=== PATIENT | female | born 1960 | race Hispanic/Latino ===

== ENCOUNTER 2017-03-12 10:04 | Day surgery (SDC) | payer MEDICARE, MEDICAID ==
[2016-03-15 19:54] VITALS: BMI 16.9
[2017-03-12 11:06] LABS: EOS % 0.2 % (1.5-5.0); GRAN # 4.16 (1.4-6.5); GRAN % 71.2 % (50.0-68.0); HEMATOCRIT 42.5 % (36.0-48.0); MEAN CORPUSCULAR HEMOGLOBIN 32.2 pg (25.0-35.0); MEAN CORPUSCULAR HGB CONC 34.6 g/dl (31.0-37.0); MONO # 0.7 (0.1-0.6); MONO % 11.6 % (1.0-6.0); RED CELL DISTRIBUTION WIDTH 13.8 % (11.5-14.5); WHITE BLOOD COUNT 5.8 10^3/ul (4.5-11.0)
[2017-03-12] MEDS ORDERED: Midazolam 2 MG/2 ML VIAL ONE (11:29)
[2017-03-12] MEDS ORDERED: Lidocaine 1% Inj (20ml) ONE (11:30)
[2017-03-12] MEDS ORDERED: Oxycodone/Acetaminophen 5/325 mg Tab PO PRN (13:36)
[2017-03-12] MEDS ORDERED: Sodium Chloride 0.45% 1,000 ML IV SCH (13:45)
[2017-03-12 14:34] VITALS: BP 133/88; PULSE 61; RESP 20; TEMP 98.1; O2SAT 97
--- NOTE | 2017-03-12 16:29 | RAD ---
HISTORY: lt lung bx COMPARISON: Portable chest 05/13/2015. FINDINGS: Right center venous chest port unchanged in position grossly. LUNGS: An interval left pulmonary nodule is appreciated at the inferior left lung zone with an additional smaller nodule identified more inferiorly approaching the left base laterally. The medial left apical mass is appreciated. No acute infiltrate bilaterally. PLEURA: No significant pleural effusion identified, no pneumothorax apparent. CARDIOVASCULAR: Normal. OSSEOUS STRUCTURES: No significant abnormalities. VISUALIZED UPPER ABDOMEN: Normal. OTHER FINDINGS: None. IMPRESSION: 1. No acute infiltrate pleural effusion or pneumothorax identified bilaterally. 2. 2 small nodules identified the inferior left lung zone in the interval as well as medial left apical mass.
--- NOTE | 2017-03-12 17:57 | CT ---
PROCEDURE: CT guided left upper lobe lung biopsy. HISTORY: Metastatic rectal carcinoma. Multiple pulmonary nodules. Evaluate for malignancy and MSI PHYSICIAN(S): Oscar Burk MD. TECHNIQUE: The relative risks and indications of the procedure were explained to the patient and consent obtained. The patient was placed supine on the CT scanner and preliminary images through the lung apices obtained. Conscious sedation and monitoring were provided throughout the procedure by a nurse. There is a dominant 4.5 cm mass at the left apex anteriorly.. A anterior approach was selected and the area prepped and draped in the usual sterile fashion. 1% Xylocaine was used to anesthetize the skin and soft tissues. A 19 gauge guiding needle was advanced into the 4.5 cm left apical mass. Its position was confirmed with CT. Using coaxial technique, multiple core biopsies were obtained. The postprocedure images show no evidence of large pneumothorax or significant hemorrhage.. IMPRESSION: 1. CT-guided left lung biopsy as described above.
== END 2017-03-12 14:25 | disposition home or self-care (01) ==
LOC: SDS 10:04
PROVIDERS: ATTEND Radiology Vascular & Interventional Radiology
DX: C78.02 Secondary malignant neoplasm of left lung (principal); C19 Malignant neoplasm of rectosigmoid junction; Z93.3 Colostomy status; Z98.42 Cataract extraction status, left eye; Z98.41 Cataract extraction status, right eye; F17.200 Nicotine dependence, unspecified, uncomplicated
CPT/HCPCS: 32405; 36415; 71010; 77012; 85025; 88305; 99152; J1642; J2250; J2405; J3010; J7030

== ENCOUNTER 2017-05-22 13:21 | Inpatient (IN) | payer MEDICARE, MEDICAID ==
[2017-05-22] MEDS ORDERED: Ipratropium 0.02% Inhal Soln (0.5 mg/2.5 ml) UD IH STA (13:42)
[2017-05-22] MEDS ORDERED: Sodium Chloride 0.9% 500 ML IV STA (13:44)
[2017-05-22] MEDS ORDERED: HYDROmorphone 1 mg/ml ISec IVP STA (14:15)
--- NOTE | 2017-05-22 14:32 | ED PDOC ---
Arrival/HPI - General Chief Complaint: Flu-like Symptoms Time Seen by Provider: 05/22/17 13:41 Historian: Patient - Critical Care Critical Care Minutes: 90 minutes - History of Present Illness Narrative History of Present Illness (Text): 05/22/17 14:25 A 57 year old female, whose past medical history includes metastatic colorectal caner since October 2014 on Folfiri-avastin chemotherapy regimen since 2016 every other 2 weeks, COPD, s/p colostomy placement on 05/12/15, and s/p chemotherapy port placement, presents to the emergency department complaining of hot and cold chills for the past several days. Patient notes increased diffuse bone pain and chronic productive cough with white mucous. Patient was sent into the emergency department by PMD for occult bacterium. Patient denies any fever, nausea, vomiting, abdominal pain, chest pain, shortnss of breath or any other affective foci. Time/Duration: Other (several days) Symptom Course: Unchanged Quality: Other Context: Home Past Medical History - Provider Review Nursing Documentation Reviewed: Yes - Infectious Disease Hx of Infectious Diseases: None - Tetanus Immunization Tetanus Immunization: Unknown - Cardiac Hx Cardiac Disorders: No Hx Pacemaker: No - Pulmonary Hx Respiratory Disorders: No Other/Comment: FORMER SMOKER - Neurological Hx Neurological Disorder: No Hx Paralysis: No - HEENT Hx HEENT Disorder: No - Renal Hx Renal Disorder: No - Endocrine/Metabolic Hx Endocrine Disorders: No - Hematological/Oncological Hx Blood Transfusions: Yes (2014) Hx Blood Transfusion Reaction: No - Integumentary Hx Dermatological Disorder: No Other/Comment: ON RADIATION TX WITH YANNICK RECTUM PERINEAL REDNESS & EDEMA, has healed, skin is now pink - Musculoskeletal/Rheumatological Hx Musculoskeletal Disorders: No - Gastrointestinal Hx Gastrointestinal Disorders: Yes (rectovaginal fistula) Hx Colostomy: Yes (LLQ) Other/Comment: 2cm x 1cm rectal mass noted, +cdif 02/2015 - Genitourinary/Gynecological Hx Genitourinary Disorders: No - Psychiatric Hx Emotional Abuse: No Hx Physical Abuse: No Hx Substance Use: No - Surgical History Other/Comment: LLQ colostomy. R chest port - Anesthesia Hx Anesthesia Reactions: No Hx Malignant Hyperthermia: No - Suicidal Assessment Feels Threatened In Home Enviroment: No Family/Social History - Physician Review Nursing Documentation Reviewed: Yes Family/Social History: No Known Family HX Smoking Status: Former Smoker Hx Alcohol Use: Yes (OCCASIONAL) Hx Substance Use: No Hx Substance Use Treatment: No Allergies/Home Meds Allergies/Adverse Reactions: Allergies piperacillin Allergy (Mild, Verified 05/22/17 19:37) ITCHING ITCHING AND REDNESS OF HANDS AND TINGLING IN LIPS tazobactam Allergy (Mild, Verified 05/22/17 19:37) ITCHING ITCHING AND REDNESS OF HANDS AND TINGLING IN LIPS Home Medications: Home Meds Medication Instructions Recorded Confirmed Ergocalciferol (Vitamin D2) 50,000 units PO FRI 03/04/16 05/22/17 [Vitamin D2] Ferrous Sulfate [Feosol] 325 mg PO DAILY 03/04/16 05/22/17 Pantoprazole Sodium [Protonix] 40 mg PO DAILY 06/10/16 05/22/17 Albuterol HFA [Ventolin HFA 90 2 puff IH Q6H PRN 03/11/17 05/22/17 mcg/actuation (8 g)] Doxycycline Monohydrate 100 mg PO BID 03/11/17 05/22/17 Magnesium Oxide [Magnesium] 400 mg PO TID 03/11/17 05/22/17 Pyridoxine [Vitamin B6] 100 mg PO DAILY 03/11/17 05/22/17 oxyCODONE [oxyCODONE Immediate 30 mg PO Q6H PRN 03/11/17 05/22/17 Release Tab] Review of Systems - Physician Review All systems were reviewed & negative as marked: Yes - Review of Systems Constitutional: Night Sweats. absent: Fevers Eyes: Normal ENT: Normal Respiratory: Cough, Sputum. absent: SOB Cardiovascular: absent: Chest Pain Gastrointestinal: absent: Abdominal Pain, Nausea, Vomiting Genitourinary Female: Normal Musculoskeletal: Other (bone pain) Skin: Normal Neurological: Normal Endocrine: Normal Hemo/Lymphatic: Normal Psychiatric: Normal Physical Exam Vital Signs Reviewed: Yes Vital Signs Temp Pulse Resp BP Pulse Ox 05/22/17 18:23 68 17 126/68 05/22/17 18:09 69 18 139/93 H 99 05/22/17 13:32 98.6 F 59 L 17 157/94 H 96 Temperature: Afebrile Blood Pressure: Hypertensive Pulse: Bradycardic Respiratory Rate: Normal Appearance: Positive for: Well-Appearing, Non-Toxic, Comfortable Pain Distress: None Mental Status: Positive for: Alert and Oriented X 3 - Systems Exam Head: Present: Atraumatic, Normocephalic Pupils: Present: PERRL Extroacular Muscles: Present: EOMI Conjunctiva: Present: Normal Mouth: Present: Moist Mucous Membranes Neck: Present: Normal Range of Motion Respiratory/Chest: Present: Clear to Auscultation, Good Air Exchange. No: Respiratory Distress, Accessory Muscle Use Cardiovascular: Present: Regular Rate and Rhythm, Normal S1, S2. No: Murmurs Abdomen: Present: Normal Bowel Sounds. No: Tenderness, Distention, Peritoneal Signs Back: Present: Normal Inspection Upper Extremity: Present: Normal Inspection. No: Cyanosis, Edema Lower Extremity: Present: Normal Inspection. No: Edema Neurological: Present: GCS=15, CN II-XII Intact, Speech Normal Skin: Present: Warm, Dry, Normal Color. No: Rashes Psychiatric: Present: Alert, Oriented x 3, Normal Insight, Normal Concentration Medical Decision Making ED Course and Treatment: 05/22/17 14:25 Impression: A 57 year old female with chills, increased bone pain and chronic productive cough. Sent by PMD for occult bacterium. Plan: -- Chest xray -- EKG -- Labs -- Blood and Urine culture -- Dilaudid, Atrovent and IV fluids -- Reassess and disposition Progress Notes: Report Date : 05/22/2017 14:45:09 Procedure: Chest xray Dictator : Melissa Rabago MD IMPRESSION: 1. Right MediPort terminates at the cavoatrial junction. 2. 2 metastatic nodules in the left lung and 1 in the right upper lobe. 3. No evidence of pneumonia. - Lab Interpretations Lab Results: 05/22/17 14:15 05/22/17 14:15 Lab Results 05/22/17 14:15: Sodium 142, Chloride 110 H, Potassium 3.7, Carbon Dioxide 21, Anion Gap 14, BUN 8, Creatinine 0.4 L, Est GFR ( Amer) > 60, Est GFR (Non -Af Amer) > 60, Random Glucose 107, Calcium 9.4, Total Bilirubin 0.7, AST 34, ALT 55, Alkaline Phosphatase 122, Lactate Dehydrogenase 395, Total Creatine Kinase < 20 L, Troponin I < 0.01, NT-Pro-B Natriuret Pep 304, Total Protein 6.9 , Albumin 4.0, Globulin 3.0, Albumin/Globulin Ratio 1.3 05/22/17 14:15: pO2 70 H, VBG pH 7.37, VBG pCO2 42.0, VBG HCO3 24.3, VBG Total CO2 25.6, VBG O2 Sat (Calc) 94.9 H, VBG Base Excess -1.1 L, VBG Potassium 3.8, Sodium 143.0, Chloride 108.0 H, Glucose 103, Lactate 2.0, FiO2 21.0, Venous Blood Potassium 3.8 05/22/17 14:15: PT 12.5, INR 1.14 H, APTT 29.5 05/22/17 14:15: WBC 4.3 L D, RBC 4.18, Hgb 13.4, Hct 40.7, MCV 97.4 D, MCH 32.1 , MCHC 32.9, RDW 15.8 H, Plt Count 169, MPV 9.8, Gran % 87.1 H, Lymph % (Auto) 10.6 L, [place] % (Auto) 2.3, Eos % (Auto) 0.0 L, Baso % (Auto) 0.0, Gran # 3.76, Lymph # 0.5 L, [place] # 0.1, Eos # 0.0, Baso # 0.00 I have reviewed the lab results: Yes - RAD Interpretation Radiology Orders: 05/22/17 13:42 CHEST TWO VIEWS (PA/LAT) [RAD] Stat - Medication Orders Current Medication Orders: Acetaminophen (Tylenol 325mg Tab) 650 mg PO Q6H PRN PRN Reason: Fever >100.4 F Albuterol/Ipratropium (Duoneb 3 Mg/0.5 Mg (3 Ml) Ud) 3 ml IH [id number] LACHO Last Admin: 05/22/17 19:37 Dose: 3 ml Albuterol/Ipratropium (Duoneb 3 Mg/0.5 Mg (3 Ml) Ud) 3 ml IH Q2H PRN PRN Reason: Shortness of Breath Enoxaparin Sodium (Lovenox) 30 mg SC DAILY LACHO PRN Reason: Protocol Ergocalciferol (Drisdol 50,000 Intl Units Cap) 1 cap PO FRI LACHO Ferrous Sulfate (Feosol) 324 mg PO DAILY LACHO Meropenem 1 gm/ Dextrose 100 mls @ 100 mls/hr IVPB Q8 LAHCO PRN Reason: Protocol Stop: 05/29/17 23:16 Vancomycin HCl (Vancomycin 1gm) 1 gm in 250 mls @ 167 mls/hr IVPB Q12H LACHO PRN Reason: Protocol Montelukast Sodium (Singulair) 10 mg PO HS LACHO Last Admin: 05/22/17 21:06 Dose: 10 mg Ondansetron HCl (Zofran Inj) 4 mg IVP Q4H PRN PRN Reason: Nausea/Vomiting Oxycodone HCl (Oxycodone Immediate Release Tab) 15 mg PO Q4 PRN PRN Reason: Pain, moderate (4-7) Oxycodone HCl (Oxycodone Immediate Release Tab) 30 mg PO Q6H PRN PRN Reason: Pain, severe (8-10) Last Admin: 05/22/17 20:26 Dose: 30 mg MAR Pain Assessment Document 05/22/17 20:26 MB (Rec: 05/22/17 20:26 [id number]) Pain Reassessment Is this a pain reassessment? No Sleep Is patient sleeping during reassessment? No Presence of Pain Presence of Pain Yes Location Left, Right or Bilateral Bilateral Upper or Lower Lower Pain Location Body Site Leg Description Description Constant Intensity of Pain at present 8 Pantoprazole Sodium (Protonix Ec Tab) 40 mg PO ACB LACHO Discontinued Medications Sodium Chloride (Sodium Chloride 0.9%) 500 mls @ 999 mls/hr IV .Q31M STA Stop: 05/22/17 14:14 Last Admin: 05/22/17 14:00 Dose: 999 mls/hr eMAR Start Stop Document 05/22/17 14:00 RG (Rec: 05/22/17 14:15 RG [id number]) Intravenous Solution Start Date 05/22/17 Start Time 14:15 End Date 05/22/17 Ipratropium [place] (Atrovent) 0.5 mg IH STAT STA Stop: 05/22/17 13:43 Last Admin: 05/22/17 13:59 Dose: 0.5 mg Oxycodone HCl (Oxycodone Immediate Release Tab) 15 mg PO STAT STA Stop: 05/22/17 14:59 Last Admin: 05/22/17 15:09 Dose: 15 mg - Scribe Statement The provider has reviewed the documentation as recorded by the Loraibe Clarissa Garcia Provider Scribe Attestation: All medical record entries made by the Scribe were at my direction and personally dictated by me. I have reviewed the chart and agree that the record accurately reflects my personal performance of the history, physical exam, medical decision making, and the department course for this patient. I have also personally directed, reviewed, and agree with the discharge instructions and disposition. Disposition/Present on Arrival - Present on Arrival Any Indicators Present on Arrival: No History of DVT/PE: No History of Uncontrolled Diabetes: No Urinary Catheter: No History of Decub. Ulcer: No History Surgical Site Infection Following: None - Disposition Have Diagnosis and Disposition been Completed?: Yes Diagnosis: Upper respiratory infection Disposition: HOSPITALIZED Disposition Time: 21:00 Patient Plan: Admission Condition: GUARDED
[2017-05-22 14:42] LABS: GRAN # 3.76 (1.4-6.5); GRAN % 87.1 % (50.0-68.0); HEMATOCRIT 40.7 % (36.0-48.0); LYMPH # 0.5 (1.2-3.4); LYMPH % 10.6 % (22.0-35.0); MEAN CELL VOLUME 97.4 fl (80.0-105.0); MEAN CORPUSCULAR HEMOGLOBIN 32.1 pg (25.0-35.0); MEAN CORPUSCULAR HGB CONC 32.9 g/dl (31.0-37.0); MEAN PLATELET VOLUME 9.8 fl (7.0-11.0); MONO # 0.1 (0.1-0.6); MONO % 2.3 % (1.0-6.0); RED CELL DISTRIBUTION WIDTH 15.8 % (11.5-14.5); WHITE BLOOD COUNT 4.3 10^3/ul (4.5-11.0)
--- NOTE | 2017-05-22 14:46 | RAD ---
HISTORY: COMPARISON: 03/12/2017 TECHNIQUE: Chest PA and lateral FINDINGS: LINES AND TUBES: The right MediPort terminates at the cavoatrial junction LUNG AND PLEURA: The lungs are well inflated. There is an apparent nodule in the right upper lobe. There is redemonstration of lobular mass in the left medial upper lobe and left lower lobe. HEART AND MEDIASTINUM: The heart is not enlarged. The hilar and mediastinal contours are within normal limits. SKELETAL STRUCTURES: The bony structures are within normal limits for the patient's age. VISUALIZED UPPER ABDOMEN: Normal. OTHER FINDINGS: None. IMPRESSION: 1. Right MediPort terminates at the cavoatrial junction. 2. 2 metastatic nodules in the left lung and 1 in the right upper lobe. 3. No evidence of pneumonia.
[2017-05-22 14:50] LABS: VENOUS BLOOD GAS BASE EXCESS -1.1 mmol/L (0.0-2.0); VENOUS BLOOD PH 7.37 (7.32-7.43)
[2017-05-22 14:53] LABS: INR 1.14 (0.93-1.08); PARTIAL THROMBOPLASTIN TIME 29.5 Seconds (25.1-36.5)
[2017-05-22 14:58] LABS: TROPONIN I < 0.01 ng/mL
[2017-05-22] MEDS ORDERED: oxyCODONE 15 mg Immediate Release Tab PO STA (14:58)
[2017-05-22 15:15] LABS: ALB/GLOB RATIO 1.3 (1.1-1.8); ALKALINE PHOSPHATASE 122 U/L (38-126); ALT/SGPT 55 U/L (7-56); AST/SGOT 34 U/L (14-36); BILIRUBIN,TOTAL 0.7 mg/dL (0.2-1.3); BLOOD UREA NITROGEN 8 mg/dL (7-21); CALCIUM 9.4 mg/dL (8.4-10.5); CARBON DIOXIDE 21 mmol/L (21-33); CHLORIDE 110 mmol/L (98-107); GFR AFRICAN-AMERICAN > 60; GLUCOSE,RANDOM 107 mg/dL (70-110); POTASSIUM 3.7 mmol/L (3.6-5.0); SODIUM 142 mmol/L (132-148); TOTAL PROTEIN 6.9 g/dL (5.8-8.3)
[2017-05-22] MEDS ORDERED: Piperacill/Tazo 4.5gm in NS 4.5 GM/100 ML BAG IVPB STA (16:43)
--- NOTE | 2017-05-22 17:35 | CP.PCM.HP ---
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 Patient states on top of the chills she has been experiencing cough productive with whitish sputum. Denies sick contact. Admits to runny nose, but contributed that to the chemo side effect. Patient was also on Dr Brooks's office on 05/21 complaining of the same symptoms and at the time had blood cultures drawn which are so far negative, procal was elevated at 0.93. ROS: Patient denies decreased appetite, sleeps ok. Denies night sweats, denies fever, admits to chills. Denies n/v/d, dysurea, abdominal pain or constipation. Denies headache, dizziness or blurred vision Denies chest pain, or shortness of breath. Admits to petechial rash PMH: stage 4 metastatic rectal carcinoma metastatic to the lungs, with kras wild type positive, chronic abdominal pain. PSH: abdominoperitoneal resection and colostomy FMH: non contributory Social: Patient states she quit smoking when she found out she had the cancer, however smokes occasionally when she stressed, last tobacco was 2 weeks ago. Denies alcohol or illicit drug use. Allergy: piperacillin and tazobactam. Home meds: Please see araceli for full list. Present on Admission - Present on Admission Any Indicators Present on Admission: No History of DVT/PE: No Urinary Catheter: No Decubitus Ulcer Present: No History Surgical Site Infection Following: None Review of Systems - Review of Systems Review of Systems: As per HPI. Past Patient History - Infectious Disease Hx of Infectious Diseases: None - Tetanus Immunizations Tetanus Immunization: Unknown - Past Medical History & Family History Past Medical History?: Yes - Past Social History Smoking Status: Current Some Days Smoker Alcohol: None Drugs: Denies Home Situation {Lives}: With Family - CARDIAC Hx Cardiac Disorders: No Hx Pacemaker: No - PULMONARY Hx Respiratory Disorders: No Other/Comment: FORMER SMOKER - NEUROLOGICAL Hx Neurological Disorder: No Hx Paralysis: No - HEENT Hx HEENT Problems: No - RENAL Hx Chronic Kidney Disease: No - ENDOCRINE/METABOLIC Hx Endocrine Disorders: No - HEMATOLOGICAL/ONCOLOGICAL Hx Blood Transfusions: Yes (2014) Hx Blood Transfusion Reaction: No - INTEGUMENTARY Hx Dermatological Problems: No Other/Comment: ON RADIATION TX WITH YANNICK RECTUM PERINEAL REDNESS & EDEMA, has healed, skin is now pink - MUSCULOSKELETAL/RHEUMATOLOGICAL Hx Musculoskeletal Disorders: No - GASTROINTESTINAL Hx Gastrointestinal Disorders: Yes (rectovaginal fistula) Hx Colostomy: Yes (LLQ) Other/Comment: 2cm x 1cm rectal mass noted, +cdif 02/2015 - GENITOURINARY/GYNECOLOGICAL Hx Genitourinary Disorders: No - PSYCHIATRIC Hx Emotional Abuse: No Hx Physical Abuse: No Hx Substance Use: No - SURGICAL HISTORY Other/Comment: LLQ colostomy. R chest port - ANESTHESIA Hx Anesthesia Reactions: No Hx Malignant Hyperthermia: No Meds Allergies/Adverse Reactions: Allergies Allergy/AdvReac Type Severity Reaction Status Date / Time piperacillin Allergy Mild ITCHING Verified 05/22/17 19:37 tazobactam Allergy Mild ITCHING Verified 05/22/17 19:37 Physical Exam - Constitutional Appears: No Acute Distress, Older Than Stated Age, Cachectic, Chronically Ill - Head Exam Head Exam: ATRAUMATIC, NORMAL INSPECTION, NORMOCEPHALIC - Eye Exam Eye Exam: EOMI, Normal appearance, PERRL. absent: Scleral icterus - ENT Exam ENT Exam: Mucous Membranes Moist Additional comments: Dry, crusted rash on the nose. - Neck Exam Neck exam: Positive for: Normal Inspection. Negative for: Lymphadenopathy, Meningismus, Tenderness, Thyromegaly Additional comments: + Right sided port cath. - Respiratory Exam Respiratory Exam: Clear to Auscultation Bilateral, NORMAL BREATHING PATTERN. absent: Prolonged Expiratory Phase, Rales, Rhonchi, Wheezes, Respiratory Distress, Stridor - Cardiovascular Exam Cardiovascular Exam: REGULAR RHYTHM, RRR, +S1, +S2. absent: Irregular Rhythm, Systolic Murmur - GI/Abdominal Exam GI & Abdominal Exam: Normal Bowel Sounds, Soft. absent: Distended, Firm, Tenderness Additional comments: + colostomy bag with pink bowel, and small stool in the bag. - Extremities Exam Extremities exam: Positive for: normal inspection. Negative for: pedal edema - Back Exam Back exam: NORMAL INSPECTION - Neurological Exam Neurological exam: Alert, Oriented x3 - Psychiatric Exam Psychiatric exam: Normal Affect, Normal Mood - Skin Skin Exam: Dry, Intact, Petechiae, Rash, Warm Results - Vital Signs Recent Vital Signs: Last Vital Signs Temp 98.6 F 05/22/17 13:32 Pulse 59 L 05/22/17 13:32 Resp 17 05/22/17 13:32 BP 157/94 H 05/22/17 13:32 Pulse Ox 96 05/22/17 13:32 - Labs Result Diagrams: 05/23/17 07:00 05/23/17 07:00 Labs: Laboratory Results - last 24 hr 05/22/17 05/22/17 05/22/17 14:15 14:15 14:15 WBC 4.3 L D RBC 4.18 Hgb 13.4 Hct 40.7 MCV 97.4 D MCH 32.1 MCHC 32.9 RDW 15.8 H Plt Count 169 MPV 9.8 Gran % 87.1 H Lymph % (Auto) 10.6 L [place] % (Auto) 2.3 Eos % (Auto) 0.0 L Baso % (Auto) 0.0 Gran # 3.76 Lymph # 0.5 L [place] # 0.1 Eos # 0.0 Baso # 0.00 PT 12.5 INR 1.14 H APTT 29.5 pO2 70 H VBG pH 7.37 VBG pCO2 42.0 VBG HCO3 24.3 VBG Total CO2 25.6 VBG O2 Sat (Calc) 94.9 H VBG Base Excess -1.1 L VBG Potassium 3.8 Sodium 143.0 Chloride 108.0 H Glucose 103 Lactate 2.0 FiO2 21.0 Potassium Carbon Dioxide Anion Gap BUN Creatinine Est GFR ( Amer) Est GFR (Non-Af Amer) Random Glucose Calcium Total Bilirubin AST ALT Alkaline Phosphatase Lactate Dehydrogenase Total Creatine Kinase Troponin I NT-Pro-B Natriuret Pep Total Protein Albumin Globulin Albumin/Globulin Ratio Venous Blood Potassium 3.8 05/22/17 14:15 WBC RBC Hgb Hct MCV MCH MCHC RDW Plt Count MPV Gran % Lymph % (Auto) [place] % (Auto) Eos % (Auto) Baso % (Auto) Gran # Lymph # [place] # Eos # Baso # PT INR APTT pO2 VBG pH VBG pCO2 VBG HCO3 VBG Total CO2 VBG O2 Sat (Calc) VBG Base Excess VBG Potassium Sodium 142 Chloride 110 H Glucose Lactate FiO2 Potassium 3.7 Carbon Dioxide 21 Anion Gap 14 BUN 8 Creatinine 0.4 L Est GFR ( Amer) > 60 Est GFR (Non-Af Amer) > 60 Random Glucose 107 Calcium 9.4 Total Bilirubin 0.7 AST 34 ALT 55 Alkaline Phosphatase 122 Lactate Dehydrogenase 395 Total Creatine Kinase < 20 L Troponin I < 0.01 NT-Pro-B Natriuret Pep 304 Total Protein 6.9 Albumin 4.0 Globulin 3.0 Albumin/Globulin Ratio 1.3 Venous Blood Potassium Assessment & Plan - Assessment and Plan (Free Text) Assessment: Mrs Negron is a 57 y/o Female with pmh of stage 4 metastatic rectal carcinoma metastatic to the lung s/p bowel resection and colosotmy, currently on systemic chemotherapy with camptosar and vectibix, s/p on chemo last week whom presented with chills for 3 days and cough productive with whitish sputum. Patient had blood work in the office and was found to have elevated procalcitonin, blood cultures so far negative. Plan: 1) Chills in the setting of productive cough- likely acute bronchitis - in the setting elevated procal, r/o pneumonia versus copd exacerbation versus tumor compressing the airway causing cough versus chemo side effects - Pro bnp 304, thus less likely chf exacerbation - Chest x-ray with metastatic disease, no pneumonia - afebrile, mild neutropenia. - Patient to be admitted for further work up - Repeat cultures sent - will obtain echo to r/o vegetation due to chemo port - ID consulted, patient was started on merrem, doxy and vanco - Pulm is also consulted - Will obtain influenza A and B - Duonebs q6 standing dose and q2 prn - Tessalon pearls for cough - Tylenol prn for fever. 2) Stage 4 metastatic rectal cancer met to lung s/p surgery and on chemo - patient to continue chemo upon discharge - Oxycodone and percocet prn for pain 3) H/o chronic abdominal pain with colostomy - Gi consulted - protonix for gi prophylaxis 4) Dvt prophylaxis- Lovenox sc. 5) Deconditioned state: PT/OT consulted. Patient seen, examined and case discussed with Dr Alvarez. - Date & Time Date: 05/22/17 Time: 18:15
[2017-05-22] MEDS ORDERED: Albuterol-Ipratrop 3 mg / 0.5 (3 ml) UD IH PRN (17:59)
[2017-05-22 18:15] LABS: VENOUS BLOOD GAS BASE EXCESS -0.8 mmol/L (0.0-2.0); VENOUS BLOOD PH 7.31 (7.32-7.43)
[2017-05-22] MEDS: Albuterol-Ipratrop 3 mg / 0.5 (3 ml) UD IH SCH (19:37)
[2017-05-22] MEDS: oxyCODONE 30 mg Immediate Release Tab PO PRN (20:26)
[2017-05-22 21:59] VITALS: BMI 19.3
[2017-05-22] MEDS ORDERED: Influenza Vaccine 60 mcg/0.5 mL SYR (4YR UP) IM ONE (21:59)
[2017-05-23] MEDS: Albuterol-Ipratrop 3 mg / 0.5 (3 ml) UD IH SCH ×4 (01:08→20:01)
[2017-05-23] MEDS: Meropenem 1 GM in Dextrose 5% In Water 100 ML IVPB SCH ×4 (04:38→21:38)
[2017-05-23] MEDS: Vancomycin 1gm in NS 250ml 1 GM/250 ML BAG IVPB SCH ×3 (04:39→22:27)
[2017-05-23] MEDS: oxyCODONE 15 mg Immediate Release Tab PO PRN ×3 (04:44→16:36)
--- NOTE | 2017-05-23 06:49 | CP.PCM.PN ---
Subjective - Date & Time of Evaluation Date of Evaluation: 05/23/17 Time of Evaluation: 06:45 - Subjective Subjective: Heme onc progress note for Dr Brooks service. Patient reports no acute events overnight. Reports she's feeling fatigued. States the chills has improved a little. Denies n/v/d. The cough is also improving with duonebs. Denies cp or sob. Objective - Vital Signs/Intake and Output Vital Signs (last 24 hours): Temp Pulse Resp BP Pulse Ox 97.9 F 68 17 126/68 99 05/22/17 21:27 05/22/17 21:27 05/22/17 21:27 05/22/17 21:27 05/22/17 18:09 Intake and Output: 05/22/17 05/23/17 18:59 06:59 Intake Total 960 Balance 960 - Medications Medications: Current Medications Acetaminophen (Tylenol 325mg Tab) 650 mg PO Q6H PRN PRN Reason: Fever >100.4 F Albuterol/Ipratropium (Duoneb 3 Mg/0.5 Mg (3 Ml) Ud) 3 ml IH [id number] [facility] Last Admin: 05/23/17 01:08 Dose: Not Given Albuterol/Ipratropium (Duoneb 3 Mg/0.5 Mg (3 Ml) Ud) 3 ml IH Q2H PRN PRN Reason: Shortness of Breath Enoxaparin Sodium (Lovenox) 30 mg SC DAILY [facility] PRN Reason: Protocol Ergocalciferol (Drisdol 50,000 Intl Units Cap) 1 cap PO FRI [facility] Ferrous Sulfate (Feosol) 324 mg PO DAILY [facility] Meropenem 1 gm/ Dextrose 100 mls @ 100 mls/hr IVPB Q8 [facility] PRN Reason: Protocol Stop: 05/29/17 23:16 Last Admin: 05/23/17 05:27 Dose: 100 mls/hr Vancomycin HCl (Vancomycin 1gm) 1 gm in 250 mls @ 167 mls/hr IVPB Q12H [facility] PRN Reason: Protocol Last Admin: 05/23/17 04:39 Dose: Not Given Montelukast Sodium (Singulair) 10 mg PO HS [facility] Last Admin: 05/22/17 21:06 Dose: 10 mg Ondansetron HCl (Zofran Inj) 4 mg IVP Q4H PRN PRN Reason: Nausea/Vomiting Oxycodone HCl (Oxycodone Immediate Release Tab) 15 mg PO Q4 PRN PRN Reason: Pain, moderate (4-7) Last Admin: 05/23/17 04:44 Dose: 15 mg Oxycodone HCl (Oxycodone Immediate Release Tab) 30 mg PO Q6H PRN PRN Reason: Pain, severe (8-10) Last Admin: 05/22/17 20:26 Dose: 30 mg Pantoprazole Sodium (Protonix Ec Tab) 40 mg PO ACB [facility] - Labs Labs: PT 12.5 SECONDS (9.4-12.5) 05/22/17 14:15 INR 1.14 (0.93-1.08) H 05/22/17 14:15 APTT 29.5 Seconds (25.1-36.5) 05/22/17 14:15 - Constitutional Appears: No Acute Distress, Cachectic, Chronically Ill - Head Exam Head Exam: ATRAUMATIC, NORMAL INSPECTION, NORMOCEPHALIC - Eye Exam Eye Exam: EOMI, Normal appearance, PERRL. absent: Scleral icterus - ENT Exam ENT Exam: Mucous Membranes Moist - Neck Exam Neck Exam: Normal Inspection - Respiratory Exam Respiratory Exam: Prolonged Expiratory Phase, Wheezes (mild at the right lower lobe. ). absent: Rales, Rhonchi, Respiratory Distress, Stridor, NORMAL BREATHING PATTERN - Cardiovascular Exam Cardiovascular Exam: REGULAR RHYTHM, +S1, +S2. absent: Murmur - GI/Abdominal Exam GI & Abdominal Exam: Soft, Normal Bowel Sounds. absent: Distended, Firm, Guarding, Rigid, Tenderness - Extremities Exam Extremities Exam: Normal Inspection. 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 Plan: 1) Shaking chills and productive cough: - Since patient is immunocompromised, with shaking chills, elevated procalcitonin, with productive cough in the setting of chemo port, its worrisome for HAP versus bacterial endocarditis especially with HACEK organism which are known to present in the setting of negative blood cultures. - repeat cultures pending, - ID following, on merrem, doxy, and vanco - Pulm is also following - Will continue with duonebs and tessalon perlse for cough. - Tylenol prn for fever - Cardiac echo is pending to evaluate for vegetation, if negative and symptoms persists, patient might need MARCIN. 2) Stage 4 metastatic rectal cancer met to lung s/p surgery and on chemo - Continue with oxycodone and percocet prn for pain 3) H/o chronic abdominal pain with colostomy - Gi consulted - protonix for gi prophylaxis 4) Dvt prophylaxis- Lovenox sc. 5) Deconditioned state: PT/OT consulted. Patient seen, examined and case discussed with Dr Brooks.
[2017-05-23 07:25] LABS: BASO # 0.01 K/mm3 (0.0-2.0); BASO % 0.3 % (0.0-3.0); EOS % 0.5 % (1.5-5.0); GRAN # 2.39 (1.4-6.5); GRAN % 59.7 % (50.0-68.0); HEMATOCRIT 36.2 % (36.0-48.0); LYMPH # 1.2 (1.2-3.4); MEAN CELL VOLUME 98.1 fl (80.0-105.0); MEAN CORPUSCULAR HEMOGLOBIN 32.8 pg (25.0-35.0); MEAN CORPUSCULAR HGB CONC 33.4 g/dl (31.0-37.0); MEAN PLATELET VOLUME 9.9 fl (7.0-11.0); MONO # 0.4 (0.1-0.6); MONO % 9.5 % (1.0-6.0); RED CELL DISTRIBUTION WIDTH 16.1 % (11.5-14.5)
[2017-05-23] MEDS: Pantoprazole 40 mg EC Tab PO SCH (08:07)
[2017-05-23 08:26] LABS: ALB/GLOB RATIO 1.3 (1.1-1.8); ALKALINE PHOSPHATASE 96 U/L (38-126); ALT/SGPT 48 U/L (7-56); AST/SGOT 27 U/L (14-36); BILIRUBIN,TOTAL 0.5 mg/dL (0.2-1.3); BLOOD UREA NITROGEN 10 mg/dL (7-21); CARBON DIOXIDE 26 mmol/L (21-33); CHLORIDE 110 mmol/L (98-107); GFR AFRICAN-AMERICAN > 60; GLUCOSE,RANDOM 83 mg/dL (70-110); POTASSIUM 3.8 mmol/L (3.6-5.0); SODIUM 141 mmol/L (132-148); TOTAL PROTEIN 5.8 g/dL (5.8-8.3)
[2017-05-23] MEDS ORDERED: Non Formulary Medication (Ferrous Sulfate [Feosol] 325 MG) PO SCH (10:00)
[2017-05-23] MEDS ORDERED: Pantoprazole 20 mg EC Tab PO SCH (10:00)
[2017-05-23] MEDS ORDERED: Ergocalciferol 50,000 Intl Units Cap PO SCH (10:00)
[2017-05-23] MEDS: Enoxaparin 30 mg Syringe SC SCH (10:20)
--- NOTE | 2017-05-23 11:25 | CP.PCM.CON ---
<Idania King - Last Filed: 05/23/17 11:21> History of Present Illness - History of Present Illness History of Present Illness: Seen and examined at bedside this a.m., chart reviewed. Request for GI consult for abdominal pain. HPI: This is an 57-year-old female with a past medical history of metastatic colorectal cancer with metastasis to the lungs diagnosed back in 2014 currently on chemotherapy, patient is on Campotosar and Vectibix. Last chemotherapy was 2 weeks ago, she reports that she has every 3 weeks. On Friday she started having chills, couging w/sputum but clear. Denies sick contact. She did experience 2 days ago mid abdominal pain near colostomy which was intermittent, currently she has no pain. The stool in the colostomy is formed soft brown stool , patient denies diarrhea or melena . Denies post prandial abdominal pain, has good appetite. Last colon was in 2014 done at [facility] , denies EGD, at times get acid reflux, on PPI. On admission had CXR that reports 2 metestatic nodules in the left lung and 1 in the upper right lobe, no pneumonia. Denies SOB or chest pain. Influenza is negative. PMH: Metestatic colorectal cancer w/ ramon to Lungs PSH: Abdominal peritoneal resection with colostomy ALllergies: pipercillin, tazobactam Family HX: noncontributory Social HX: former smoker, quit when found out have cancer, denies etoh/drugs MEDs: reviewed as per MAR ROS: systems reviewed with positive findings, see HPI Past Patient History - Infectious Disease Hx of Infectious Diseases: None - Tetanus Immunizations Tetanus Immunization: Unknown - Past Medical History & Family History Past Medical History?: Yes - Past Social History Smoking Status: Current Some Days Smoker Alcohol: None Drugs: Denies Home Situation {Lives}: With Family - CARDIAC Hx Cardiac Disorders: No Hx Pacemaker: No - PULMONARY Hx Respiratory Disorders: No Other/Comment: FORMER SMOKER - NEUROLOGICAL Hx Neurological Disorder: No Hx Paralysis: No - HEENT Hx HEENT Problems: No - RENAL Hx Chronic Kidney Disease: No - ENDOCRINE/METABOLIC Hx Endocrine Disorders: No - HEMATOLOGICAL/ONCOLOGICAL Hx Blood Transfusions: Yes (2014) Hx Blood Transfusion Reaction: No - INTEGUMENTARY Hx Dermatological Problems: No Other/Comment: ON RADIATION TX WITH YANNICK RECTUM PERINEAL REDNESS & EDEMA, has healed, skin is now pink - MUSCULOSKELETAL/RHEUMATOLOGICAL Hx Musculoskeletal Disorders: No - GASTROINTESTINAL Hx Gastrointestinal Disorders: Yes (rectovaginal fistula) Hx Colostomy: Yes (LLQ) Other/Comment: 2cm x 1cm rectal mass noted, +cdif 02/2015 - GENITOURINARY/GYNECOLOGICAL Hx Genitourinary Disorders: No - PSYCHIATRIC Hx Emotional Abuse: No Hx Physical Abuse: No Hx Substance Use: No - SURGICAL HISTORY Other/Comment: LLQ colostomy. R chest port - ANESTHESIA Hx Anesthesia Reactions: No Hx Malignant Hyperthermia: No Meds Allergies/Adverse Reactions: Allergies Allergy/AdvReac Type Severity Reaction Status Date / Time piperacillin Allergy Mild ITCHING Verified 05/22/17 19:37 tazobactam Allergy Mild ITCHING Verified 05/22/17 19:37 - Medications Medications: Current Medications Acetaminophen (Tylenol 325mg Tab) 650 mg PO Q6H PRN PRN Reason: Fever >100.4 F Albuterol/Ipratropium (Duoneb 3 Mg/0.5 Mg (3 Ml) Ud) 3 ml IH [id number] [facility] Last Admin: 05/23/17 07:29 Dose: 3 ml Albuterol/Ipratropium (Duoneb 3 Mg/0.5 Mg (3 Ml) Ud) 3 ml IH Q2H PRN PRN Reason: Shortness of Breath Benzonatate (Tessalon Perles) 100 mg PO TID [facility] Last Admin: 05/23/17 10:19 Dose: 100 mg Doxycycline Hyclate (Doryx) 100 mg PO Q12 [facility] PRN Reason: Protocol Last Admin: 05/23/17 10:19 Dose: 100 mg Enoxaparin Sodium (Lovenox) 30 mg SC DAILY [facility] PRN Reason: Protocol Last Admin: 05/23/17 10:20 Dose: 30 mg Ergocalciferol (Drisdol 50,000 Intl Units Cap) 1 cap PO FRI [facility] Last Admin: 05/23/17 10:19 Dose: 1 cap Ferrous Sulfate (Feosol) 324 mg PO DAILY [facility] Last Admin: 05/23/17 10:19 Dose: 324 mg Meropenem 1 gm/ Dextrose 100 mls @ 100 mls/hr IVPB Q8 [facility] PRN Reason: Protocol Stop: 05/29/17 23:16 Last Admin: 05/23/17 05:27 Dose: 100 mls/hr Vancomycin HCl (Vancomycin 1gm) 1 gm in 250 mls @ 167 mls/hr IVPB Q12H [facility] PRN Reason: Protocol Last Admin: 05/23/17 04:39 Dose: Not Given Montelukast Sodium (Singulair) 10 mg PO HS [facility] Last Admin: 05/22/17 21:06 Dose: 10 mg Ondansetron HCl (Zofran Inj) 4 mg IVP Q4H PRN PRN Reason: Nausea/Vomiting Oxycodone HCl (Oxycodone Immediate Release Tab) 15 mg PO Q4 PRN PRN Reason: Pain, moderate (4-7) Last Admin: 05/23/17 10:19 Dose: 15 mg Oxycodone HCl (Oxycodone Immediate Release Tab) 30 mg PO Q6H PRN PRN Reason: Pain, severe (8-10) Last Admin: 05/22/17 20:26 Dose: 30 mg Pantoprazole Sodium (Protonix Ec Tab) 40 mg PO ACB [facility] Last Admin: 05/23/17 08:07 Dose: 40 mg Physical Exam - Constitutional Appears: No Acute Distress - Head Exam Head Exam: NORMOCEPHALIC - Eye Exam Eye Exam: Normal appearance. absent: Scleral icterus - ENT Exam ENT Exam: Mucous Membranes Moist - Neck Exam Neck exam: Positive for: Normal Inspection - Respiratory Exam Respiratory Exam: Decreased Breath Sounds, NORMAL BREATHING PATTERN. absent: Respiratory Distress - Cardiovascular Exam Cardiovascular Exam: +S1, +S2 - GI/Abdominal Exam GI & Abdominal Exam: Normal Bowel Sounds, Soft. absent: Guarding, Rebound, Tenderness Additional comments: colosotomy present, with soft formed brown stool, stoma is pink, area is nontender. - Extremities Exam Extremities exam: Positive for: pedal pulses present. Negative for: calf tenderness, pedal edema - Neurological Exam Neurological exam: Alert, Oriented x3 - Skin Skin Exam: Dry, Warm Results - Vital Signs Recent Vital Signs: Last Vital Signs Temp 97.4 F L 05/23/17 08:08 Pulse 56 L 05/23/17 08:08 Resp 16 05/23/17 08:08 BP 132/85 05/23/17 08:08 Pulse Ox 97 05/23/17 08:08 - Labs Result Diagrams: 05/23/17 07:00 05/23/17 07:00 Labs: Laboratory Results - last 24 hr 05/22/17 05/23/17 05/23/17 18:12 06:11 07:00 WBC 4.0 L RBC 3.69 Hgb 12.1 Hct 36.2 MCV 98.1 MCH 32.8 MCHC 33.4 RDW 16.1 H Plt Count 131 MPV 9.9 Gran % 59.7 Lymph % (Auto) 30.0 [place] % (Auto) 9.5 H Eos % (Auto) 0.5 L Baso % (Auto) 0.3 Gran # 2.39 Lymph # 1.2 [place] # 0.4 Eos # 0.0 Baso # 0.01 pO2 42 VBG pH 7.31 L VBG pCO2 52.0 VBG HCO3 26.2 VBG Total CO2 27.8 VBG O2 Sat (Calc) 74.3 H VBG Base Excess -0.8 L VBG Potassium 3.7 Sodium 143.0 Chloride 110.0 H Glucose 165 H Lactate 2.0 FiO2 21.0 Potassium Carbon Dioxide Anion Gap BUN Creatinine Est GFR ( Amer) Est GFR (Non-Af Amer) Random Glucose Calcium Total Bilirubin AST ALT Alkaline Phosphatase Total Protein Albumin Globulin Albumin/Globulin Ratio Venous Blood Potassium 3.7 Influenza Typ A,B (EIA) Negative for flu a/b 05/23/17 07:00 WBC RBC Hgb Hct MCV MCH MCHC RDW Plt Count MPV Gran % Lymph % (Auto) [place] % (Auto) Eos % (Auto) Baso % (Auto) Gran # Lymph # [place] # Eos # Baso # pO2 VBG pH VBG pCO2 VBG HCO3 VBG Total CO2 VBG O2 Sat (Calc) VBG Base Excess VBG Potassium Sodium 141 Chloride 110 H Glucose Lactate FiO2 Potassium 3.8 Carbon Dioxide 26 Anion Gap 9 L BUN 10 Creatinine 0.5 L Est GFR ( Amer) > 60 Est GFR (Non-Af Amer) > 60 Random Glucose 83 Calcium 9.0 Total Bilirubin 0.5 AST 27 ALT 48 Alkaline Phosphatase 96 Total Protein 5.8 Albumin 3.3 Globulin 2.5 Albumin/Globulin Ratio 1.3 Venous Blood Potassium Influenza Typ A,B (EIA) Assessment & Plan - Assessment and Plan (Free Text) Assessment: ASSESSMENT: Metestatic colorectal cancer w/ metastasis to Lungs Abdominal Pain, currently denies pain, has colostomy Shaking/Chills/productive cough, r/o Sepsis, r/o endocarditis PLAN: on IV antibiotics pending echo on Lovenox continue PPI as per ID, oncology,pulmonology consider ct scan abdomen and pelvis with oral contrast further evaluation. Thank you for this consult and for allowing us to participate in your patient care, further evaluation based upon clinical course. Seen and discussed w/ Dr. Dvaid. <Alfredo David V - Last Filed: 05/24/17 00:59> Meds - Medications Medications: Current Medications Acetaminophen (Tylenol 325mg Tab) 650 mg PO Q6H PRN PRN Reason: Fever >100.4 F Albuterol/Ipratropium (Duoneb 3 Mg/0.5 Mg (3 Ml) Ud) 3 ml IH [id number] [facility] Last Admin: 05/23/17 20:01 Dose: 3 ml Albuterol/Ipratropium (Duoneb 3 Mg/0.5 Mg (3 Ml) Ud) 3 ml IH Q2H PRN PRN Reason: Shortness of Breath Benzonatate (Tessalon Perles) 100 mg PO TID [facility] Last Admin: 05/23/17 18:16 Dose: 100 mg Doxycycline Hyclate (Doryx) 100 mg PO Q12 [facility] PRN Reason: Protocol Last Admin: 05/23/17 21:37 Dose: 100 mg Enoxaparin Sodium (Lovenox) 30 mg SC DAILY [facility] PRN Reason: Protocol Last Admin: 05/23/17 10:20 Dose: 30 mg Ergocalciferol (Drisdol 50,000 Intl Units Cap) 1 cap PO FRI [facility] Last Admin: 05/23/17 10:19 Dose: 1 cap Ferrous Sulfate (Feosol) 324 mg PO DAILY [facility] Last Admin: 05/23/17 10:19 Dose: 324 mg Fluticasone Propionate (Flonase) 1 actuation NS BID [facility] Meropenem 1 gm/ Dextrose 100 mls @ 100 mls/hr IVPB Q8 [facility] PRN Reason: Protocol Stop: 05/29/17 23:16 Last Admin: 05/23/17 21:38 Dose: 100 mls/hr Vancomycin HCl (Vancomycin 1gm) 1 gm in 250 mls @ 167 mls/hr IVPB Q12H [facility] PRN Reason: Protocol Last Admin: 05/23/17 22:27 Dose: 167 mls/hr Methylprednisolone (Solu-Medrol) 20 mg IVP Q12 [facility] Montelukast Sodium (Singulair) 10 mg PO HS [facility] Last Admin: 05/23/17 21:37 Dose: 10 mg Ondansetron HCl (Zofran Inj) 4 mg IVP Q4H PRN PRN Reason: Nausea/Vomiting Oxycodone HCl (Oxycodone Immediate Release Tab) 15 mg PO Q4 PRN PRN Reason: Pain, moderate (4-7) Last Admin: 05/23/17 16:36 Dose: 15 mg Oxycodone HCl (Oxycodone Immediate Release Tab) 30 mg PO Q6H PRN PRN Reason: Pain, severe (8-10) Last Admin: 05/23/17 23:37 Dose: 30 mg Pantoprazole Sodium (Protonix Ec Tab) 40 mg PO ACB [facility] Last Admin: 05/23/17 08:07 Dose: 40 mg Results - Vital Signs Recent Vital Signs: Last Vital Signs Temp 98.4 F 05/23/17 16:00 Pulse 69 05/23/17 16:00 Resp 18 05/23/17 16:00 BP 113/72 05/23/17 16:00 Pulse Ox 100 05/23/17 16:00 - Labs Result Diagrams: 05/23/17 07:00 05/23/17 07:00 Labs: Laboratory Results - last 24 hr 05/23/17 05/23/17 05/23/17 06:11 07:00 07:00 WBC 4.0 L RBC 3.69 Hgb 12.1 Hct 36.2 MCV 98.1 MCH 32.8 MCHC 33.4 RDW 16.1 H Plt Count 131 MPV 9.9 Gran % 59.7 Lymph % (Auto) 30.0 [place] % (Auto) 9.5 H Eos % (Auto) 0.5 L Baso % (Auto) 0.3 Gran # 2.39 Lymph # 1.2 [place] # 0.4 Eos # 0.0 Baso # 0.01 Sodium 141 Potassium 3.8 Chloride 110 H Carbon Dioxide 26 Anion Gap 9 L BUN 10 Creatinine 0.5 L Est GFR ( Amer) > 60 Est GFR (Non-Af Amer) > 60 Random Glucose 83 Calcium 9.0 Magnesium Total Bilirubin 0.5 AST 27 ALT 48 Alkaline Phosphatase 96 Total Protein 5.8 Albumin 3.3 Globulin 2.5 Albumin/Globulin Ratio 1.3 Influenza Typ A,B (EIA) Negative for flu a/b 05/23/17 07:00 WBC RBC Hgb Hct MCV MCH MCHC RDW Plt Count MPV Gran % Lymph % (Auto) [place] % (Auto) Eos % (Auto) Baso % (Auto) Gran # Lymph # [place] # Eos # Baso # Sodium Potassium Chloride Carbon Dioxide Anion Gap BUN Creatinine Est GFR ( Amer) Est GFR (Non-Af Amer) Random Glucose Calcium Magnesium 1.4 L Total Bilirubin AST ALT Alkaline Phosphatase Total Protein Albumin Globulin Albumin/Globulin Ratio Influenza Typ A,B (EIA) Attending/Attestation - Attestation I have personally seen and examined this patient.: Yes I have fully participated in the care of the patient.: Yes I have reviewed all pertinent clinical information: Yes Notes (Text): p 05/24/17 00:42
--- NOTE | 2017-05-23 16:05 | CARD ---
APPROVED REPORT EXAM: Two-dimensional and M-mode echocardiogram with Doppler and color Doppler. INDICATION Dyspnea 2D DIMENSIONS Left Atrium (2D)3.6 (1.6-4.0cm)IVSd0.8 (0.7-1.1cm) LVDd4.5 (3.9-5.9cm)PWd1.1 (0.7-1.1cm) LVDs2.8 (2.5-4.0cm)FS (%) 36.8 % LVEF (%)66.9 (>50%) M-Mode DIMENSIONS Aortic Root3.00 (2.2-3.7cm)Aortic Cusp Exc.1.70 (1.5-2.0cm) Aortic Valve AoV Peak Shqogmcq012.0cm/Sandro Peak GR.7mmHg Mitral Valve MV E Kvqxhirr88.5cm/sMV A Qpbntsmz12.7cm/sE/A ratio1.2 TDI Lateral E' Peak V14.00cm/sMedial E' Peak V8.38cm/sE/Lateral E'5.3 E/Medial E'8.9 Pulmonary Valve PV Peak Csdnejsi90.0cm/sPV Peak Grad.2mmHg Tricuspid Valve TR Peak [id number]/sRAP [id number] Peak Gr.20mmHg [id number] LEFT VENTRICLE The left ventricle is normal size. There is normal left ventricular wall thickness. The left ventricular function is normal. The left ventricular ejection fraction is within the normal range. There is normal LV segmental wall motion. Transmitral Doppler flow pattern is Grade I-abnormal relaxation pattern. RIGHT VENTRICLE The right ventricle is normal size. There is normal right ventricular wall thickness. The right ventricular systolic function is normal. ATRIA The left atrium size is normal. The right atrium size is normal. AORTIC VALVE The aortic valve is not well visualized. No aortic regurgitation is present. There is no aortic valvular stenosis. MITRAL VALVE The mitral valve is normal in structure. There is no mitral valve regurgitation noted. TRICUSPID VALVE There is trace tricuspid regurgitation. PULMONIC VALVE There is trace pulmonic valvular regurgitation. GREAT VESSELS The aortic root is normal in size. The IVC is normal in size and collapses >50% with inspiration. PERICARDIAL EFFUSION There is a trace loculated anterior pericardial effusion. <Conclusion> The left ventricle is normal size. There is normal left ventricular wall thickness. The left ventricular function is normal. The left ventricular ejection fraction is within the normal range. There is normal LV segmental wall motion. Transmitral Doppler flow pattern is Grade I-abnormal relaxation pattern.
--- NOTE | 2017-05-23 17:40 | CARD ---
APPROVED REPORT EKG Measurement Heart [id number] <Conclusion> Sinus bradycardia Possible Left atrial enlargement T wave abnormality, consider anterior ischemia Abnormal ECG
--- NOTE | 2017-05-23 18:47 | CP.PCM.CON ---
History of Present Illness - History of Present Illness History of Present Illness: 57 year old female with PMH of metastatic rectal cancer (to the lungs) on chemotherapy with history of rectovaginal fistula S/P loop colostomy, history of treatment for Group C strep bacteremia,history of treatment for ESBL E. coli in the urine was brought in [place] [facility]'s office because the patient was complaining of chills for the past 3 days. She is complaining of dry cough but no shortness of breath, no rhinorrhea, some mylagias. She had not measured her temperatures at home. She denies headache or dizziness, no chest pain, no pain along the right chest wall port-a-cath, no nausea or vomiting, no abdominal pain, no diarrhea, no dysuria, no dysphagia, no sore throat. Infectious Diseases consult is requested to further evaluate and manage. Review of Systems - Review of Systems All systems: reviewed and no additional remarkable complaints except (as per HPI ) Past Patient History - Infectious Disease Hx of Infectious Diseases: None - Tetanus Immunizations Tetanus Immunization: Unknown - Past Medical History & Family History Past Medical History?: Yes - Past Social History Smoking Status: Current Some Days Smoker - CARDIAC Hx Cardiac Disorders: No Hx Pacemaker: No - PULMONARY Hx Respiratory Disorders: Yes (SMOKES OCCASIONALLY. LAST SMOKED MAR 2017 1 CIG.DEPENDING ON MOOD.) Hx Chronic Obstructive Pulmonary Disease (COPD): Yes Other/Comment: FORMER SMOKER - NEUROLOGICAL Hx Neurological Disorder: No - HEENT Hx HEENT Problems: No - RENAL Hx Chronic Kidney Disease: No - ENDOCRINE/METABOLIC Hx Endocrine Disorders: No - HEMATOLOGICAL/ONCOLOGICAL Hx Blood Disorders: Yes Hx Anemia: Yes (BT) Hx Cancer: Yes (RECTAL CA WITH LUNG METS COLON) Hx Chemotherapy: Yes Other/Comment: Colorectal CA - INTEGUMENTARY Hx Dermatological Problems: Yes Other/Comment: ON RADIATION TX WITH YANNICK RECTUM PERINEAL REDNESS & EDEMA, has healed, skin is now pink. LEFT COLOSTOMY. BILATERAL GROIN RASH - MUSCULOSKELETAL/RHEUMATOLOGICAL Hx Musculoskeletal Disorders: Yes Hx Back Pain: Yes Hx Falls: Yes - GASTROINTESTINAL Hx Gastrointestinal Disorders: Yes (rectovaginal fistula,HEMORRHOIDS) Hx Colostomy: Yes (LLQ) Other/Comment: 2cm x 1cm rectal mass noted, +cdif 02/2015 - GENITOURINARY/GYNECOLOGICAL Hx Genitourinary Disorders: No - PSYCHIATRIC Hx Emotional Abuse: No Hx Physical Abuse: No Hx Substance Use: No - SURGICAL HISTORY Hx Surgeries: Yes Other/Comment: LLQ colostomy. R chest port - ANESTHESIA Hx Anesthesia Reactions: No Hx Malignant Hyperthermia: No Meds Allergies/Adverse Reactions: Allergies Allergy/AdvReac Type Severity Reaction Status Date / Time piperacillin Allergy Mild ITCHING Verified 05/22/17 19:37 tazobactam Allergy Mild ITCHING Verified 05/22/17 19:37 - Medications Medications: Current Medications Acetaminophen (Tylenol 325mg Tab) 650 mg PO Q6H PRN PRN Reason: Fever >100.4 F Albuterol/Ipratropium (Duoneb 3 Mg/0.5 Mg (3 Ml) Ud) 3 ml IH [id number] [facility] Last Admin: 05/22/17 19:37 Dose: 3 ml Albuterol/Ipratropium (Duoneb 3 Mg/0.5 Mg (3 Ml) Ud) 3 ml IH Q2H PRN PRN Reason: Shortness of Breath Enoxaparin Sodium (Lovenox) 30 mg SC DAILY [facility] PRN Reason: Protocol Ergocalciferol (Drisdol 50,000 Intl Units Cap) 1 cap PO FRI [facility] Ferrous Sulfate (Feosol) 324 mg PO DAILY [facility] Montelukast Sodium (Singulair) 10 mg PO HS [facility] Last Admin: 05/22/17 21:06 Dose: 10 mg Ondansetron HCl (Zofran Inj) 4 mg IVP Q4H PRN PRN Reason: Nausea/Vomiting Oxycodone HCl (Oxycodone Immediate Release Tab) 15 mg PO Q4 PRN PRN Reason: Pain, moderate (4-7) Oxycodone HCl (Oxycodone Immediate Release Tab) 30 mg PO Q6H PRN PRN Reason: Pain, severe (8-10) Last Admin: 05/22/17 20:26 Dose: 30 mg Pantoprazole Sodium (Protonix Ec Tab) 40 mg PO ACB [facility] Physical Exam - Constitutional Appears: Non-toxic, No Acute Distress - Head Exam Head Exam: NORMAL INSPECTION - ENT Exam ENT Exam: Mucous Membranes Moist - Neck Exam Neck exam: Negative for: Lymphadenopathy, Meningismus - Respiratory Exam Respiratory Exam: Decreased Breath Sounds Additional comments: right anterior chest wall port site clean, intact, no tenderness, no erythema, no discharge - Cardiovascular Exam Cardiovascular Exam: +S1, +S2 - GI/Abdominal Exam GI & Abdominal Exam: Soft. absent: Tenderness Additional comments: left sided colostomy in place Results - Vital Signs Recent Vital Signs: Last Vital Signs Temp 97.9 F 05/22/17 21:27 Pulse 68 05/22/17 21:27 Resp 17 05/22/17 21:27 BP 126/68 05/22/17 21:27 Pulse Ox 99 05/22/17 18:09 - Labs Result Diagrams: 05/23/17 07:00 05/23/17 07:00 Labs: Laboratory Results - last 24 hr 05/22/17 18:12 pO2 42 VBG pH 7.31 L VBG pCO2 52.0 VBG HCO3 26.2 VBG Total CO2 27.8 VBG O2 Sat (Calc) 74.3 H VBG Base Excess -0.8 L VBG Potassium 3.7 Sodium 143.0 Chloride 110.0 H Glucose 165 H Lactate 2.0 FiO2 21.0 Venous Blood Potassium 3.7 Assessment & Plan - Assessment and Plan (Free Text) Plan: Assessment R/O port-related bacteremia in this patient experiencing chills R/O acute bronchitis 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 coli in the urine, probably a urinay tract infection / cystitis S/P Grp. C Strep bacteremia Plan started patient on Vancomycin, doxycycline and Merrem pending blood cx; CXR does not reveal infiltrates will monitor clinically
[2017-05-23] MEDS: oxyCODONE 30 mg Immediate Release Tab PO PRN (23:37)
[2017-05-24] MEDS: Albuterol-Ipratrop 3 mg / 0.5 (3 ml) UD IH SCH ×4 (01:43→20:50)
--- NOTE | 2017-05-24 02:43 | CON ---
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 She had been on chemotherapy as outpatient, seen at Dr. Brooks's office the day with the having chills from the last few days with dry cough. No sputum production. No hemoptysis or emesis. No hematuria. No diarrhea reported. Has a outpatient procalcitonin was drawn which is 0.93, seen by infectious disease was started on broad-spectrum antibiotics, covering healthcare-associated organism. She also have a right port catheters. PAST MEDICAL HISTORY: Metastatic rectal carcinoma involving the lungs and liver, chronic obstructive lung disease, history of rectovaginal fistula status post colostomy. SOCIAL HISTORY: He stopped smoking at the time of diagnosis of cancer. Denies any alcohol use. ALLERGIES: PIPERACILLIN AND TAZOBACTAM. FAMILY HISTORY: No significant cardiopulmonary disease reported. MEDICATIONS: She is on doxycycline 100 mg twice a day, vitamin D 50,000 units weekly, DuoNeb q. 2 hour p.r.n. and q. 6 hour around the clock, ferrous sulfate 324 mg daily, Lovenox 30 mg daily meropenem 1 g IV q. 8 hour, oxycodone immediate release 50 mg q. 4 hour p.r.n., oxycodone 30 mg for severe pain q. 6 hour, Protonix 40 mg ACB, Singulair 10 mg at bedtime, Tessalon Pearls 100 mg three times a day, Tylenol p.r.n. basis, vancomycin 1 g IV q. 12 hour, Zofran p.r.n. basis. REVIEW OF SYSTEM: No headache. Has some rhinitis, cough, no significant shortness of breath. No chest pain. No nausea, no vomiting, no abdominal pain, no leg pain or leg swelling. PHYSICAL EXAMINATION: GENERAL: Lying in the bed, no acute distress. VITAL SIGNS: Temperature is 98, heart rate 69, respiratory rate is 18, blood pressure 113/72, pulse ox 100% room air. HEENT: Moist mucous membrane. No ulcer or thrush. NECK: Supple. No JVD. LUNGS: Has few scattered rhonchi, overall fair airflow. HEART: S1 and S2. ABDOMEN: Soft, nontender, no organomegaly. EXTREMITIES: No edema. NEUROLOGIC: Awake, awake and follows simple commands. LABORATORY DATA: Shows hemoglobin 12.1, hematocrit 36.2, WBC 4.0, platelet is 131. INR 1.14. PTT is 30. ABG showed pH 7.31, pCO2 is 52, O2 is 42. Sodium 141, potassium 3.8, chloride 110, bicarbonate 26, BUN 10, creatinine 0.5, glucose 83, calcium is 9.0, magnesium is 1.4, AST 27, ALT 48, alk phos is 96. Albumin is 3.3. Influenza A and B negative. Microbiology, blood cultures, two sets, so far there is no growth. Had echocardiogram done today which shows a right ventricle systolic pressure is 30. Left ventricle is normal size as surgical while thickened the left ventricular function is normal. Has some greater abnormal relaxation pattern. IMPRESSION AND PLAN: Chronic obstructive lung disease, rectal carcinoma with metastatic disease to liver, especially lung with bilateral lymphadenopathy and mediastinal adenopathy component of chronic obstructive lung disease, mild cardiac diastolic dysfunction, history of high procalcitonin, already started on broad-spectrum antibiotics. We will add Flonase once for each nostril twice a day, Singulair 10 mg at bedtime, may give Solu-Medrol 20 mg twice a day for 48 hour, gastric prophylaxis, DVT prophylaxis. Thank you and we will follow with you. Baldemar Mcmahon MD
[2017-05-24] MEDS: MethylPREDNISolone 40 mg Vial IVP SCH ×3 (02:51→21:27)
[2017-05-24] MEDS: Meropenem 1 GM in Dextrose 5% In Water 100 ML IVPB SCH ×3 (05:40→21:27)
[2017-05-24] MEDS: oxyCODONE 15 mg Immediate Release Tab PO PRN ×3 (07:02→23:31)
[2017-05-24 07:45] LABS: BASO # 0.01 K/mm3 (0.0-2.0); BASO % 0.3 % (0.0-3.0); EOS % 1.2 % (1.5-5.0); GRAN # 1.96 (1.4-6.5); GRAN % 58.9 % (50.0-68.0); HEMATOCRIT 37.5 % (36.0-48.0); LYMPH % 31.2 % (22.0-35.0); MEAN CELL VOLUME 98.4 fl (80.0-105.0); MEAN CORPUSCULAR HEMOGLOBIN 31.5 pg (25.0-35.0); MEAN PLATELET VOLUME 10.5 fl (7.0-11.0); MONO # 0.3 (0.1-0.6); MONO % 8.4 % (1.0-6.0); RED CELL DISTRIBUTION WIDTH 16.3 % (11.5-14.5); WHITE BLOOD COUNT 3.3 10^3/ul (4.5-11.0)
[2017-05-24 08:02] LABS: ALB/GLOB RATIO 1.3 (1.1-1.8); ALKALINE PHOSPHATASE 88 U/L (38-126); ALT/SGPT 64 U/L (7-56); AST/SGOT 55 U/L (14-36); BILIRUBIN,TOTAL 0.5 mg/dL (0.2-1.3); BLOOD UREA NITROGEN 10 mg/dL (7-21); CALCIUM 8.8 mg/dL (8.4-10.5); CARBON DIOXIDE 29 mmol/L (21-33); CHLORIDE 106 mmol/L (98-107); GFR AFRICAN-AMERICAN > 60; GLUCOSE,RANDOM 82 mg/dL (70-110); POTASSIUM 3.3 mmol/L (3.6-5.0); SODIUM 140 mmol/L (132-148); TOTAL PROTEIN 5.8 g/dL (5.8-8.3)
[2017-05-24] MEDS: Fluticasone Nasal 50 mcg/Spray NS SCH ×2 (09:00→18:12)
[2017-05-24] MEDS: Enoxaparin 30 mg Syringe SC SCH (09:51)
[2017-05-24] MEDS: Pantoprazole 40 mg EC Tab PO SCH (09:51)
[2017-05-24] MEDS: Vancomycin 1gm in NS 250ml 1 GM/250 ML BAG IVPB SCH ×2 (10:54→21:35)
[2017-05-24] MEDS: Magnesium Oxide 400 mg Tab UD PO SCH (18:11)
[2017-05-24] MEDS: oxyCODONE 30 mg Immediate Release Tab PO PRN (18:15)
--- NOTE | 2017-05-24 18:47 | PN ---
DATE: 05/24/2017 SUBJECTIVE: The patient is seen earlier this morning in room 574, bed 1. She was awake and alert. No fever. No chills. PHYSICAL EXAMINATION: VITAL SIGNS: Temperature of 98.7, respiratory rate of 20, heart rate of 77, blood pressure is 100/62. HEENT: Unremarkable. NECK: Supple. LUNGS: Decreased breath sounds. HEART: Normal S1 and S2. ABDOMEN: Soft and nontender. LABORATORY DATA: Examination reveals a white count of 3.3, hemoglobin of 12, platelets of 134. Coagulation is noted. Chemistries reveals a BUN of 10 and creatinine of 0.6. Serology for influenza is negative. The patient had an HIV test in 11/2015, which was negative. MEDICATIONS: Review of our current orders reveals the patient to be on meropenem and vancomycin. ASSESSMENT AND PLAN: This is a 57-year-old female, seen early this morning in room 574, bed 1, rule out port-related bacteremia in a patient having chills versus bronchitis in the patient with metastatic rectal cancer, rectal vaginal fistula, status post loop colostomy and chemotherapy, history of Group C streptococcal bacteremia, currently on vancomycin and meropenem, and thus far the blood cultures have been negative at 48 hours. We will check on the final culture results. The patient is also on doxycycline in addition to vancomycin and meropenem. Parth Diamond MD
--- NOTE | 2017-05-24 23:45 | PN ---
PULMONARY PROGRESS NOTE DATE: 05/24/2017 REFERRING PHYSICIAN: Dr. Brooks. SUBJECTIVE: She is lying in the bed, feels much better compared to yesterday. Decreased shortness of breath. No chest pain. No nausea. No vomiting, diarrhea, leg pain or leg swelling. OBJECTIVE: GENERAL: In no acute distress. VITAL SIGNS: Temperature is 98, heart rate is 77, respiratory rate is 18, blood pressure is 100/62, and pulse ox is 98% on room air. HEENT: Moist mucous membranes. No ulcer or thrush. NECK: Supple. No JVD. LUNGS: Has a few scattered rhonchi. HEART: S1 and S2. ABDOMEN: Soft and nontender. No organomegaly. EXTREMITIES: No edema. NEUROLOGIC: Awake, alert, and follow simple commands. MEDICATIONS: She is on doxycycline 100 mg twice a day, vitamin D 50,000 units weekly, DuoNeb q.12 hours p.r.n., DuoNeb 6 hours [id number], ferrous sulfate 325 mg daily, Flonase 1 spray each nostril twice a day, Lovenox 30 mg subcutaneously daily, magnesium oxide 400 mg twice a day, meropenem 1 g IV q.8 hours, oxycodone immediate release 50 mg q.4 hours p.r.n. and oxycodone immediate release 30 mg q.6 hours p.r.n. for severe pain, potassium supplement, Protonix 40 mg daily, Singulair 10 mg daily, Solu-Medrol 20 mg twice a day, Tessalon Perles 100 mg 3 times a day, Tylenol p.r.n., vancomycin 1 g IV q.12 hours, and Zofran p.r.n. basis. LABORATORY DATA: Shows hemoglobin 12.0, hematocrit 37.5, WBC 3.3, and platelet count is 134. Sodium 140, potassium 3.3, chloride 106, bicarbonate 29, BUN is 10, creatinine is 0.6, glucose 82, and calcium is 8.8. AST 55, ALT 64, alkaline phosphatase is 88, and albumin is 3.3. Microbiology; blood culture and urine culture so far there is no growth. Had echocardiogram done yesterday, which shows right ventricular systolic pressure is 30, left ventricle is normal in size, and left ventricular wall thickening is normal with some mild diastolic dysfunction. IMPRESSION AND PLAN: Chronic obstructive lung disease, rectal carcinoma with the metastatic disease to the liver especially lung with bilateral nodules, mediastinal adenopathy, cardiac diastolic dysfunction, has high procalcitonin, being treated as a pneumonia and chronic obstructive pulmonary disease exacerbation. Case discussed with Dr. Brooks in detail. Continue antibiotics, covering healthcare-associated organism. Continue steroids, inhaled bronchodilator, gastric prophylaxis, deep venous thrombosis prophylaxis, out of bed to chair, and continue therapy. Thank you and we will follow with you. Baldemar Mcmahon MD
--- NOTE | 2017-05-25 00:13 | CP.PCM.PN ---
Subjective - Date & Time of Evaluation Date of Evaluation: 05/24/17 Time of Evaluation: 18:15 - Subjective Subjective: Feeling better abdominal discomfort is less tolerating the diet Objective - Vital Signs/Intake and Output Vital Signs (last 24 hours): Temp Pulse Resp BP Pulse Ox 98.7 F 77 20 100/62 98 05/24/17 16:25 05/24/17 16:25 05/24/17 16:25 05/24/17 16:25 05/24/17 16:25 Intake and Output: 05/24/17 05/25/17 18:59 06:59 Intake Total 1020 Balance 1020 - Medications Medications: Current Medications Acetaminophen (Tylenol 325mg Tab) 650 mg PO Q6H PRN PRN Reason: Fever >100.4 F Albuterol/Ipratropium (Duoneb 3 Mg/0.5 Mg (3 Ml) Ud) 3 ml IH [id number] [facility] Last Admin: 05/24/17 20:50 Dose: 3 ml Albuterol/Ipratropium (Duoneb 3 Mg/0.5 Mg (3 Ml) Ud) 3 ml IH Q2H PRN PRN Reason: Shortness of Breath Benzonatate (Tessalon Perles) 100 mg PO TID [facility] Last Admin: 05/24/17 18:11 Dose: 100 mg Doxycycline Hyclate (Doryx) 100 mg PO Q12 [facility] PRN Reason: Protocol Last Admin: 05/24/17 21:27 Dose: 100 mg Enoxaparin Sodium (Lovenox) 30 mg SC DAILY [facility] PRN Reason: Protocol Last Admin: 05/24/17 09:51 Dose: 30 mg Ergocalciferol (Drisdol 50,000 Intl Units Cap) 1 cap PO FRI [facility] Last Admin: 05/23/17 10:19 Dose: 1 cap Ferrous Sulfate (Feosol) 324 mg PO DAILY [facility] Last Admin: 05/24/17 09:51 Dose: 324 mg Fluticasone Propionate (Flonase) 1 actuation NS BID [facility] Last Admin: 05/24/17 18:12 Dose: Not Given Meropenem 1 gm/ Dextrose 100 mls @ 100 mls/hr IVPB Q8 [facility] PRN Reason: Protocol Stop: 05/29/17 23:16 Last Admin: 05/24/17 21:27 Dose: 100 mls/hr Vancomycin HCl (Vancomycin 1gm) 1 gm in 250 mls @ 167 mls/hr IVPB Q12H [facility] PRN Reason: Protocol Last Admin: 05/24/17 21:35 Dose: 167 mls/hr Potassium Chloride 20 meq/ (Sodium Chloride) 1,010 mls @ 60 mls/hr IV .[id number] [facility] Last Admin: 05/24/17 18:11 Dose: 60 mls/hr Magnesium Oxide (Mag-Ox) 400 mg PO BID [facility] Last Admin: 05/24/17 18:11 Dose: 400 mg Methylprednisolone (Solu-Medrol) 20 mg IVP Q12 [facility] Last Admin: 05/24/17 21:27 Dose: 20 mg Montelukast Sodium (Singulair) 10 mg PO HS [facility] Last Admin: 05/24/17 21:27 Dose: 10 mg Ondansetron HCl (Zofran Inj) 4 mg IVP Q4H PRN PRN Reason: Nausea/Vomiting Oxycodone HCl (Oxycodone Immediate Release Tab) 15 mg PO Q4 PRN PRN Reason: Pain, moderate (4-7) Last Admin: 05/24/17 23:31 Dose: 15 mg Oxycodone HCl (Oxycodone Immediate Release Tab) 30 mg PO Q6H PRN PRN Reason: Pain, severe (8-10) Last Admin: 05/24/17 18:15 Dose: 30 mg Pantoprazole Sodium (Protonix Ec Tab) 40 mg PO ACB [facility] Last Admin: 05/24/17 09:51 Dose: 40 mg - Labs Labs: 05/24/17 07:00 05/24/17 07:00 PT 12.5 SECONDS (9.4-12.5) 05/22/17 14:15 INR 1.14 (0.93-1.08) H 05/22/17 14:15 APTT 29.5 Seconds (25.1-36.5) 05/22/17 14:15 - Head Exam Head Exam: ATRAUMATIC, NORMOCEPHALIC - Eye Exam Eye Exam: EOMI, PERRL - ENT Exam ENT Exam: Mucous Membranes Moist - Neck Exam Neck Exam: Full ROM, Normal Inspection - Respiratory Exam Respiratory Exam: Rhonchi. absent: Respiratory Distress Additional comments: Bilateral air entry present few scattered rhonchi present - GI/Abdominal Exam GI & Abdominal Exam: Soft. absent: Tenderness Additional comments: Colostomy present. air and in stool in colostomy bag - Neurological Exam Neurological Exam: Alert, Awake, Oriented x3 Assessment and Plan - Assessment and Plan (Free Text) Assessment: This 57-year-old patient was admitted with the chills some shortness of breath. Patient has metastatic to lung cancer stage IV PA[employer] LINING metastatic to the lung. Patient did have some abdominal discomfort which improved. C air in the colostomy bag noticed with the stool functioning better. We'll be due for ordering a CAT scan at the present time will closely monitor the patient. Patient has a poor dentition patient is advised to chew the food well and eat Thank you very much for allowing us to precipitate the care of the patient
[2017-05-25] MEDS: Albuterol-Ipratrop 3 mg / 0.5 (3 ml) UD IH SCH ×4 (01:15→19:40)
[2017-05-25] MEDS: Meropenem 1 GM in Dextrose 5% In Water 100 ML IVPB SCH ×3 (06:15→21:47)
[2017-05-25] MEDS: oxyCODONE 15 mg Immediate Release Tab PO PRN ×3 (08:42→19:39)
[2017-05-25] MEDS: Pantoprazole 40 mg EC Tab PO SCH (08:42)
[2017-05-25] MEDS: Magnesium Oxide 400 mg Tab UD PO SCH ×2 (09:26→17:09)
[2017-05-25 09:27] LABS: GRAN % 73.9 % (50.0-68.0); LYMPH # 0.6 (1.2-3.4); MEAN CELL VOLUME 97.6 fl (80.0-105.0); MEAN CORPUSCULAR HEMOGLOBIN 32.2 pg (25.0-35.0); MEAN CORPUSCULAR HGB CONC 33.1 g/dl (31.0-37.0); MEAN PLATELET VOLUME 9.8 fl (7.0-11.0); MONO # 0.5 (0.1-0.6); MONO % 11.1 % (1.0-6.0); RED CELL DISTRIBUTION WIDTH 15.6 % (11.5-14.5); WHITE BLOOD COUNT 4.1 10^3/ul (4.5-11.0)
[2017-05-25] MEDS: Enoxaparin 30 mg Syringe SC SCH (09:27)
[2017-05-25] MEDS: Fluticasone Nasal 50 mcg/Spray NS SCH ×2 (09:27→17:09)
[2017-05-25] MEDS: MethylPREDNISolone 40 mg Vial IVP SCH ×2 (09:30→21:46)
[2017-05-25] MEDS: Vancomycin 1gm in NS 250ml 1 GM/250 ML BAG IVPB SCH ×2 (09:36→21:47)
[2017-05-25 09:41] LABS: ALB/GLOB RATIO 1.3 (1.1-1.8); ALKALINE PHOSPHATASE 87 U/L (38-126); ALT/SGPT 42 U/L (7-56); AST/SGOT 25 U/L (14-36); BILIRUBIN,TOTAL 0.4 mg/dL (0.2-1.3); BLOOD UREA NITROGEN 12 mg/dL (7-21); CALCIUM 9.2 mg/dL (8.4-10.5); CARBON DIOXIDE 25 mmol/L (21-33); CHLORIDE 109 mmol/L (98-107); GFR AFRICAN-AMERICAN > 60; GLUCOSE,RANDOM 117 mg/dL (70-110); POTASSIUM 3.8 mmol/L (3.6-5.0); SODIUM 139 mmol/L (132-148); TOTAL PROTEIN 5.7 g/dL (5.8-8.3)
--- NOTE | 2017-05-25 14:20 | PN ---
DATE: 05/25/2017 SUBJECTIVE: The patient is in bed, in no acute distress, nontoxic on exam. PHYSICAL EXAMINATION: VITAL SIGNS: Temperature is 98, blood pressure is 106/60, respiratory rate of 18. HEENT: Examination of HEENT is unremarkable. NECK: Supple. LUNGS: Have decreased breath sounds. HEART: Normal S1, S2. ABDOMEN: Soft and nontender. LABORATORY DATA: Reveals the blood cultures no growth, urine cultures no growth and white count is 4.1, hemoglobin of 11, platelets of 114. BUN of 12, creatinine of 0.5. Influenza is negative. ASSESSMENT AND PLAN: Is a 57-year-old female seen earlier this morning having chills in home with patient with metastatic rectal cancer, rectovaginal fistula, status post loop colostomy and chemotherapy, history of group C strep bacteremia. Thus far, the blood cultures have been negative. The patient does have bronchitis, currently on meropenem and vancomycin. We will follow closely with you. Parth Diamond MD
[2017-05-25 17:17] VITALS: TEMP 97.8; O2SAT 100
--- NOTE | 2017-05-25 21:29 | PN ---
DATE: 05/23/2017 LOCATION: The patient is in room 574. bed 1. SUBJECTIVE: This is a 57-year-old female with metastatic carcinoma of the rectum to the lung and to the liver. Recently had lung biopsy, had recent PET-CT scan one month ago, which suggested progressive disease involving the liver, mediastinal area, bilateral lung nodules. She has been started on chemotherapy for the progressive disease along with . The patient has been on drug called Camptosar. While she was in the office prior to this admission, a day before this admission, the patient was noted to be having chills for the last few days along with dry cough. No sputum production. No hemoptysis or hematemesis. No hematuria. No diarrhea in view of that. The patient had blood cultures drawn and procalcitonin drawn, which was 0.93, the next day. The patient was advised admission as her chills continued, even though white count was normal. Since the procalcitonin was elevated, our concern was she could have culture-negative endocarditis or something else improving in the lungs that was manifesting in this form. In view of the fact that the patient has long-term Port-A-Cath, [id number]-related infections also entertained at this time. PAST MEDICAL HISTORY: Significant for carcinoma of the rectum, metastatic disease to the lung and the liver, chronic obstructive pulmonary disease, history of smoking, history of rectovaginal fistula status post colostomy and has improved tremendously. ALLERGIES: THE PATIENT IS ALLERGIC TO PIPERACILLIN AND TAZOBACTAM. FAMILY HISTORY: Significant for cardiopulmonary disease. MEDICATIONS: The patient's medications are noted. She is on doxycycline 100 b.i.d., vitamin D 50,000 units weekly, DuoNeb q. 2 hours p.r.n. q. 6 hours, ferrous sulfate 324 mg daily, Lovenox 30 mg subcutaneous daily, meropenem 1 g IV q. 8 hours, oxycodone 50 mg q. 4 hours p.r.n., oxycodone 30 mg p.o. for severe pain, Protonix 40 mg IV daily, Singulair 10 mg at bedtime, Tessalon Perles 100 mg 3 times a day, Tylenol p.r.n., vancomycin 1 g IV q. 12 hours along with Zofran p.r.n. REVIEW OF SYSTEMS: The patient denies any headache, rhinitis. The patient still bringing productive phlegm and the phlegm is green in color. Denies any shortness of breath and overall feels better. Since coming to the hospital, getting IV antibiotics. PHYSICAL EXAMINATION: GENERAL: The patient was examined, sitting out of bed in the chair. VITAL SIGNS: Stable. T-max is 98.4, heart rate is 69, respirations 18, blood pressure is 113/72, pulse ox is 100% on room air. HEENT: Head in normocephalic, atraumatic. Conjunctivae pale. Sclerae are anicteric. Pupils are equally reactive to light and accommodation. Examination of the oropharynx reveals no oropharyngeal lesions. Tongue is moist. No ulcerations are noted. NECK: Supple. There is no adenopathy. LUNGS: Reveal scattered wheezes with overall fair overflow. HEART: Reveals PMI with fifth intercostal space inside the midclavicular line. S1 and S2 are normal. No gallop or murmur is heard. ABDOMEN: Soft, nontender. Bowel sounds are present. Liver and spleen are not palpable. No evidence of rebound, rigidity or guarding. EXTREMITIES: Reveal no cyanosis, clubbing or edema. NEUROLOGIC: Higher functions are normal. No focal deficits are noted. LABORATORY DATA: Reveals a hemoglobin of 12, hematocrit 36, white count of 4, platelet count 131,000. Normal PT/INR. ABG showed a pH of 7.31, pCO2 of 52, O2 of 42. Sodium is 141, potassium is 3.8, chloride 110, bicarbonate 28, BUN of 10, creatinine 0.5, glucose 81, calcium 9, magnesium is 1.4. Blood cultures so far have not shown any growth. Had an echocardiogram done, which does not show any increase in right systolic ventricular pressure, valves appear to show no evidence of vegetations. Left ventricular function is normal. ASSESSMENT NOTES AND PLAN: The patient is stage IV metastatic colorectal carcinoma, admitted for fevers and chills with probably underlying infection. Metastatic cancer cannot be ruled out as a cause, especially with lung metastasis and bilateral lymphadenopathy. We will continue the current medications for now. Flonase has been added along with Singulair and Solu-Medrol twice a day. Gastric prophylaxis is also be noted. We will follow the patient, make appropriate recommendations and treatment plans. We will check with ID as well as far as the duration of antibiotic therapy is concerned. Esperanza Brooks MD
--- NOTE | 2017-05-25 21:55 | PN ---
DATE: 05/24/2017 LOCATION: The patient is currently in room 574, bed 1. SUBJECTIVE: The patient is lying in bed. Feels much better compared to yesterday. Decreased shortness of breath. No chest pain. No nausea or vomiting. Still bringing up yellowish phlegm on coughing. No nausea or vomiting. No leg pain. No leg swelling. Appetite is good. PHYSICAL EXAMINATION: GENERAL: The patient is in no acute distress. VITAL SIGNS: Stable. T-Max is 98.4, heart rate is 77, respirations 18, blood pressure is 100/62, pulse oximetry is 98% on room air. HEENT: Head is normocephalic and atraumatic. Conjunctivae are pale. Sclerae are anicteric. Pupils are equally reactive to light and accommodation. Examination of the oropharynx reveals no oropharyngeal lesions. NECK: Supple. There is no adenopathy. LUNGS: Reveals scattered rhonchi bilaterally, right side posteriorly greater than the left. HEART: Reveals PMI in the fifth intercostal space inside the midclavicular line. S1 and S2 are normal. No gallop or murmur is heard. ABDOMEN: Soft, nontender. The patient has a colostomy in left lower quadrant, functioning. No rebound, rigidity or guarding is noted. Liver and spleen not palpable. EXTREMITIES: Reveal no cyanosis, clubbing or edema. NEUROLOGIC: Higher functions are normal. No focal deficits are noted. MEDICATIONS: The patient's medications were reviewed. She is on doxycycline 100 twice a day, vitamin D 50,000 units once daily, DuoNeb q. 12 hours p.r.n., DuoNeb q. 6 hours around the clock, ferrous sulfate 325 mg daily, Flonase 1 spray each nostril twice a day, Lovenox 30 mg subcutaneous daily, magnesium oxide 400 mg twice a day, meropenem 1 g IV q. 8 hours, oxycodone immediate release 30 mg p.o. q. 4 hours p.r.n., oxycodone 30 mg q. 6 hours for severe pain, potassium supplements. Protonix 40 mg daily, Singulair 10 mg daily, Solu-Medrol 20 mg twice a day, Tessalon Perles, Tylenol p.r.n., vancomycin 1 g IV q. 12 hours, and Zofran p.r.n. LABORATORY DATA: Reveals hemoglobin of 12, hematocrit of 37.5, white count of 3.3, platelet count of 134, 000. Electrolytes are unremarkable. BUN is 10. Creatinine is 0.6. Calcium is 8.8. AST and ALT are grossly unremarkable. Slight elevation of ALT. Albumin is 3.3. Blood cultures are negative so far. Potassium is slightly borderline at 3.3. Echocardiogram done yesterday showed right ventricular systolic pressure of 30. Left ventricular is normal in size. Left ventricular wall is thickened with some diastolic dysfunction. ASSESSMENT, NOTES AND PLAN: The patient has chronic obstructive pulmonary disease with stage IV rectal carcinoma with documented lung metastasis and liver metastasis, admitted with severe chills. Cultures today are negative. The patient is on broad-spectrum antibiotics. We will cover for gram-negative endocarditis. Clinically at least treat her for 5 days, if the cultures remain persistently negative. Spoke to ID who concurred with our treatment plan at this point in time for covering the patient with healthcare-associated organisms. It is possible the patient could have had a significant upper respiratory tract infection with a history of prior smoking. Continue thrombosis prophylaxis for now and continue the current antibiotics for a total of 5 to 7 days. Routine post-exam instructions have been given to the patient. Esperanza Brooks MD
[2017-05-25] MEDS: oxyCODONE 30 mg Immediate Release Tab PO PRN (23:50)
[2017-05-26] MEDS: Albuterol-Ipratrop 3 mg / 0.5 (3 ml) UD IH SCH ×3 (01:34→13:26)
--- NOTE | 2017-05-26 02:22 | PN ---
PULMONARY PROGRESS NOTE DATE: 05/25/2017 REFERRING PHYSICIAN: Carter Alvarez MD SUBJECTIVE: The patient is lying in the bed, head at 45 degrees. She feels better. Has some cough and shortness of breath. No nausea. No vomiting. No diarrhea. No leg pain or leg swelling. OBJECTIVE: GENERAL: In no acute distress. VITAL SIGNS: Temperature is 98, heart rate is 77, respiratory rate is 20, blood pressure is 121/88, and pulse ox is 100% on room air. HEENT: Moist mucous membrane. Crowded airway. NECK: Supple. No JVD. LUNGS: Has a few scattered rhonchi on the right lung. HEART: S1 and S2. ABDOMEN: Soft and nontender. No organomegaly. EXTREMITIES: No edema. NEUROLOGICAL: Awake and alert. Follows simple commands. MEDICATIONS: She is on doxycycline 100 mg twice a day, vitamin D 50,000 units weekly, DuoNeb q.2 hours p.r.n. and q.6 hours [id number], ferrous sulfate 325 mg daily, Flonase 1 spray each nostril twice a day, Lovenox 30 mg daily, magnesium oxide 400 mg twice a day, meropenem 1 g q.8 hours, oxycodone immediate release 50 mg q.4 hours p.r.n. and oxycodone immediate release 30 mg q.6 hours for severe pain, potassium 60 mL/hour, Protonix 40 mg daily, Singulair 10 mg daily, Solu-Medrol 20 mg q.12 hours, Tessalon Perles 100 mg 3 times a day, Tylenol p.r.n. basis, vancomycin 1 g daily, and Zofran p.r.n. basis. LABORATORY DATA: Shows hemoglobin 11.9, hematocrit 36.0, WBC 4.1, and platelet count is 114. Sodium 139, potassium 3.8, chloride 109, bicarbonate 25, BUN is 12, creatinine is 0.5, glucose 117, and calcium is 9.2. AST 25, ALT 42, alkaline phosphatase is 87, and albumin is 3.2. IMPRESSION AND PLAN: Chronic obstructive lung disease, rectal carcinoma with metastatic disease to the liver and extensive metastasis to the lungs, also mediastinal adenopathy, cardiac diastolic dysfunction, has a high procalcitonin probably pneumonia. Continue antibiotics. Keep head at 45 degrees. IV and inhaled bronchodilators. Gastric prophylaxis, deep venous thrombosis prophylaxis, and out of bed to chair. Thank you and we will follow with you. Baldemar Mcmahon MD
--- NOTE | 2017-05-26 05:32 | PN ---
DATE: 05/25/2017 SUBJECTIVE: This patient was seen and evaluated today. The patient is feeling better and able to tolerate the diet, colostomy is working, and abdominal discomfort is significantly less. PHYSICAL EXAMINATION: VITAL SIGNS: Temperature is 97.8, blood pressure 121/88, pulse 77, respirations 18, O2 saturations 100% HEENT: Atraumatic. Anicteric. NECK: Supple. HEART: S1 and S2 heard. LUNGS: Bilateral air entry present. There are few scattered rhonchi present. ABDOMEN: Soft, there is no mass palpable. There was colostomy bag present. There was air in the colostomy bag. EXTREMITIES: No cyanosis. No clubbing. LABORATORY DATA: Hemoglobin 11.9, hematocrit 36, WBC 4.1, platelets 114. Chemistry is essentially unremarkable. IMPRESSION: This is a 57-year-old patient with metastatic rectal carcinoma, lung metastases. Admitted with chills, being treated with intravenous antibiotics for possible pneumonia. The patient had some abdominal discomfort which clinically improved. Continue the antibiotics as per Infectious Diseases. If the patient has any further episodes of abdominal discomfort, we will consider CT of the abdomen. At the present time, we will clinically follow the patient. Alfredo David MD
[2017-05-26] MEDS: Meropenem 1 GM in Dextrose 5% In Water 100 ML IVPB SCH (06:23)
[2017-05-26] MEDS: oxyCODONE 15 mg Immediate Release Tab PO PRN ×2 (06:49→12:32)
[2017-05-26] MEDS: Enoxaparin 30 mg Syringe SC SCH (09:14)
[2017-05-26] MEDS: MethylPREDNISolone 40 mg Vial IVP SCH (09:15)
[2017-05-26] MEDS: Magnesium Oxide 400 mg Tab UD PO SCH (09:15)
[2017-05-26] MEDS: Pantoprazole 40 mg EC Tab PO SCH (09:15)
[2017-05-26] MEDS: Fluticasone Nasal 50 mcg/Spray NS SCH (09:16)
[2017-05-26 10:29] VITALS: BP 98/66; PULSE 70; RESP 16
--- NOTE | 2017-05-26 18:23 | CP.PCM.PN ---
Subjective - Date & Time of Evaluation Date of Evaluation: 05/26/17 Time of Evaluation: 12:25 - Subjective Subjective: Patient is comfortable, no fevers, not in distress, no chills, no abdominal pain , no nausea, no diarrhea, cough is improved. Objective - Vital Signs/Intake and Output Vital Signs (last 24 hours): Temp Pulse Resp BP Pulse Ox 97.8 F 70 16 98/66 L 100 05/26/17 06:00 05/26/17 06:00 05/26/17 06:00 05/26/17 06:00 05/25/17 16:00 Intake and Output: 05/26/17 05/26/17 06:59 18:59 Intake Total 180 480 Balance 180 480 - Medications Medications: Current Medications Acetaminophen (Tylenol 325mg Tab) 650 mg PO Q6H PRN PRN Reason: Fever >100.4 F Albuterol/Ipratropium (Duoneb 3 Mg/0.5 Mg (3 Ml) Ud) 3 ml IH [id number] [facility] Last Admin: 05/26/17 07:17 Dose: 3 ml Albuterol/Ipratropium (Duoneb 3 Mg/0.5 Mg (3 Ml) Ud) 3 ml IH Q2H PRN PRN Reason: Shortness of Breath Benzonatate (Tessalon Perles) 100 mg PO TID [facility] Last Admin: 05/26/17 09:15 Dose: 100 mg Doxycycline Hyclate (Doryx) 100 mg PO Q12 [facility] PRN Reason: Protocol Last Admin: 05/26/17 09:15 Dose: 100 mg Enoxaparin Sodium (Lovenox) 30 mg SC DAILY [facility] PRN Reason: Protocol Last Admin: 05/26/17 09:14 Dose: 30 mg Ergocalciferol (Drisdol 50,000 Intl Units Cap) 1 cap PO FRI [facility] Last Admin: 05/23/17 10:19 Dose: 1 cap Ferrous Sulfate (Feosol) 324 mg PO DAILY [facility] Last Admin: 05/26/17 09:16 Dose: Not Given Fluticasone Propionate (Flonase) 1 actuation NS BID [facility] Last Admin: 05/26/17 09:16 Dose: Not Given Meropenem 1 gm/ Dextrose 100 mls @ 100 mls/hr IVPB Q8 [facility] PRN Reason: Protocol Stop: 05/29/17 23:16 Last Admin: 05/26/17 06:23 Dose: 100 mls/hr Vancomycin HCl (Vancomycin 1gm) 1 gm in 250 mls @ 167 mls/hr IVPB Q12H [facility] PRN Reason: Protocol Last Admin: 05/25/17 21:47 Dose: 167 mls/hr Potassium Chloride 20 meq/ (Sodium Chloride) 1,010 mls @ 60 mls/hr IV .[id number] [facility] Last Admin: 05/26/17 06:23 Dose: 60 mls/hr Magnesium Oxide (Mag-Ox) 400 mg PO BID [facility] Last Admin: 05/26/17 09:15 Dose: 400 mg Methylprednisolone (Solu-Medrol) 20 mg IVP Q12 [facility] Last Admin: 05/26/17 09:15 Dose: 20 mg Montelukast Sodium (Singulair) 10 mg PO HS [facility] Last Admin: 05/25/17 21:46 Dose: 10 mg Ondansetron HCl (Zofran Inj) 4 mg IVP Q4H PRN PRN Reason: Nausea/Vomiting Oxycodone HCl (Oxycodone Immediate Release Tab) 15 mg PO Q4 PRN PRN Reason: Pain, moderate (4-7) Last Admin: 05/26/17 06:49 Dose: 15 mg Oxycodone HCl (Oxycodone Immediate Release Tab) 30 mg PO Q6H PRN PRN Reason: Pain, severe (8-10) Last Admin: 05/25/17 23:50 Dose: 30 mg Pantoprazole Sodium (Protonix Ec Tab) 40 mg PO ACB [facility] Last Admin: 05/26/17 09:15 Dose: 40 mg - Labs Labs: 05/25/17 09:20 05/25/17 09:20 PT 12.5 SECONDS (9.4-12.5) 05/22/17 14:15 INR 1.14 (0.93-1.08) H 05/22/17 14:15 APTT 29.5 Seconds (25.1-36.5) 05/22/17 14:15 - Constitutional Appears: Non-toxic - Head Exam Head Exam: NORMAL INSPECTION - ENT Exam ENT Exam: Mucous Membranes Moist - Neck Exam Neck Exam: absent: Meningismus - Respiratory Exam Respiratory Exam: Decreased Breath Sounds Additional comments: right anterior chest wall port-a-cath in place - Cardiovascular Exam Cardiovascular Exam: +S1, +S2 - GI/Abdominal Exam GI & Abdominal Exam: Soft. absent: Tenderness Assessment and Plan - Assessment and Plan (Free Text) Plan: Assessment probable acute bronchitis 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 coli in the urine, probably a urinay tract infection / cystitis S/P Grp. C Strep bacteremia Plan cultures have been negative - patient can be switched to PO levaquin to complete 3-5 days
--- NOTE | 2017-05-27 08:55 | DS ---
LOCATION: Patient is currently in room 574, bed 1. HOSPITAL COURSE: Patient is being transferred from the acute side to transitional care so she can complete her IV steroids while she is being switched over to oral antibiotics. Patient needs to be watched for another 2 days as far as the respiratory status is concerned before the patient is able to be functioning on her own in a home situation. Subjectively, patient is examined, sitting in bed. She is feeling much better compared to her admission. Decreased shortness of breath. No chest pain, no nausea, no vomiting. Still bringing up yellowish to greenish phlegm on coughing. Denies any history of nausea or vomiting. No leg pain. No leg swelling. No more chills. Appetite is good. PHYSICAL EXAMINATION: GENERAL: Patient is in no acute distress. VITAL SIGNS: Stable. T-max is 98.4, heart rate is 77, respirations 18, blood pressure is 100/62, pulse oximetry reveals pulse ox of 98% on room air. HEENT: Head is normocephalic and atraumatic. Conjunctivae pale. Sclerae are anicteric. Pupils are equally reactive to light and accommodation. Evaluation of the oropharynx reveals no oropharyngeal lesions. Tongue is moist. No ulcerations are noted. Patient has very bad dentition. NECK: Supple. There is no adenopathy. No jugular venous distention noted. LUNGS: Reveal bilateral rhonchi, right greater than the left, though much improved compared to the day of her admission. HEART: Reveals PMI to be in the fifth intercostal space inside the midclavicular line. S1 and S2 are normal. No gallop or murmur is heard. ABDOMEN: Soft and nontender. Patient has a colostomy in the left lower quadrant, which is functioning. There is no rebound, rigidity or guarding noted. Liver and spleen are not palpable. No other masses are felt. EXTREMITIES: Revealed no cyanosis, clubbing, or edema. NEUROLOGIC: Reveals her higher functions to be normal. No focal deficits are noted. GENITOURINARY/RECTAL: Deferred. Patient is status post AP resection. LYMPHATICS: There is no evidence of adenopathy in the neck, axilla, or groin. MEDICATIONS: Patient's medications were reviewed. She is on doxycycline 100 twice a day, vitamin D 50,000 once a day, DuoNeb q.12 hours, DuoNeb q.6 hours round the clock, ferrous sulfate 325 mg daily, Flonase 1 spray to each nostril twice a day, Lovenox 30 mg subcu daily, magnesium oxide 400 mg twice a day, meropenem 1 g IV q.8 hours, immediate oxycodone release 30 mg q.4h p.r.n, oxycodone 30 mg q.6 hours p.r.n., potassium supplements, Protonix 40 mg p.o. daily, Singulair 10 mg daily, Solu-Medrol 20 mg IV daily, Tessalon Perles, Tylenol p.r.n., vancomycin 1 g IV q.12 hours, and Zofran p.r.n. DISCHARGE PLAN: Patient is going to be transferred over to TCU for deconditioning. Continue her IV steroid. DISCHARGE DIAGNOSES: Acute tracheobronchitis with a touch of evidence of air-space infection in the lungs and a background history of having chronic obstructive pulmonary disease secondary to smoking. Patient has metastatic stage IV colorectal carcinoma with documented metastasis in the lung and documented metastasis in the liver, best seen in the PET-CT scan. Currently, on chemotherapy with Vectibix and Camptosar, in the hospital though for the chills and what appears to be now source of infection being in the lungs than anywhere else. Patient is going to be transferred to the transitional care unit for further management, specifically deconditioning. We are going to keep her on p.o. antibiotics while keeping her in the transitional care unit, giving her IV steroids, which will be tapered over the next 2 days. Time spent with the patient greater than 45 minutes. Esperanza Brooks MD
[2017-05-27] MEDS ORDERED: levoFLOXacin 750 MG TAB PO SCH (10:00)
== END 2017-05-26 15:28 | DRG 190 ==
LOC: ED 13:21 → ERH 17:02 → 5RSO 18:40
PROVIDERS: ADMIT Family Medicine; ATTEND Family Medicine
DX: J44.0 Chronic obstructive pulmonary disease with (acute) lower respiratory infection (principal); J18.9 Pneumonia, unspecified organism; C78.00 Secondary malignant neoplasm of unspecified lung; C78.7 Secondary malignant neoplasm of liver and intrahepatic bile duct; R78.81 Bacteremia; C19 Malignant neoplasm of rectosigmoid junction; N82.3 Fistula of vagina to large intestine; B95.5 Unspecified streptococcus as the cause of diseases classified elsewhere; J20.9 Acute bronchitis, unspecified; J44.1 Chronic obstructive pulmonary disease with (acute) exacerbation; J06.9 Acute upper respiratory infection, unspecified; F17.200 Nicotine dependence, unspecified, uncomplicated; Z85.048 Personal history of other malignant neoplasm of rectum, rectosigmoid junction, and anus; Z90.49 Acquired absence of other specified parts of digestive tract; Z92.21 Personal history of antineoplastic chemotherapy; Z93.3 Colostomy status; Z88.1 Allergy status to other antibiotic agents; R40.2412 Glasgow coma scale score 13-15, at arrival to emergency department

== ENCOUNTER 2017-05-26 15:28 | Inpatient (IN) | payer OTHER, MEDICAID ==
[2017-05-26 16:20] VITALS: BMI 19.9
[2017-05-26] MEDS ORDERED: Albuterol-Ipratrop 3 mg / 0.5 (3 ml) UD IH PRN (16:21)
[2017-05-26] MEDS: oxyCODONE 15 mg Immediate Release Tab PO PRN (18:08)
[2017-05-26] MEDS: Magnesium Oxide 400 mg Tab UD PO SCH (18:19)
[2017-05-26] MEDS: Fluticasone Nasal 50 mcg/Spray NS SCH (18:20)
[2017-05-26] MEDS ORDERED: Influenza Vaccine 60 mcg/0.5 mL SYR (4YR UP) IM ONE (19:06)
[2017-05-26] MEDS: Albuterol-Ipratrop 3 mg / 0.5 (3 ml) UD IH SCH (20:07)
[2017-05-26] MEDS: MethylPREDNISolone 40 mg Vial IVP SCH (21:10)
[2017-05-26] MEDS: oxyCODONE 30 mg Immediate Release Tab PO PRN (21:23)
[2017-05-26] MEDS ORDERED: Pneumococcal 23-Valent Vaccine IM ONE (22:06)
[2017-05-27] MEDS: Albuterol-Ipratrop 3 mg / 0.5 (3 ml) UD IH SCH ×4 (01:16→20:47)
[2017-05-27] MEDS: oxyCODONE 15 mg Immediate Release Tab PO PRN ×4 (03:45→19:47)
[2017-05-27] MEDS: Pantoprazole 40 mg EC Tab PO SCH (05:28)
--- NOTE | 2017-05-27 06:16 | CON ---
DATE: 05/26/2017 REFERRING PHYSICIAN: Carter Alvarez MD REASON FOR CONSULTATION: Chronic obstructive lung disease, pneumonia. HISTORY OF PRESENT ILLNESS: This is a 57-year-old female well known to me from acute site of the hospital where she got admitted with shortness of breath, cough, not feeling well, found to have procalcitonin positive. HISTORY OF PRESENT ILLNESS: This is a 57-year-old female with a history of rectal carcinoma, metastatic disease to lungs, mediastinal involvement, also PET scan suggestive of liver lesion, been on chemotherapy, was not feeling well, had chills, shortness of breath. Admitted to the hospital, started on broad-spectrum antibiotics, also started on IV steroids. She felt much better. Presently admitted to the TICU for continued care. Still has some cough and sputum production. No nausea, vomiting, diarrhea, leg pain, or leg swelling. PAST MEDICAL HISTORY: Metastatic rectal carcinoma involving the lungs and liver, chronic obstructive lung disease, history of rectovaginal fistula, status post colostomy. SOCIAL HISTORY: Stopped smoking a few years ago. Denies any alcohol use. ALLERGIES: TO PENICILLIN AND TAZOBACTAM. FAMILY HISTORY: No significant cardiopulmonary disease reported. MEDICATIONS: She is on doxycycline 100 mg twice a day, vitamin D 50,000 units weekly, DuoNeb q. 12 hours p.r.n. and q. 6 hours on the clock, ferrous sulfate 324 mg daily, Flonase 1 spray each nostril twice a day, Levaquin 750 mg daily, Lovenox 30 mg subcu daily, magnesium oxide 400 mg twice a day, oxycodone immediate release 15 mg q.4 hours p.r.n., oxycodone immediate release 30 mg for severe pain, Protonix 40 mg daily, Singulair 10 mg daily, Solu-Medrol 20 mg q. 12 hours, Tessalon Perles q. 8 hours, Tylenol p.r.n., Zofran p.r.n. basis. REVIEW OF SYSTEMS: No headache, no rhinitis. Has some cough, shortness of breath. No chest pain. No nausea, no vomiting, diarrhea, leg pain, leg swelling. PHYSICAL EXAMINATION: GENERAL: Lying in the bed, no acute distress. VITAL SIGNS: Temperature is 98, heart rate 75, respiratory rate is 18, blood pressure 134/53, pulse is 97% on room air. HEENT: Moist mucous membranes. Crowded airway. NECK: Supple. No JVD. LUNGS: Have a few scattered rhonchi. HEART: S1 and S2. ABDOMEN: Soft, nontender. No abnormalities. EXTREMITIES: No pedal edema. NEUROLOGIC: Awake and follows simple commands. LABORATORY DATA: Shows hemoglobin 11.9, hematocrit 36.0, WBC 4.1, platelet is 114. Sodium 139, potassium 3.8, chloride 109, bicarbonate 25, BUN 12, creatinine 0.5. Influenza A and B have been negative. Microbiology: Blood culture and urine culture, there is no growth. IMPRESSION AND PLAN: Chronic obstructive lung disease, rectal carcinoma, metastatic disease to the liver, extensive metastasis to the lungs with mediastinal adenopathy, has a procalcitonin positive, may have pneumonia, cardiac diastolic dysfunction. Pulmonary point of view, doing okay. Continue IV and inhaled bronchodilators. Antibiotics as per Infectious Diseases. Gastric prophylaxis, DVT prophylaxis. Thank you and we will follow with you. Baldemar Mcmahon MD
[2017-05-27 07:13] LABS: HEMATOCRIT 39.9 % (36.0-48.0); MEAN CORPUSCULAR HEMOGLOBIN 32.3 pg (25.0-35.0); MEAN CORPUSCULAR HGB CONC 32.3 g/dl (31.0-37.0); RED CELL DISTRIBUTION WIDTH 16.1 % (11.5-14.5); WHITE BLOOD COUNT 4.4 10^3/ul (4.5-11.0)
[2017-05-27 07:46] LABS: ALB/GLOB RATIO 1.3 (1.1-1.8); ALKALINE PHOSPHATASE 85 U/L (38-126); ALT/SGPT 46 U/L (7-56); AST/SGOT 32 U/L (14-36); BILIRUBIN,TOTAL 0.4 mg/dL (0.2-1.3); BLOOD UREA NITROGEN 15 mg/dL (7-21); CALCIUM 9.7 mg/dL (8.4-10.5); CARBON DIOXIDE 28 mmol/L (21-33); CHLORIDE 107 mmol/L (98-107); GFR AFRICAN-AMERICAN > 60; GLUCOSE,RANDOM 115 mg/dL (70-110); MAGNESIUM 1.4 mg/dL (1.7-2.2); PHOSPHOROUS 3.8 mg/dL (2.5-4.5); POTASSIUM 4.9 mmol/L (3.6-5.0); SODIUM 142 mmol/L (132-148); TOTAL PROTEIN 6.5 g/dL (5.8-8.3)
[2017-05-27] MEDS ORDERED: Magnesium Sulfate 2 GM in Sodium Chloride 0.9% 100 ML IV ONE (08:38)
--- NOTE | 2017-05-27 08:48 | CP.PCM.DIS ---
Provider - Provider Date of Admission: 05/26/17 15:28 Attending physician: Carter Alvarez MD Primary care physician: Rocío Sánchez DO Consults: Pulm: Dr Mcmahon ID: Dr Pardo GI: Dr David Time Spent in preparation of Discharge (in minutes): 45 Diagnosis - Discharge Diagnosis (1) COPD exacerbation Status: Acute (2) Acute bronchitis Status: Acute (3) Abdominal pain Status: Chronic (4) Rectal cancer Status: Chronic (5) Upper respiratory infection Status: Acute (6) Neutropenia Status: Chronic Hospital Course - Lab Results Lab Results: Most Recent Lab Values WBC 4.4 10^3/ul (4.5-11.0) L 05/27/17 06:30 RBC 3.99 10^6/uL (3.5-6.1) 05/27/17 06:30 Hgb 12.9 g/dL (12.0-16.0) 05/27/17 06:30 Hct 39.9 % (36.0-48.0) 05/27/17 06:30 MCV 100.0 fl (80.0-105.0) 05/27/17 06:30 MCH 32.3 pg (25.0-35.0) 05/27/17 06:30 MCHC 32.3 g/dl (31.0-37.0) 05/27/17 06:30 RDW 16.1 % (11.5-14.5) H 05/27/17 06:30 Plt Count 155 10^3/uL (120.0-450.0) 05/27/17 06:30 MPV 11.0 fl (7.0-11.0) 05/27/17 06:30 Sodium 142 mmol/L (132-148) 05/27/17 06:30 Potassium 4.9 mmol/L (3.6-5.0) 05/27/17 06:30 Chloride 107 mmol/L (98-107) 05/27/17 06:30 Carbon Dioxide 28 mmol/L (21-33) 05/27/17 06:30 Anion Gap 12 (10-20) 05/27/17 06:30 BUN 15 mg/dL (7-21) 05/27/17 06:30 Creatinine 0.5 mg/dl (0.7-1.2) L 05/27/17 06:30 Est GFR ( Amer) > 60 05/27/17 06:30 Est GFR (Non-Af Amer) > 60 05/27/17 06:30 Random Glucose 115 mg/dL (70-110) H 05/27/17 06:30 Calcium 9.7 mg/dL (8.4-10.5) 05/27/17 06:30 Phosphorus 3.8 mg/dL (2.5-4.5) 05/27/17 06:30 Magnesium 1.4 mg/dL (1.7-2.2) L 05/27/17 06:30 Total Bilirubin 0.4 mg/dL (0.2-1.3) 05/27/17 06:30 AST 32 U/L (14-36) 05/27/17 06:30 ALT 46 U/L (7-56) 05/27/17 06:30 Alkaline Phosphatase 85 U/L (38-126) 05/27/17 06:30 Total Protein 6.5 g/dL (5.8-8.3) 05/27/17 06:30 Albumin 3.7 g/dL (3.0-4.8) 05/27/17 06:30 Globulin 2.8 gm/dL 05/27/17 06:30 Albumin/Globulin Ratio 1.3 (1.1-1.8) 05/27/17 06:30 - Hospital Course Hospital Course: Mrs Negron is a 57 y/o Female with pmh of stage 4 metastatic rectal carcinoma metastatic to the lung s/p bowel resection and colosotmy, neutropenia, currently on systemic chemotherapy with camptosar and vectibix, s/p on chemo last week whom presented with chills for 3 days and cough productive with whitish sputum. Patient had blood work in the office and was found to have elevated procalcitonin, blood cultures so far negative. Patient's chills was persistent, thus patient was sent from Dr Brooks's office. Patient was admitted for possible bronchitis. Patient was work up for HAP versus endocarditis due to septic embolization from the chemo port with concern for HAcek. So far blood cultures with no growth, and patient remains afebrile. TTE with normal EF with grade 1 relaxation pattern. Patient was seen by multiple services including ID, was started on IV antibiotics which were deescalated to po antibiotics. Patient was also seen by pulm, was started on duonebs and solumedrol for possible copd exacerbation. Patient feels much better and was transferred to TCU to continue rehab. Diet: regular diet as tolerated Activity: resume normal activity as tolerated. - Date & Time of H&P Date of H&P: 05/22/17 Time of H&P: 17:35 Discharge Exam - Head Exam Head Exam: ATRAUMATIC, NORMAL INSPECTION, NORMOCEPHALIC - Eye Exam Eye Exam: EOMI, Normal appearance, PERRL. absent: Scleral icterus Pupil Exam: NORMAL ACCOMODATION - ENT Exam ENT Exam: Mucous Membranes Moist - Neck Exam Neck exam: Normal Inspection - Respiratory Exam Respiratory Exam: Wheezes, NORMAL BREATHING PATTERN, UNREMARKABLE. absent: Rales, Rhonchi, Respiratory Distress, Stridor - Cardiovascular Exam Cardiovascular Exam: REGULAR RHYTHM, RRR, +S1, +S2. absent: Gallop, JVD, Rubs, Systolic Murmur - GI/Abdominal Exam GI & Abdominal Exam: Normal Bowel Sounds, Unremarkable. absent: Distended, Firm , Guarding, Organomegaly, Rigid, Soft, Tenderness Additional comments: Ostomy in place, producing fecal matter. - Extremities Exam Extremities exam: normal inspection - Back Exam Back exam: NORMAL INSPECTION - Neurological Exam Neurological exam: Alert, Oriented x3, Reflexes Normal - Psychiatric Exam Psychiatric exam: Normal Affect, Normal Mood - Skin Skin Exam: Dry, Normal Color, Warm Discharge Plan - Follow Up Plan Condition: GOOD Disposition: REHAB FACILITY/REHAB UNIT Patient education suggested?: Yes Referrals: Rocío Sánchez DO [Primary Care Provider] -
--- NOTE | 2017-05-27 09:00 | CP.PCM.HP ---
History of Present Illness - History of Present Illness History of Present Illness: Mrs Negron is a 57 y/o Female with pmh of stage 4 metastatic rectal carcinoma metastatic to the lung s/p bowel resection and colosotmy, neutropenia, currently on systemic chemotherapy with camptosar and vectibix, s/p on chemo last week whom presented with chills for 3 days and cough productive with whitish sputum. Patient had blood work in the office and was found to have elevated procalcitonin, blood cultures so far negative. Patient's chills was persistent, thus patient was sent from Dr Brooks's office. Patient was admitted for possible bronchitis. Patient was work up for HAP versus endocarditis due to septic embolization from the chemo port with concern for HAcek. So far blood cultures with no growth, and patient remains afebrile. TTE with normal EF with grade 1 relaxation pattern. Patient was seen by multiple services including ID, was started on IV antibiotics which were deescalated to po antibiotics. Patient was also seen by pulm, was started on duonebs and solumedrol for possible copd exacerbation. Patient feels much better, in TCU to continue rehab. ROS: Admits to cough, wheezing, and sob. Denies cp, palpitations. Denies fevers , States the chills has resolved. Denies abdominal pain, n/v/d, denies lack of appetite. Denies fatigue or weakness. PMH: stage 4 metastatic rectal carcinoma metastatic to the lungs, with kras wild type positive, chronic abdominal pain. PSH: abdominoperitoneal resection and colostomy FMH: non contributory Social: Patient states she quit smoking when she found out she had the cancer, however smokes occasionally when she stressed, last tobacco was 2 weeks ago. Denies alcohol or illicit drug use. Allergy: piperacillin and tazobactam. Home meds: Please see araceli for full list. Present on Admission - Present on Admission Any Indicators Present on Admission: No History of DVT/PE: No History of Uncontrolled Diabetes: No Urinary Catheter: No Decubitus Ulcer Present: No History Surgical Site Infection Following: None Review of Systems - Review of Systems All systems: reviewed and no additional remarkable complaints except Review of Systems: As per HPI. Past Patient History - Infectious Disease Hx of Infectious Diseases: None - Tetanus Immunizations Tetanus Immunization: Unknown - Past Medical History & Family History Past Medical History?: Yes - Past Social History Smoking Status: Current Some Days Smoker Alcohol: None Drugs: Denies Home Situation {Lives}: With Family - CARDIAC Hx Cardiac Disorders: No Hx Pacemaker: No - PULMONARY Hx Respiratory Disorders: Yes (SMOKES OCCASIONALLY. LAST SMOKED MAR 2017 1 CIG.DEPENDING ON MOOD.) Hx Chronic Obstructive Pulmonary Disease (COPD): Yes Other/Comment: FORMER SMOKER - NEUROLOGICAL Hx Neurological Disorder: No - HEENT Hx HEENT Problems: No - RENAL Hx Chronic Kidney Disease: No - ENDOCRINE/METABOLIC Hx Endocrine Disorders: No - HEMATOLOGICAL/ONCOLOGICAL Hx Blood Disorders: Yes Hx Anemia: Yes (BT) Hx Cancer: Yes (RECTAL CA WITH LUNG METS COLON) Hx Chemotherapy: Yes Other/Comment: Colorectal CA - INTEGUMENTARY Hx Dermatological Problems: Yes Other/Comment: ON RADIATION TX WITH YANNICK RECTUM PERINEAL REDNESS & EDEMA, has healed, skin is now pink. LEFT COLOSTOMY. BILATERAL GROIN RASH - MUSCULOSKELETAL/RHEUMATOLOGICAL Hx Falls: No - GASTROINTESTINAL Hx Gastrointestinal Disorders: Yes (has colostomy/metastatic colorectal ca) - GENITOURINARY/GYNECOLOGICAL Hx Reproductive Disorders: No - PSYCHIATRIC Hx Emotional Abuse: No Hx Physical Abuse: No - SURGICAL HISTORY Hx Surgeries: Yes Other/Comment: LLQ colostomy. R chest port - ANESTHESIA Hx Anesthesia Reactions: No Hx Malignant Hyperthermia: No Meds Allergies/Adverse Reactions: Allergies Allergy/AdvReac Type Severity Reaction Status Date / Time piperacillin Allergy Mild ITCHING Verified 05/22/17 19:37 tazobactam Allergy Mild ITCHING Verified 05/22/17 19:37 Physical Exam - Constitutional Appears: No Acute Distress, Older Than Stated Age, Cachectic, Chronically Ill - Head Exam Head Exam: ATRAUMATIC, NORMAL INSPECTION, NORMOCEPHALIC - Eye Exam Eye Exam: EOMI, Normal appearance, PERRL. absent: Scleral icterus - ENT Exam ENT Exam: Mucous Membranes Dry - Neck Exam Neck exam: Positive for: Normal Inspection - Respiratory Exam Respiratory Exam: Wheezes, NORMAL BREATHING PATTERN. absent: Rales, Rhonchi, Respiratory Distress, Stridor - Cardiovascular Exam Cardiovascular Exam: REGULAR RHYTHM, +S1, +S2 - GI/Abdominal Exam GI & Abdominal Exam: Normal Bowel Sounds, Soft. absent: Distended, Firm, Guarding, Rebound, Rigid, Tenderness - Extremities Exam Extremities exam: Positive for: normal inspection - Back Exam Back exam: NORMAL INSPECTION - Neurological Exam Neurological exam: Alert, Oriented x3 - Psychiatric Exam Psychiatric exam: Normal Affect, Normal Mood - Skin Skin Exam: Dry, Intact Results - Vital Signs Recent Vital Signs: Last Vital Signs Temp 98.5 F 05/26/17 21:55 Pulse 75 05/26/17 21:55 Resp 18 05/26/17 21:55 BP 134/53 L 05/26/17 21:55 Pulse Ox 97 05/26/17 16:48 - Labs Result Diagrams: 05/27/17 06:30 05/27/17 06:30 Labs: Laboratory Results - last 24 hr 05/27/17 05/27/17 06:30 06:30 WBC 4.4 L RBC 3.99 Hgb 12.9 Hct 39.9 MCV 100.0 MCH 32.3 MCHC 32.3 RDW 16.1 H Plt Count 155 MPV 11.0 Sodium 142 Potassium 4.9 Chloride 107 Carbon Dioxide 28 Anion Gap 12 BUN 15 Creatinine 0.5 L Est GFR ( Amer) > 60 Est GFR (Non-Af Amer) > 60 Random Glucose 115 H Calcium 9.7 Phosphorus 3.8 Magnesium 1.4 L Total Bilirubin 0.4 AST 32 ALT 46 Alkaline Phosphatase 85 Total Protein 6.5 Albumin 3.7 Globulin 2.8 Albumin/Globulin Ratio 1.3 Assessment & Plan (1) COPD exacerbation Assessment and Plan: - Will continue with duonebs - Patient is on solumedrol, as per Pulm - Patient is also on po Levaquin as per ID - Cultures so far with no growth. - Patient to continue with PT. Status: Acute (2) Acute bronchitis Status: Acute (3) Abdominal pain Assessment and Plan: Resolved. Gi following. Status: Chronic (4) Rectal cancer Assessment and Plan: - Will continue oxycodone and percocet prn for pain. Status: Chronic (5) Upper respiratory infection Status: Acute (6) Neutropenia Assessment and Plan: - ANC of 3.00 - Will continue to monitor. Status: Chronic (7) Hypomagnesemia Assessment and Plan: Will replete. Status: Acute Comment: Patient seen, examined and case disucssed with Dr Brooks.
[2017-05-27] MEDS: levoFLOXacin 750 MG TAB PO SCH (11:00)
[2017-05-27] MEDS: Magnesium Oxide 400 mg Tab UD PO SCH ×2 (11:00→18:05)
[2017-05-27] MEDS: MethylPREDNISolone 40 mg Vial IVP SCH ×2 (11:09→22:05)
[2017-05-27] MEDS: Enoxaparin 30 mg Syringe SC SCH (11:10)
[2017-05-27] MEDS: Fluticasone Nasal 50 mcg/Spray NS SCH ×2 (12:11→17:32)
--- NOTE | 2017-05-27 14:13 | CP.PCM.PN ---
Subjective - Date & Time of Evaluation Date of Evaluation: 05/27/17 Time of Evaluation: 10:45 - Subjective Subjective: S&E at bedside, chart reviewed, no acute overnight events. No N/V or abdominal pain, last abdominal pain was on Friday. Colostomy has soft dark stool, on iron pills per patient. H/H is stable. Objective - Vital Signs/Intake and Output Vital Signs (last 24 hours): Temp Pulse Resp BP Pulse Ox 98.5 F 75 18 134/53 L 97 05/26/17 21:55 05/26/17 21:55 05/26/17 21:55 05/26/17 21:55 05/26/17 16:48 - Medications Medications: Current Medications Acetaminophen (Tylenol 325mg Tab) 650 mg PO Q6H PRN; Protocol PRN Reason: Fever >100.4 F Albuterol/Ipratropium (Duoneb 3 Mg/0.5 Mg (3 Ml) Ud) 3 ml IH Q2H PRN; Protocol PRN Reason: Shortness of Breath Albuterol/Ipratropium (Duoneb 3 Mg/0.5 Mg (3 Ml) Ud) 3 ml IH [id number] LACHO PRN Reason: Protocol Last Admin: 05/27/17 13:08 Dose: 3 ml Benzonatate (Tessalon Perles) 100 mg PO TID LACHO PRN Reason: Protocol Last Admin: 05/27/17 11:00 Dose: 100 mg Enoxaparin Sodium (Lovenox) 30 mg SC DAILY LACHO PRN Reason: Protocol Last Admin: 05/27/17 11:10 Dose: 30 mg Ergocalciferol (Drisdol 50,000 Intl Units Cap) 1 cap PO FRI LACHO PRN Reason: Protocol Ferrous Sulfate (Feosol) 324 mg PO DAILY LACHO PRN Reason: Protocol Last Admin: 05/27/17 11:00 Dose: 324 mg Fluticasone Propionate (Flonase) 1 actuation NS BID LACHO PRN Reason: Protocol Last Admin: 05/27/17 12:11 Dose: Not Given Levofloxacin (Levaquin) 750 mg PO DAILY LACHO PRN Reason: Protocol Last Admin: 05/27/17 11:00 Dose: 750 mg Magnesium Oxide (Mag-Ox) 400 mg PO BID LACHO PRN Reason: Protocol Last Admin: 05/27/17 11:00 Dose: 400 mg Methylprednisolone (Solu-Medrol) 20 mg IVP Q12 LACHO PRN Reason: Protocol Last Admin: 05/27/17 11:09 Dose: 20 mg Montelukast Sodium (Singulair) 10 mg PO HS LACHO PRN Reason: Protocol Last Admin: 05/26/17 21:10 Dose: 10 mg Ondansetron HCl (Zofran Inj) 4 mg IVP Q4H PRN; Protocol PRN Reason: Nausea/Vomiting Oxycodone HCl (Oxycodone Immediate Release Tab) 15 mg PO Q4H PRN; Protocol PRN Reason: Pain, moderate (4-7) Last Admin: 05/27/17 11:08 Dose: 15 mg Oxycodone HCl (Oxycodone Immediate Release Tab) 30 mg PO Q6H PRN; Protocol PRN Reason: Pain, severe (8-10) Last Admin: 05/26/17 21:23 Dose: 30 mg Pantoprazole Sodium (Protonix Ec Tab) 40 mg PO 0600 LACHO PRN Reason: Protocol Last Admin: 05/27/17 05:28 Dose: 40 mg - Labs Labs: 05/27/17 06:30 05/27/17 06:30 - Constitutional Appears: No Acute Distress - Head Exam Head Exam: NORMOCEPHALIC - Eye Exam Eye Exam: Normal appearance. absent: Scleral icterus - ENT Exam ENT Exam: Mucous Membranes Moist - Neck Exam Neck Exam: Normal Inspection - Respiratory Exam Respiratory Exam: NORMAL BREATHING PATTERN. absent: Respiratory Distress - Cardiovascular Exam Cardiovascular Exam: +S1, +S2 - GI/Abdominal Exam GI & Abdominal Exam: Soft, Normal Bowel Sounds. absent: Guarding, Tenderness, Rebound Additional comments: (+) colostomy, non tender (+) dark soft stool, no BRB. - Extremities Exam Extremities Exam: absent: Calf Tenderness - Neurological Exam Neurological Exam: Alert, Awake, Oriented x3 - Skin Skin Exam: Dry, Warm Assessment and Plan - Assessment and Plan (Free Text) Assessment: ASSESSMENT: Metestatic colorectal cancer w/ metastasis to Lungs Abdominal Pain, currently denies pain, has colostomy Exacerbation COPD Bronchitis PLAN: on antibiotics on steroids on Lovenox continue PPI diet as tolerated on Iron supplement monitor H/H consider ct scan abdomen and pelvis with oral contrast further evaluation. as per ID/medcine/pulmonology Seen and discussed w/ Dr. David.
--- NOTE | 2017-05-27 22:00 | CON ---
DATE: The patient is seen in room 313. CHIEF COMPLAINT: Weakness. 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 coli urinary tract infection, who is admitted to the acute care for upper respiratory infection and was treated, found to have negative blood cultures. The patient had been complaining of chills. All cultures have been negative. She was diagnosed with bronchitis, was given antibiotics, now transferred to transitional care. This morning, the patient has no fevers and chills. No abdominal pain, diarrhea, or constipation. No bright red blood per rectum. PAST MEDICAL HISTORY: Significant for rectal cancer with lung metastases, had chemotherapy, rectovaginal fistula, group C strep bacteremia, ESBL E. coli urinary tract infection. PAST SURGICAL HISTORY: Significant for loop colostomy. ALLERGIES: THE PATIENT IS ALLERGIC TO TAZOBACTAM, PIPERACILLIN. MEDICATIONS: Reviewed. PHYSICAL EXAMINATION: GENERAL: The patient is in bed in no acute distress, nontoxic. VITAL SIGNS: With a temperature of 98, blood pressure is 130/50, respiratory rate of 18. HEENT: Examination of HEENT is unremarkable. NECK: Supple. LUNGS: Have decreased breath sounds. HEART: Normal S1, S2. ABDOMEN: Soft, nontender. No rebound or guarding. No masses. LABORATORY EXAMINATION: Revealed the patient to have white count of 4.4, hemoglobin of 12, and platelets of 155. Chemistries are noted. Serology is noted. Influenza is negative. Microbiology reveals the blood cultures are negative. Urine cultures are negative. ASSESSMENT AND PLAN: A 57-year-old female with probable acute bronchitis in a patient with metastatic rectal cancer, rectovaginal fistula, history of loop colostomy, and chemotherapy, history of extended-spectrum beta-lactamases Escherichia coli in the urine, now on p.o. Levaquin, may complete 3-5 days of p.o. Levaquin. We will follow with you. Parth Diamond MD
[2017-05-27] MEDS: oxyCODONE 30 mg Immediate Release Tab PO PRN (23:45)
[2017-05-28] MEDS: Albuterol-Ipratrop 3 mg / 0.5 (3 ml) UD IH SCH ×4 (02:00→20:48)
--- NOTE | 2017-05-28 04:09 | PN ---
PULMONARY PROGRESS NOTE DATE: 05/27/2017 REFERRING PHYSICIAN: Joe Abarca MD SUBJECTIVE: She is lying in the bed, head at 45 degrees. Day was unremarkable. Did well in therapy. Breathing is better. Decreased cough. No nausea. No vomiting. No diarrhea. No leg pain or leg swelling. PHYSICAL EXAMINATION GENERAL: In no acute distress. VITAL SIGNS: Temperature is 98, heart rate is 81, respiratory rate is 18, blood pressure is 113/77 and pulse oximetry is 97% on room air. HEENT: Moist mucous membranes. No ulcer or thrush noted. NECK: Supple. No JVD. LUNGS: Has fair air flow with few rhonchi. HEART: S1 and S2. ABDOMEN: Soft and nontender. No organomegaly. EXTREMITIES: There is no edema. NEUROLOGIC: Awake and alert. Follows simple commands. MEDICATIONS: She is on vitamin D 50,000 units weekly, DuoNeb q. 12 hours p.r.n. and q. 6 hours around the clock, ferrous sulfate 324 mg daily, Flonase 1 spray each nostril twice a day, Levaquin 750 mg daily, Lovenox 30 mg subcutaneous daily, magnesium oxide 400 mg daily, oxycodone with immediate release 15 mg q. 4 hours. p.r.n., oxycodone 30 mg q. 6 hours. p.r.n., Protonix 40 mg daily, Singulair 10 mg daily, Solu-Medrol 20 mg q. 12 hours., Tessalon Perles 100 mg three times a day, Tylenol p.r.n. and Zofran p.r.n. basis. LABORATORY DATA: Shows hemoglobin of 12.9, hematocrit of 39.9, WBC of 4.4 and platelets of 155. Sodium of 142, potassium of 4.9, chloride of 107, bicarbonate of 28, BUN of 15, and creatinine of 0.5. Glucose of 115, calcium of 9.7, phosphorus of 3.8, and magnesium of 1.4. AST of 32, ALT of 46, alkaline phosphatase is 85 and albumin is 3.7. IMPRESSION AND PLAN: Chronic obstructive lung disease, pneumonia, rectal carcinoma with metastatic disease to the liver and extensive metastasis to the lungs, and mediastinal adenopathy. From Pulmonary point of view doing okay. Continue antibiotics, bronchodilators, gastric prophylaxis, and deep venous thrombosis prophylaxis. Also has some cardiac diastolic dysfunction. Thank you and we will follow with you. Baldemar Mcmahon MD
[2017-05-28] MEDS: Pantoprazole 40 mg EC Tab PO SCH (05:43)
[2017-05-28] MEDS: oxyCODONE 15 mg Immediate Release Tab PO PRN ×3 (05:46→17:59)
[2017-05-28] MEDS: Enoxaparin 30 mg Syringe SC SCH (09:34)
[2017-05-28] MEDS: MethylPREDNISolone 40 mg Vial IVP SCH ×2 (09:34→21:29)
[2017-05-28] MEDS: Magnesium Oxide 400 mg Tab UD PO SCH ×2 (09:34→17:59)
[2017-05-28] MEDS: levoFLOXacin 750 MG TAB PO SCH (09:34)
[2017-05-28] MEDS: Fluticasone Nasal 50 mcg/Spray NS SCH ×2 (09:46→17:59)
--- NOTE | 2017-05-28 14:24 | CP.PCM.PN ---
Subjective - Date & Time of Evaluation Date of Evaluation: 05/28/17 Time of Evaluation: 07:55 - Subjective Subjective: Heme/Onc progress note for Dr Brooks's service Patient with no acute events overnight. The cough and shortness of breath has improved. Denies cp, nausea, vomiting or diarrhea. Patient is tolerating diet. Objective - Vital Signs/Intake and Output Vital Signs (last 24 hours): Temp Pulse Resp BP Pulse Ox 98 F 81 16 113/77 97 05/27/17 17:36 05/27/17 17:36 05/27/17 17:36 05/27/17 17:36 05/27/17 17:36 Intake and Output: 05/28/17 05/28/17 06:59 18:59 Intake Total 540 Balance 540 - Medications Medications: Current Medications Acetaminophen (Tylenol 325mg Tab) 650 mg PO Q6H PRN; Protocol PRN Reason: Fever >100.4 F Albuterol/Ipratropium (Duoneb 3 Mg/0.5 Mg (3 Ml) Ud) 3 ml IH Q2H PRN; Protocol PRN Reason: Shortness of Breath Albuterol/Ipratropium (Duoneb 3 Mg/0.5 Mg (3 Ml) Ud) 3 ml IH [id number] LACHO PRN Reason: Protocol Last Admin: 05/28/17 13:12 Dose: 3 ml Benzonatate (Tessalon Perles) 100 mg PO TID LACHO PRN Reason: Protocol Last Admin: 05/28/17 09:35 Dose: 100 mg Enoxaparin Sodium (Lovenox) 30 mg SC DAILY LACHO PRN Reason: Protocol Last Admin: 05/28/17 09:34 Dose: 30 mg Ergocalciferol (Drisdol 50,000 Intl Units Cap) 1 cap PO FRI LACHO PRN Reason: Protocol Ferrous Sulfate (Feosol) 324 mg PO DAILY LACHO PRN Reason: Protocol Last Admin: 05/28/17 09:46 Dose: Not Given Fluticasone Propionate (Flonase) 1 actuation NS BID LACHO PRN Reason: Protocol Last Admin: 05/28/17 09:46 Dose: Not Given Levofloxacin (Levaquin) 750 mg PO DAILY LACHO PRN Reason: Protocol Last Admin: 05/28/17 09:34 Dose: 750 mg Magnesium Oxide (Mag-Ox) 400 mg PO BID LACHO PRN Reason: Protocol Last Admin: 05/28/17 09:34 Dose: 400 mg Methylprednisolone (Solu-Medrol) 20 mg IVP Q12 LACHO PRN Reason: Protocol Last Admin: 05/28/17 09:34 Dose: 20 mg Montelukast Sodium (Singulair) 10 mg PO HS LACHO PRN Reason: Protocol Last Admin: 05/27/17 22:05 Dose: 10 mg Ondansetron HCl (Zofran Inj) 4 mg IVP Q4H PRN; Protocol PRN Reason: Nausea/Vomiting Oxycodone HCl (Oxycodone Immediate Release Tab) 15 mg PO Q4H PRN; Protocol PRN Reason: Pain, moderate (4-7) Last Admin: 05/28/17 12:56 Dose: 15 mg Oxycodone HCl (Oxycodone Immediate Release Tab) 30 mg PO Q6H PRN; Protocol PRN Reason: Pain, severe (8-10) Last Admin: 05/27/17 23:45 Dose: 30 mg Pantoprazole Sodium (Protonix Ec Tab) 40 mg PO 0600 [facility] PRN Reason: Protocol Last Admin: 05/28/17 05:43 Dose: 40 mg - Labs Labs: 05/27/17 06:30 05/27/17 06:30 - Constitutional Appears: No Acute Distress, Older Than Stated Age, Cachectic, Chronically Ill - Head Exam Head Exam: ATRAUMATIC, NORMAL INSPECTION, NORMOCEPHALIC - Eye Exam Eye Exam: Normal appearance Pupil Exam: NORMAL ACCOMODATION - ENT Exam ENT Exam: Mucous Membranes Moist - Neck Exam Neck Exam: Lymphadenopathy - Respiratory Exam Respiratory Exam: Clear to Ausculation Bilateral, NORMAL BREATHING PATTERN. absent: Rales, Rhonchi, Wheezes, Respiratory Distress, Stridor - Cardiovascular Exam Cardiovascular Exam: REGULAR RHYTHM, +S1, +S2 - GI/Abdominal Exam GI & Abdominal Exam: Soft, Normal Bowel Sounds. absent: Distended, Firm, Guarding, Rigid, Tenderness - Extremities Exam Extremities Exam: Normal Inspection. absent: Pedal Edema - Back Exam Back Exam: NORMAL INSPECTION - Neurological Exam Neurological Exam: Alert, Awake, Oriented x3 - Psychiatric Exam Psychiatric exam: Normal Affect, Normal Mood - Skin Skin Exam: Dry, Intact, Warm Assessment and Plan (1) COPD exacerbation Assessment & Plan: - Will d/c Levaquin and continue with doxy for 3-5 days. - duoneb prn - On solumedrol tapering dose, to be switched to po upon discharge - Patient to get influenza vaccine upon discharge and get pneumovax as outpatient. Status: Acute (2) Acute bronchitis Status: Acute (3) Abdominal pain Assessment & Plan: Resolved, patient is tolerating po and ostomy is function. Status: Chronic (4) Rectal cancer Assessment & Plan: morphine and percocet prn for pain Patient to follow up with Dr Brooks on Friday. Status: Chronic (5) Upper respiratory infection Status: Acute (6) Neutropenia Status: Chronic (7) Hypomagnesemia Assessment & Plan: Continue with po magnesium. Status: Chronic
[2017-05-28] MEDS ORDERED: Influenza Vaccine 60 mcg/0.5 mL SYR (4YR UP) IM ONE (14:38)
[2017-05-28 17:41] VITALS: BP 118/72; PULSE 80; RESP 20; TEMP 98.7; O2SAT 98
--- NOTE | 2017-05-28 18:14 | PN ---
DATE: 05/28/2017 SUBJECTIVE: The patient is seen in bed, in no acute distress, and nontoxic. No fever. PHYSICAL EXAMINATION: VITAL SIGNS: Temperature is 98, blood pressure is 113/70, and respiratory rate is 18. HEENT: Unremarkable. NECK: Supple. LUNGS: Decreased breath sounds. HEART: Normal S1 and S2. ABDOMEN: Soft and nontender. LABORATORY DATA: Reveals a white count of 4.4 and hemoglobin of 12. Chemistries are noted. The BUN of 15 and creatinine of 0.5. Urinalysis is noted. ASSESSMENT AND PLAN: A 57-year-old female, seen earlier this morning with rectal cancer metastasis to the lung, on chemotherapy; rectovaginal fistula, and loop colostomy with extended-spectrum beta-lactamases urine by history. Currently on p.o. Levaquin and may continue as such short course of therapy. Parth Diamond MD
[2017-05-28] MEDS: oxyCODONE 30 mg Immediate Release Tab PO PRN (23:03)
[2017-05-29] MEDS: Albuterol-Ipratrop 3 mg / 0.5 (3 ml) UD IH SCH ×3 (03:27→13:21)
[2017-05-29] MEDS: oxyCODONE 15 mg Immediate Release Tab PO PRN ×3 (05:19→14:25)
[2017-05-29] MEDS: Pantoprazole 40 mg EC Tab PO SCH (05:19)
--- NOTE | 2017-05-29 05:37 | PN ---
PULMONARY PROGRESS NOTE DATE: 05/28/2017 SUBJECTIVE: She is sitting at the side of the bed. Night was unremarkable. Had a flu shot today. Breathing is better. No nausea. No vomiting. No diarrhea. No leg pain or leg swelling. OBJECTIVE: GENERAL: In no acute distress. VITAL SIGNS: Temperature is 98, heart rate is 82, respiratory rate is 18, blood pressure is 118/72, pulse oximetry 98% on room air. HEENT: Moist mucous membrane. No ulcer or thrush noted. NECK: Supple. No JVD. LUNGS: Fair airflow with a few rhonchi. HEART: S1 and S2. ABDOMEN: Soft and nontender. No organomegaly. EXTREMITIES: No edema. NEUROLOGIC: Awake and alert. Follows simple commands. MEDICATIONS: She is on vitamin D one capsule weekly; DuoNeb q. 12 hours p.r.n. and q. 6 hours around the clock; ferrous sulfate 324 mg daily; Flonase 1 spray twice a day; Levaquin 750 mg daily; Lovenox 30 mg subcutaneous daily; magnesium oxide 400 mg twice a day; oxycodone immediate release 15 mg q. 4 hours. p.r.n. and 30 mg for severe pain; Protonix 40 mg daily; Singulair 10 mg daily; Solu-Medrol 20 mg twice a day; Tessalon Perles 100 mg three times a day; Tylenol p.r.n.; Zofran p.r.n. basis. LABORATORY DATA: Reviewed. No new lab is available since yesterday. IMPRESSION AND PLAN: Chronic obstructive lung disease, pneumonia, rectal carcinoma with metastatic disease to liver and extensive disease to the lungs, mediastinal adenopathy. Pulmonary point of view, doing okay. We will decrease Solu-Medrol to 20 mg daily. Gastric prophylaxis, DVT prophylaxis. Thank you and we will follow with you. Baldemar Mcmahon MD
--- NOTE | 2017-05-29 07:54 | CP.PCM.DIS ---
Provider - Provider Date of Admission: 05/26/17 15:28 Attending physician: Carter Alvarez MD Primary care physician: Rocío Sánchez DO Consults: ID: Dr Dara Bricem: Dr Mcmahon Gi: Dr David Time Spent in preparation of Discharge (in minutes): 45 Diagnosis - Discharge Diagnosis (1) COPD exacerbation Status: Resolved (2) Acute bronchitis Status: Resolved (3) Abdominal pain Status: Chronic (4) Rectal cancer Status: Chronic (5) Upper respiratory infection Status: Resolved (6) Neutropenia Status: Chronic (7) Hypomagnesemia Status: Chronic Hospital Course - Lab Results Lab Results: Most Recent Lab Values WBC 4.4 10^3/ul (4.5-11.0) L 05/27/17 06:30 RBC 3.99 10^6/uL (3.5-6.1) 05/27/17 06:30 Hgb 12.9 g/dL (12.0-16.0) 05/27/17 06:30 Hct 39.9 % (36.0-48.0) 05/27/17 06:30 MCV 100.0 fl (80.0-105.0) 05/27/17 06:30 MCH 32.3 pg (25.0-35.0) 05/27/17 06:30 MCHC 32.3 g/dl (31.0-37.0) 05/27/17 06:30 RDW 16.1 % (11.5-14.5) H 05/27/17 06:30 Plt Count 155 10^3/uL (120.0-450.0) 05/27/17 06:30 MPV 11.0 fl (7.0-11.0) 05/27/17 06:30 Sodium 142 mmol/L (132-148) 05/27/17 06:30 Potassium 4.9 mmol/L (3.6-5.0) 05/27/17 06:30 Chloride 107 mmol/L (98-107) 05/27/17 06:30 Carbon Dioxide 28 mmol/L (21-33) 05/27/17 06:30 Anion Gap 12 (10-20) 05/27/17 06:30 BUN 15 mg/dL (7-21) 05/27/17 06:30 Creatinine 0.5 mg/dl (0.7-1.2) L 05/27/17 06:30 Est GFR ( Amer) > 60 05/27/17 06:30 Est GFR (Non-Af Amer) > 60 05/27/17 06:30 Random Glucose 115 mg/dL (70-110) H 05/27/17 06:30 Calcium 9.7 mg/dL (8.4-10.5) 05/27/17 06:30 Phosphorus 3.8 mg/dL (2.5-4.5) 05/27/17 06:30 Magnesium 1.4 mg/dL (1.7-2.2) L 05/27/17 06:30 Total Bilirubin 0.4 mg/dL (0.2-1.3) 05/27/17 06:30 AST 32 U/L (14-36) 05/27/17 06:30 ALT 46 U/L (7-56) 05/27/17 06:30 Alkaline Phosphatase 85 U/L (38-126) 05/27/17 06:30 Total Protein 6.5 g/dL (5.8-8.3) 05/27/17 06:30 Albumin 3.7 g/dL (3.0-4.8) 05/27/17 06:30 Globulin 2.8 gm/dL 05/27/17 06:30 Albumin/Globulin Ratio 1.3 (1.1-1.8) 05/27/17 06:30 - Hospital Course Hospital Course: Mrs Negron is a 57 y/o Female with pmh of stage 4 metastatic rectal carcinoma metastatic to the lung s/p bowel resection and colosotmy, neutropenia, currently on systemic chemotherapy with camptosar and vectibix, s/p on chemo last week whom presented with chills for 3 days and cough productive with whitish sputum. Patient had blood work in the office and was found to have elevated procalcitonin, blood cultures so far negative. Patient's chills was persistent, thus patient was sent from Dr Brooks's office. Patient was admitted for possible bronchitis. Patient was work up for HAP versus endocarditis due to septic embolization from the chemo port with concern for HAcek. So far blood cultures with no growth, and patient remains afebrile. TTE with normal EF with grade 1 relaxation pattern. Patient was seen by multiple services including ID, was started on IV antibiotics which were deescalated to po antibiotics. Patient was also seen by pulm, was started on duonebs and solumedrol for possible copd exacerbation. Patient's symptoms improved. Patient was transfered to TCU for 3 days. Patient to be discharge and to follow up with Dr Brooks as outpatient. Patient was giving flu shot prior to discharge and will follow up with her PMD for pneumovax. Tapering dose prednisone, tessalon perles, singulair and 3 days worth of doxy sent to [facility] pharmacy. Diet: regular diet as tolerated Activity: resume normal activity as tolerated. - Date & Time of H&P Date of H&P: 05/27/17 Time of H&P: 08:59 Discharge Exam - Head Exam Head Exam: ATRAUMATIC, NORMAL INSPECTION, NORMOCEPHALIC - Eye Exam Eye Exam: EOMI, Normal appearance, PERRL. absent: Scleral icterus - ENT Exam ENT Exam: Mucous Membranes Moist - Neck Exam Neck exam: Normal Inspection - Respiratory Exam Respiratory Exam: Clear to PA & Lateral, NORMAL BREATHING PATTERN, UNREMARKABLE. absent: Rales, Rhonchi, Wheezes, Respiratory Distress, Stridor - Cardiovascular Exam Cardiovascular Exam: REGULAR RHYTHM, +S1, +S2 - GI/Abdominal Exam GI & Abdominal Exam: Normal Bowel Sounds, Unremarkable. absent: Distended, Firm , Guarding, Rigid, Soft, Tenderness Additional comments: Ostomy in place, producing normal caliber stool. - Extremities Exam Extremities exam: normal inspection - Back Exam Back exam: NORMAL INSPECTION - Neurological Exam Neurological exam: Alert, Oriented x3, Reflexes Normal - Psychiatric Exam Psychiatric exam: Normal Affect, Normal Mood - Skin Skin Exam: Dry, Normal Color, Warm Discharge Plan - Discharge Medications Prescriptions: Benzonatate [Tessalon Perles] 100 mg PO TID #30 sgl Doxycycline Monohydrate 100 mg PO BID #6 capsule Montelukast [Singulair] 10 mg PO HS #30 tab Prednisone [Cecilia] 5 mg PO DAILY #3 tablet.dr - Follow Up Plan Condition: GOOD Disposition: HOME/ ROUTINE Instructions: Asthma (DC), Upper Respiratory Infection (DC), Acute Bronchitis ( GEN), COPD (Chronic Obstructive Pulmonary Disease) (DC), Neutropenia (DC) Additional Instructions: Please follow up in Dr Brooks's office on Friday. Take the antibiotic- doxycycline for 3 more days Take take prednisone as directed. Continue with ventolin prn for sob/wheezing Use the tessalon perlse for cough as needed. Referrals: Esperanza Boroks MD [Staff Provider] - Rocío Sánchez DO [Primary Care Provider] -
[2017-05-29] MEDS: Enoxaparin 30 mg Syringe SC SCH (09:50)
[2017-05-29] MEDS: Magnesium Oxide 400 mg Tab UD PO SCH (09:51)
[2017-05-29] MEDS: levoFLOXacin 750 MG TAB PO SCH (09:53)
[2017-05-29] MEDS: Fluticasone Nasal 50 mcg/Spray NS SCH (09:53)
[2017-05-29] MEDS ORDERED: MethylPREDNISolone 40 mg Vial IVP SCH (10:00)
--- NOTE | 2017-05-29 13:25 | CP.PCM.PN ---
Subjective - Date & Time of Evaluation Date of Evaluation: 05/29/17 Time of Evaluation: 10:30 - Subjective Subjective: S&E at bedside, chart reviewed, no c/o N/V or abdominal pain. Colostomy with BM , no bleeding. No new compliants. Objective - Vital Signs/Intake and Output Vital Signs (last 24 hours): Temp Pulse Resp BP Pulse Ox 98.7 F 80 20 118/72 98 05/28/17 17:40 05/28/17 17:40 05/28/17 17:40 05/28/17 17:40 05/28/17 17:40 Intake and Output: 05/29/17 05/29/17 06:59 18:59 Intake Total 540 Balance 540 - Medications Medications: Current Medications Acetaminophen (Tylenol 325mg Tab) 650 mg PO Q6H PRN; Protocol PRN Reason: Fever >100.4 F Albuterol/Ipratropium (Duoneb 3 Mg/0.5 Mg (3 Ml) Ud) 3 ml IH Q2H PRN; Protocol PRN Reason: Shortness of Breath Albuterol/Ipratropium (Duoneb 3 Mg/0.5 Mg (3 Ml) Ud) 3 ml IH [id number] LACHO PRN Reason: Protocol Last Admin: 05/29/17 07:17 Dose: 3 ml Benzonatate (Tessalon Perles) 100 mg PO TID LACHO PRN Reason: Protocol Last Admin: 05/29/17 13:08 Dose: 100 mg Enoxaparin Sodium (Lovenox) 30 mg SC DAILY LACHO PRN Reason: Protocol Last Admin: 05/29/17 09:50 Dose: 30 mg Ergocalciferol (Drisdol 50,000 Intl Units Cap) 1 cap PO FRI LACHO PRN Reason: Protocol Ferrous Sulfate (Feosol) 324 mg PO DAILY LACHO PRN Reason: Protocol Last Admin: 05/29/17 09:53 Dose: 324 mg Fluticasone Propionate (Flonase) 1 actuation NS BID LACHO PRN Reason: Protocol Last Admin: 05/29/17 09:53 Dose: Not Given Levofloxacin (Levaquin) 750 mg PO DAILY LACHO PRN Reason: Protocol Last Admin: 05/29/17 09:53 Dose: 750 mg Magnesium Oxide (Mag-Ox) 400 mg PO BID LACHO PRN Reason: Protocol Last Admin: 05/29/17 09:51 Dose: 400 mg Methylprednisolone (Solu-Medrol) 20 mg IVP DAILY LACHO PRN Reason: Protocol Last Admin: 05/29/17 09:51 Dose: 20 mg Montelukast Sodium (Singulair) 10 mg PO HS LACHO PRN Reason: Protocol Last Admin: 05/28/17 21:30 Dose: 10 mg Ondansetron HCl (Zofran Inj) 4 mg IVP Q4H PRN; Protocol PRN Reason: Nausea/Vomiting Oxycodone HCl (Oxycodone Immediate Release Tab) 15 mg PO Q4H PRN; Protocol PRN Reason: Pain, moderate (4-7) Last Admin: 05/29/17 09:50 Dose: 15 mg Oxycodone HCl (Oxycodone Immediate Release Tab) 30 mg PO Q6H PRN; Protocol PRN Reason: Pain, severe (8-10) Last Admin: 05/28/17 23:03 Dose: 30 mg Pantoprazole Sodium (Protonix Ec Tab) 40 mg PO 0600 [facility] PRN Reason: Protocol Last Admin: 05/29/17 05:19 Dose: 40 mg - Labs Labs: 05/27/17 06:30 05/27/17 06:30 - Constitutional Appears: No Acute Distress - Head Exam Head Exam: NORMOCEPHALIC - Eye Exam Eye Exam: Normal appearance. absent: Scleral icterus - ENT Exam ENT Exam: Mucous Membranes Moist - Neck Exam Neck Exam: Normal Inspection - Respiratory Exam Respiratory Exam: NORMAL BREATHING PATTERN. absent: Respiratory Distress - Cardiovascular Exam Cardiovascular Exam: +S1, +S2 - GI/Abdominal Exam GI & Abdominal Exam: Soft, Normal Bowel Sounds. absent: Guarding, Tenderness, Rebound Additional comments: (+) colostomy w/ stool on bleeding - Extremities Exam Extremities Exam: absent: Calf Tenderness, Pedal Edema - Neurological Exam Neurological Exam: Alert, Awake, Oriented x3 Assessment and Plan - Assessment and Plan (Free Text) Assessment: ASSESSMENT: Metestatic colorectal cancer w/ metastasis to Lungs Resolved Abdominal Pain, has colostomy S/p Exacerbation COPD Bronchitis PLAN: off antibiotics on steroids continue PPI diet as tolerated on Iron supplement monitor H/H for d/c home today, Patient FU w/ oncologist outpatient, can consider ct scan abdomen and pelvis if abdominal pain returns, discuss w/ patient. Seen and discussed w/ Dr. David.
--- NOTE | 2017-05-29 19:06 | PN ---
DATE: 05/29/2017 SUBJECTIVE: The patient is seen in bed, in no acute distress, and nontoxic. No fever or chills. PHYSICAL EXAMINATION: VITAL SIGNS: Temperature is 98, blood pressure is 118/70, and respiratory rate is 20. HEENT: Unremarkable. NECK: Supple. LUNGS: Decreased breath sounds. HEART: Normal S1 and S2. ABDOMEN: Soft and nontender. LABORATORY DATA: Reveals a white count of 4.4 and hemoglobin of 12. BUN of 15 and creatinine of 0.5. Microbiology is noted. 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 Parth Diamond MD
[2017-05-30] MEDS ORDERED: Ergocalciferol 50,000 Intl Units Cap PO SCH (10:00)
== END 2017-05-29 16:01 | disposition home or self-care (01) | DRG 190 ==
LOC: TRCU 15:28
PROVIDERS: ADMIT Family Medicine; ATTEND Family Medicine
PROC: 3E0234Z Introduction of Serum, Toxoid and Vaccine into Muscle, Percutaneous Approach (ICD-10-PCS; principal; 2017-05-29)
DX: J44.1 Chronic obstructive pulmonary disease with (acute) exacerbation (principal); J18.9 Pneumonia, unspecified organism; C78.00 Secondary malignant neoplasm of unspecified lung; D70.9 Neutropenia, unspecified; C78.7 Secondary malignant neoplasm of liver and intrahepatic bile duct; E83.42 Hypomagnesemia; J06.9 Acute upper respiratory infection, unspecified; J20.9 Acute bronchitis, unspecified; J44.0 Chronic obstructive pulmonary disease with (acute) lower respiratory infection; Z85.048 Personal history of other malignant neoplasm of rectum, rectosigmoid junction, and anus; F17.200 Nicotine dependence, unspecified, uncomplicated; Z90.49 Acquired absence of other specified parts of digestive tract; Z93.3 Colostomy status; Z23 Encounter for immunization; D64.9 Anemia, unspecified; Z88.1 Allergy status to other antibiotic agents; R10.9 Unspecified abdominal pain; R59.0 Localized enlarged lymph nodes

== ENCOUNTER 2017-11-15 17:14 | Inpatient (IN) | payer MEDICARE, MEDICAID ==
[2017-11-15 17:25] VITALS: BMI 19.3
[2017-11-15] MEDS ORDERED: Sodium Chloride 0.9% 1,000 ML IV STA (18:03)
[2017-11-15] MEDS ORDERED: Morphine 4 mg/ml ISec IVP STA ×2 (18:17→20:32)
[2017-11-15] MEDS ORDERED: Iohexol 240 (50 ml) ONE (18:26)
[2017-11-15 18:50] LABS: URINE APPEARANCE CLEAR (CLEAR); URINE BILIRUBIN NEGATIVE (NEGATIVE); URINE BLOOD NEGATIVE (NEGATIVE); URINE COLOR YELLOW (YELLOW); URINE GLUCOSE (UA) NEGATIVE (NEGATIVE); URINE LEUKOCYTE ESTERASE SMALL Leu/uL (NEGATIVE); URINE PROTEIN NEGATIVE mg/dL (<30 mg/dL); URINE UROBILINOGEN 0.2 E.U./dL (<1 E.U./dL)
[2017-11-15 18:52] LABS: BASO # 0.04 K/mm3 (0.0-2.0); BASO % 0.7 % (0.0-3.0); EOS # 0.1 (0.0-0.7); EOS % 1.9 % (1.5-5.0); GRAN # 4.31 (1.4-6.5); GRAN % 74.8 % (50.0-68.0); HEMOGLOBIN 13.6 g/dL (12.0-16.0); LYMPH # 0.8 (1.2-3.4); LYMPH % 14.4 % (22.0-35.0); MEAN CELL VOLUME 95.7 fl (80.0-105.0); MEAN CORPUSCULAR HEMOGLOBIN 32.3 pg (25.0-35.0); MEAN CORPUSCULAR HGB CONC 33.7 g/dl (31.0-37.0); MEAN PLATELET VOLUME 9.6 fl (7.0-11.0); MONO # 0.5 (0.1-0.6); MONO % 8.2 % (1.0-6.0); RBC 4.21 10^6/uL (3.5-6.1); RED CELL DISTRIBUTION WIDTH 15.1 % (11.5-14.5); WHITE BLOOD COUNT 5.8 10^3/ul (4.5-11.0)
--- NOTE | 2017-11-15 18:55 | ED PDOC ---
Arrival/HPI - General Chief Complaint: Abdominal Pain Time Seen by Provider: 11/15/17 17:25 Historian: Patient - History of Present Illness Narrative History of Present Illness (Text): 11/15/17 18:51 57-year-old female with metastatic cancer presents today with lower abdominal pain and diarrhea. She denies fevers but states she has some chills. Patient states she has a chronic cough. Denies dizziness or weakness. Patient states she has a headache. Patient states she started a new medication prescribed by her oncologist. Patient states these are the exact symptoms she had when she took the medication in previously. Patient states to the symptoms she stopped the medication and 4 days ago and restarted the medications and the symptoms returned. Patient denies back pain. States she's been checking her blood pressure at home and is been normal. Patient states she is taking pain medications without improvement in her abdominal pain. Patient states abdominal pain is sharp stabbing and intermittent. Patient states she's noticed a moderate amount of diarrhea from the colostomy. Past Medical History - Provider Review Nursing Documentation Reviewed: Yes - Travel History Have you recently traveled outside [place] w/in the past 3 mons?: No - Infectious Disease Hx of Infectious Diseases: None - Tetanus Immunization Tetanus Immunization: Unknown - Reproductive Menopause: Yes - Cardiac Hx Cardiac Disorders: No - Pulmonary Hx Chronic Obstructive Pulmonary Disease (COPD): Yes - Neurological Hx Neurological Disorder: No - HEENT Hx HEENT Disorder: No - Renal Hx Renal Disorder: No - Endocrine/Metabolic Hx Endocrine Disorders: No - Hematological/Oncological Hx Blood Disorders: Yes Hx Anemia: Yes (BT) Hx Cancer: Yes (RECTAL CA WITH LUNG METS COLON) Hx Chemotherapy: Yes Other/Comment: Colorectal CA - Integumentary Hx Dermatological Disorder: Yes Other/Comment: ON RADIATION TX WITH YANNICK RECTUM PERINEAL REDNESS & EDEMA, has healed, skin is now pink. LEFT COLOSTOMY. BILATERAL GROIN RASH - Musculoskeletal/Rheumatological Hx Falls: No - Gastrointestinal Hx Gastrointestinal Disorders: Yes (has colostomy/metastatic colorectal ca) - Genitourinary/Gynecological Hx Reproductive Disorders: No - Psychiatric Hx Emotional Abuse: No Hx Physical Abuse: No Hx Substance Use: No - Surgical History Other/Comment: LLQ colostomy. R chest port - Anesthesia Hx Anesthesia Reactions: No Hx Malignant Hyperthermia: No - Suicidal Assessment Feels Threatened In Home Enviroment: No Family/Social History - Physician Review Nursing Documentation Reviewed: Yes Family/Social History: Unknown Family HX Smoking Status: Current Some Days Smoker Hx Alcohol Use: Yes (OCCASIONAL) Frequency of alcohol use: Socially Hx Substance Use: No Hx Substance Use Treatment: No Allergies/Home Meds Allergies/Adverse Reactions: Allergies piperacillin Allergy (Mild, Verified 11/15/17 21:01) ITCHING ITCHING AND REDNESS OF HANDS AND TINGLING IN LIPS tazobactam Allergy (Mild, Verified 11/15/17 21:01) ITCHING ITCHING AND REDNESS OF HANDS AND TINGLING IN LIPS Home Medications: Home Meds Medication Instructions Recorded Confirmed Ergocalciferol (Vitamin D2) 50,000 units PO FRI 03/04/16 05/26/17 [Vitamin D2] Ferrous Sulfate [Feosol] 325 mg PO DAILY 03/04/16 05/26/17 Pantoprazole Sodium [Protonix] 40 mg PO DAILY 06/10/16 05/26/17 Pyridoxine [Vitamin B6] 100 mg PO DAILY 03/11/17 05/26/17 oxyCODONE [oxyCODONE Immediate 30 mg PO Q6H PRN 03/11/17 05/26/17 Release Tab] Review of Systems - Review of Systems Constitutional: Fatigue. absent: Fevers Respiratory: Cough. absent: SOB Cardiovascular: absent: Chest Pain, Palpitations Gastrointestinal: Abdominal Pain, Diarrhea, Nausea. absent: Vomiting Genitourinary Female: absent: Dysuria, Frequency Musculoskeletal: absent: Arthralgias, Back Pain, Neck Pain Skin: absent: Rash, Pruritis Neurological: Headache. absent: Dizziness Psychiatric: absent: Anxiety, Depression, Suicidal Ideation Physical Exam Vital Signs Reviewed: Yes Vital Signs Temp Pulse Resp BP Pulse Ox 11/15/17 21:53 72 18 169/99 H 98 11/15/17 20:55 72 18 145/89 97 11/15/17 18:07 76 18 133/85 95 11/15/17 17:14 98.7 F 103 H 18 138/89 73 L Temperature: Afebrile Blood Pressure: Normal Pulse: Tachycardic Respiratory Rate: Normal Appearance: Positive for: Well-Appearing, Non-Toxic, Comfortable Pain Distress: None Mental Status: Positive for: Alert and Oriented X 3 - Systems Exam Head: Present: Atraumatic Extroacular Muscles: Present: EOMI Mouth: Present: Moist Mucous Membranes Neck: Present: Normal Range of Motion Respiratory/Chest: Present: Clear to Auscultation, Good Air Exchange. No: Respiratory Distress, Accessory Muscle Use Cardiovascular: Present: Regular Rate and Rhythm, Normal S1, S2. No: Murmurs Abdomen: Present: Tenderness (minimal lower abdominal tenderness), Ostomy Tubes. No: Distention, Peritoneal Signs, Rebound, Guarding Back: Present: Normal Inspection Upper Extremity: Present: Normal ROM Lower Extremity: Present: Normal ROM Neurological: Present: GCS=15, Speech Normal Skin: Present: Warm, Dry, Normal Color. No: Rashes Psychiatric: Present: Alert, Oriented x 3 Medical Decision Making ED Course and Treatment: 11/15/17 19:06 Patient is nontoxic well appearing with stable vital signs presenting with lower abdominal pain CBC: wnl CMP: alk phos elevated Lipase: wnl Urinalysis: pt is requesting low doses of morphine; states she doesn't want to feel "loopy" CAT scan abd/pelvisFINDINGS: LUNG BASES: Interval development of bilateral pulmonary masses. 3 are seen in the visualized lung bases, the largest, in the right lung base, measuring 4.5 x 3.5 cm. These are highly suspicious for malignancy, most likely pulmonary metastases. This is a known finding, described on the prior PET/CT report. ABDOMEN: LIVER: Fatty infiltration of the liver. No evidence of diffuse liver lesions. GALLBLADDER AND BILE DUCTS: Biliary ductal dilatation, with the common bile duct measuring up to 9 mm in diameter. No cause for this finding is seen by CT. Mildly contracted gallbladder. No CT evidence of acute cholecystitis. PANCREAS: No CT evidence of acute pancreatitis. SPLEEN: No acute abnormality of the spleen identified. ADRENALS: No acute abnormality of the adrenal glands identified. KIDNEYS AND URETERS: Bilateral tiny, nonobstructing renal stones. Incidental fluid density probable cystic right renal lesion, measuring less than 10 mm. Consistent with the [employer]'s Incidental Findings Committee Report, unless the patient's specific circumstances suggest otherwise, any cystic kidney lesion less than 1.0 cm not otherwise characterized in this report as possessing suspicious or indeterminate imaging features is/are highly likely to be benign and do not require follow-up imaging or biopsy. No acute abnormality of the kidneys identified. STOMACH AND BOWEL: Mild wall thickening of the cecum and ascending colon. This could represent pseudo-wall thickening due to underdistention/incomplete distension versus mild colitis Evidence of previous rectal resection. Sigmoid colostomy in the left anterior pelvis Surgical suture line/surgical anatomosis is noted in the transverse colon. Otherwise, no significant abnormality of the bowel is identified. No evidence of bowel obstruction. Otherwise, no significant abnormality of the bowel is identified. PELVIS: APPENDIX: Appendix is seen, and is within normal limits in appearance. BLADDER: No acute abnormality of the bladder identified. REPRODUCTIVE:No acute abnormality of the reproductive organs is seen. No acute abnormality of the uterus identified. No evidence of large adnexal masses. SUBPERITONEAL SPACE: Low density soft tissue in the posterior pelvis, in the presacral region, with a crescent shaped appearance, and ill-defined margins. This measures 6 x 2 cm maximally. It is mildly decreased in size compared to the prior CT. This most likely represents chronic post radiation/post operative changes changes, given its appearance and location. ABDOMEN and PELVIS: INTRAPERITONEAL SPACE: No evidence of free intraperitoneal air or fluid. BONES/JOINTS: Bony structures appear demineralized. SOFT TISSUES: No acute abnormality of the visualized soft tissues is seen. VASCULATURE: No evidence of abdominal aortic aneurysm. No evidence of periaortic hemorrhage. LYMPH NODES: No evidence of diffuse lymphadenopathy. IMPRESSION: - Underdistention versus wall thickening/mild segmental colitis involving the ascending colon. Recommend clinical correlation. - Mild dilatation of the common bile duct, cause not identified. Recommend correlation with LFTs for laboratory evidence of biliary obstruction. - Otherwise, no evidence of significant acute process. - Bilateral lung masses, compatible with the known pulmonary metastatic lesions. - Presacral soft tissue, most likely representing chronic post radiation/post operative changes. - Post operative changes involving the colon. - See above for remaining findings head ct: FINDINGS: LIMITATIONS: Mild streak/motion artifact. BRAIN: No significant acute abnormality identified. No acute hemorrhage seen within the brain. No acute extra-axial fluid collections visualized. No evidence of significant mass effect within the brain. VENTRICLES: No evidence of significant hydrocephalus. BONES/JOINTS: No acute fractures or other acute bony abnormality noted. SOFT TISSUES: No acute abnormality of the visualized soft tissues is seen. SINUSES: Visualized paranasal sinuses appear clear. MASTOID AIR CELLS: Mastoid air cells appear clear. IMPRESSION: - No acute findings seen within the brain. - See above for remaining findings. Patient reassessment: pt requiring continued pain medications. pt c/o continued pain; cipro and flagyl given IV for colitis. case discussed with dr. hollis; will admit to med/surg will consult GI as patient with dilatation of common bile duct 9mm, intractable abdominal pain. stool cultures ordered Discussed all results with patient in depth all aspects of this case were discussed the attending of record. Impression: Abdominal pain, diarrhea, dilatation of common bile duct admit med/surg Reassessment Condition: Re-examined, Improving,but remains with symptoms - Lab Interpretations Lab Results: 11/15/17 18:30 11/15/17 18:30 Lab Results 11/15/17 18:30: WBC 5.8, RBC 4.21, Hgb 13.6, Hct 40.3, MCV 95.7, MCH 32.3, MCHC 33.7, RDW 15.1 H, Plt Count 282, MPV 9.6, Gran % 74.8 H, Lymph % (Auto) 14.4 L, [place] % (Auto) 8.2 H, Eos % (Auto) 1.9, Baso % (Auto) 0.7, Gran # 4.31, Lymph # ( Auto) 0.8 L, [place] # (Auto) 0.5, Eos # (Auto) 0.1, Baso # (Auto) 0.04 11/15/17 18:30: Sodium 147, Potassium 3.8, Chloride 107, Carbon Dioxide 27, Anion Gap 17, BUN 4 L, Creatinine 0.4 L, Est GFR ( Amer) > 60, Est GFR ( Non-Af Amer) > 60, Random Glucose 92, Calcium 9.1, Total Bilirubin 0.5, AST 50 H , ALT 39, Alkaline Phosphatase 146 H, Total Protein 6.5, Albumin 3.6, Globulin 2.9, Albumin/Globulin Ratio 1.3, Lipase 33 11/15/17 18:30: Urine Color Yellow, Urine Appearance Clear, Urine pH 6.0, Ur Specific [place] 1.010, Urine Protein Negative, Urine Glucose (UA) Negative, Urine Ketones Negative, Urine Blood Negative, Urine Nitrate Negative, Urine Bilirubin Negative, Urine Urobilinogen 0.2, Ur Leukocyte Esterase Small H, Urine RBC Negative, Urine WBC 0 - 2, Ur Epithelial Cells 1 - 3 - RAD Interpretation Radiology Orders: 11/15/17 18:06 ABD PELVIS PO & IV CONTRAST [CT] Stat 11/15/17 18:54 HEAD W/O CONTRAST [CT] Stat - Medication Orders Current Medication Orders: Acetaminophen (Tylenol 325mg Tab) 650 mg PO Q4H PRN PRN Reason: Pain, Mild (1-3) Ciprofloxacin (Cipro 400mg/200ml Dsw) 400 mg in 200 mls @ 133.3 mls/hr IVPB STAT STA PRN Reason: Protocol Stop: 11/16/17 00:36 Last Admin: 11/16/17 00:01 Dose: 133.3 mls/hr eMAR Start Stop Document 11/16/17 00:01 IT (Rec: 11/16/17 00:01 IT [id number]) Intravenous Solution Start Date 11/16/17 Start Time 00:01 Potassium Chloride 20 meq/ (Dextrose/Sodium Chloride) 1,010 mls @ 70 mls/hr IV .[id number] LACHO Morphine Sulfate (Morphine) 2 mg IVP Q2H PRN PRN Reason: Pain, severe (8-10) Last Admin: 11/16/17 00:28 Dose: 2 mg IVP Administration Document 11/16/17 00:28 IT (Rec: 11/16/17 00:28 IT [id number]) Charges for Administration # of IVP Administrations 1 Oxycodone HCl (Oxycodone Immediate Release Tab) 5 mg PO Q4H PRN PRN Reason: Pain, moderate (4-7) Discontinued Medications Sodium Chloride (Sodium Chloride 0.9%) 1,000 mls @ 999 mls/hr IV .Q1H1M STA Stop: 11/15/17 19:03 Last Admin: 11/15/17 18:55 Dose: 999 mls/hr eMAR Start Stop Document 11/15/17 18:55 OCS (Rec: 11/15/17 18:55 OCS [id number]) Intravenous Solution Start Date 11/15/17 Start Time 18:55 End Date 11/15/17 End time 19:56 Total Infusion Time 61 Metronidazole (Flagyl) 500 mg in 100 mls @ 100 mls/hr IVPB STAT STA PRN Reason: Protocol Stop: 11/16/17 00:05 Morphine Sulfate (Morphine) 2 mg IVP STAT STA Stop: 11/15/17 19:10 Last Admin: 11/15/17 19:25 Dose: 2 mg IVP Administration Document 11/15/17 19:25 OCS (Rec: 11/15/17 19:25 OCS [id number]) Charges for Administration # of IVP Administrations 1 Morphine Sulfate (Morphine) 2 mg IVP STAT STA Stop: 11/15/17 20:33 Last Admin: 11/15/17 20:44 Dose: 2 mg MAR Pain Assessment Document 11/15/17 20:44 OCS (Rec: 11/15/17 20:45 OCS [id number]) Pain Reassessment Is this a pain reassessment? Yes Sleep Is patient sleeping during reassessment? No Presence of Pain Presence of Pain Yes Location Pain Location Body Site Abdomen Description Description Constant Aggravating Factors ADL's IVP Administration Document 11/15/17 20:44 OCS (Rec: 11/15/17 20:45 OCS [id number]) Charges for Administration # of IVP Administrations 1 Morphine Sulfate (Morphine) 2 mg IVP STAT STA Stop: 11/15/17 21:49 Last Admin: 11/15/17 22:18 Dose: 2 mg IVP Administration Document 11/15/17 22:18 IT (Rec: 11/15/17 22:18 IT [id number]) Charges for Administration # of IVP Administrations 1 Disposition/Present on Arrival - Present on Arrival Any Indicators Present on Arrival: No History of DVT/PE: No History of Uncontrolled Diabetes: No Urinary Catheter: No History of Decub. Ulcer: No History Surgical Site Infection Following: None - Disposition Have Diagnosis and Disposition been Completed?: Yes Diagnosis: Abdominal pain, Common bile duct dilatation, Colitis Disposition: HOSPITALIZED Disposition Time: 21:30 Patient Plan: Admission Patient Problems: Current Active Problems Problem Status Onset Colitis Acute Common bile duct dilatation Acute Abdominal pain Chronic Condition: FAIR
[2017-11-15 18:57] LABS: URINE RBC NEGATIVE /hpf (0-2); URINE WBC 0 - 2 /hpf (0-6)
[2017-11-15] MEDS ORDERED: Morphine 2 mg/2 mL syringe IVP STA ×2 (19:09→21:48)
[2017-11-15 19:16] LABS: ALB/GLOB RATIO 1.3 (1.1-1.8); ALBUMIN 3.6 g/dL (3.0-4.8); ALT/SGPT 39 U/L (7-56); AST/SGOT 50 U/L (14-36); BLOOD UREA NITROGEN 4 mg/dL (7-21); CALCIUM 9.1 mg/dL (8.4-10.5); GFR AFRICAN-AMERICAN > 60; GFR NON-AFRICAN AMERICAN > 60; LIPASE 33 U/L (23-300)
[2017-11-15] MEDS ORDERED: Iohexol 350 MG/100 ML VIAL ONE (21:05)
--- NOTE | 2017-11-15 22:25 | CT ---
EXAM: CT Head Without Intravenous Contrast EXAM DATE/TIME: 11/15/2017 6:54 PM CLINICAL HISTORY: 57 years old, female; Pain; Headache TECHNIQUE: Axial computed tomography images of the head/brain without intravenous contrast. All CT scans at this facility use one or more dose reduction techniques, viz.: automated exposure control; ma/kV adjustment per patient size (including targeted exams where dose is matched to indication; i.e. head); or iterative reconstruction technique. Coronal and sagittal reformatted images were created and reviewed. COMPARISON: Prior MRI of the brain of 2016-01-06 FINDINGS: LIMITATIONS: Mild streak/motion artifact. BRAIN: No significant acute abnormality identified. No acute hemorrhage seen within the brain. No acute extra-axial fluid collections visualized. No evidence of significant mass effect within the brain. VENTRICLES: No evidence of significant hydrocephalus. BONES/JOINTS: No acute fractures or other acute bony abnormality noted. SOFT TISSUES: No acute abnormality of the visualized soft tissues is seen. SINUSES: Visualized paranasal sinuses appear clear. MASTOID AIR CELLS: Mastoid air cells appear clear. IMPRESSION: - No acute findings seen within the brain. - See above for remaining findings.
--- NOTE | 2017-11-15 22:49 | CT ---
EXAM: CT Abdomen and Pelvis With Intravenous Contrast EXAM DATE/TIME: 11/15/2017 6:06 PM CLINICAL HISTORY: 57 years old, female; Pain; Abdominal pain; Prior surgery; Surgery type: Llq colostomy; Additional info: Abdominal pain/diarrhea, rectal cancer TECHNIQUE: Axial computed tomography images of the abdomen and pelvis with intravenous contrast. All CT scans at this facility use one or more dose reduction techniques, viz.: automated exposure control; ma/kV adjustment per patient size (including targeted exams where dose is matched to indication; i.e. head); or iterative reconstruction technique. Coronal and sagittal reformatted images were created and reviewed. CONTRAST: 95 mL of OMNI 350 administered intravenously. COMPARISON: Prior CT abdomen and pelvis of 2016-03-19.Report from a prior PET/CT of 08/29/2017. The prior study itself is currently unavailable. FINDINGS: LUNG BASES: Interval development of bilateral pulmonary masses. 3 are seen in the visualized lung bases, the largest, in the right lung base, measuring 4.5 x 3.5 cm. These are highly suspicious for malignancy, most likely pulmonary metastases. This is a known finding, described on the prior PET/CT report. ABDOMEN: LIVER: Fatty infiltration of the liver. No evidence of diffuse liver lesions. GALLBLADDER AND BILE DUCTS: Biliary ductal dilatation, with the common bile duct measuring up to 9 mm in diameter. No cause for this finding is seen by CT. Mildly contracted gallbladder. No CT evidence of acute cholecystitis. PANCREAS: No CT evidence of acute pancreatitis. SPLEEN: No acute abnormality of the spleen identified. ADRENALS: No acute abnormality of the adrenal glands identified. KIDNEYS AND URETERS: Bilateral tiny, nonobstructing renal stones. Incidental fluid density probable cystic right renal lesion, measuring less than 10 mm. Consistent with the [employer]?s Incidental Findings Committee Report, unless the patient?s specific circumstances suggest otherwise, any cystic kidney lesion less than 1.0 cm not otherwise characterized in this report as possessing suspicious or indeterminate imaging features is/are highly likely to be benign and do not require follow-up imaging or biopsy. No acute abnormality of the kidneys identified. STOMACH AND BOWEL: Mild wall thickening of the cecum and ascending colon. This could represent pseudo-wall thickening due to underdistention/incomplete distension versus mild colitis Evidence of previous rectal resection. Sigmoid colostomy in the left anterior pelvis Surgical suture line/surgical anatomosis is noted in the transverse colon. Otherwise, no significant abnormality of the bowel is identified. No evidence of bowel obstruction. Otherwise, no significant abnormality of the bowel is identified. PELVIS: APPENDIX: Appendix is seen, and is within normal limits in appearance. BLADDER: No acute abnormality of the bladder identified. REPRODUCTIVE:No acute abnormality of the reproductive organs is seen. No acute abnormality of the uterus identified. No evidence of large adnexal masses. SUBPERITONEAL SPACE: Low density soft tissue in the posterior pelvis, in the presacral region, with a crescent shaped appearance, and ill-defined margins. This measures 6 x 2 cm maximally. It is mildly decreased in size compared to the prior CT. This most likely represents chronic post radiation/post operative changes changes, given its appearance and location. ABDOMEN and PELVIS: INTRAPERITONEAL SPACE: No evidence of free intraperitoneal air or fluid. BONES/JOINTS: Bony structures appear demineralized. SOFT TISSUES: No acute abnormality of the visualized soft tissues is seen. VASCULATURE: No evidence of abdominal aortic aneurysm. No evidence of periaortic hemorrhage. LYMPH NODES: No evidence of diffuse lymphadenopathy. IMPRESSION: - Underdistention versus wall thickening/mild segmental colitis involving the ascending colon. Recommend clinical correlation. - Mild dilatation of the common bile duct, cause not identified. Recommend correlation with LFTs for laboratory evidence of biliary obstruction. - Otherwise, no evidence of significant acute process. - Bilateral lung masses, compatible with the known pulmonary metastatic lesions. - Presacral soft tissue, most likely representing chronic post radiation/post operative changes. - Post operative changes involving the colon. - See above for remaining findings.
[2017-11-15] MEDS ORDERED: metroNIDAZOLE IV 500 mg/100 ml 500 MG/100 ML BAG IVPB STA (23:06)
[2017-11-15] MEDS ORDERED: Ciprofloxacin 400mg/200ml D5W 400 MG/200 ML BAG IVPB STA (23:06)
[2017-11-15] MEDS ORDERED: oxyCODONE 5 mg Immediate Release Tab PO PRN (23:09)
[2017-11-16] MEDS: Morphine 2 mg/2 mL syringe IVP PRN ×2 (00:28→06:31)
[2017-11-16] MEDS ORDERED: oxyCODONE 15 mg Immediate Release Tab PO STA (02:19)
[2017-11-16] MEDS: Potassium Chloride 20 MEQ in Dextrose 5%/0.45% NS 1,000 ML IV SCH ×2 (02:50→20:34)
[2017-11-16] MEDS ORDERED: Pneumococcal 23-Valent Vaccine IM ONE (03:31)
[2017-11-16 07:53] LABS: BASO # 0.03 K/mm3 (0.0-2.0); BASO % 0.6 % (0.0-3.0); EOS # 0.1 (0.0-0.7); EOS % 2.1 % (1.5-5.0); GRAN # 3.75 (1.4-6.5); LYMPH # 0.9 (1.2-3.4); LYMPH % 17.8 % (22.0-35.0); MEAN CORPUSCULAR HEMOGLOBIN 31.2 pg (25.0-35.0); MEAN CORPUSCULAR HGB CONC 32.8 g/dl (31.0-37.0); MEAN PLATELET VOLUME 9.9 fl (7.0-11.0); MONO # 0.5 (0.1-0.6); MONO % 8.5 % (1.0-6.0); RBC 4.17 10^6/uL (3.5-6.1); RED CELL DISTRIBUTION WIDTH 15.2 % (11.5-14.5); WHITE BLOOD COUNT 5.3 10^3/ul (4.5-11.0)
[2017-11-16 08:13] LABS: ALB/GLOB RATIO 1.2 (1.1-1.8); ALBUMIN 3.3 g/dL (3.0-4.8); ALT/SGPT 30 U/L (7-56); AST/SGOT 37 U/L (14-36); BLOOD UREA NITROGEN 3 mg/dL (7-21); CALCIUM 8.9 mg/dL (8.4-10.5); GFR AFRICAN-AMERICAN > 60; GFR NON-AFRICAN AMERICAN > 60
[2017-11-16] MEDS: oxyCODONE 30 mg Immediate Release Tab PO PRN ×2 (08:50→16:51)
[2017-11-16] MEDS: levoFLOXacin 500 mg in D5W 500 MG/100 ML BAG IVPB SCH (10:33)
[2017-11-16] MEDS ORDERED: Albuterol-Ipratrop 3 mg / 0.5 (3 ml) UD IH PRN (11:39)
[2017-11-16] MEDS: metroNIDAZOLE IV 500 mg/100 ml 500 MG/100 ML BAG IVPB SCH ×2 (13:14→21:35)
[2017-11-16] MEDS: oxyCODONE 15 mg Immediate Release Tab PO PRN ×2 (13:15→20:34)
[2017-11-16] MEDS: Pantoprazole 20 mg EC Tab PO SCH (15:42)
--- NOTE | 2017-11-17 01:18 | CON ---
DATE: 11/16/2017 REASON FOR CONSULTATION: Abdominal pain. HISTORY OF PRESENT ILLNESS: The 57-year-old patient with metastatic colorectal cancer with mets to the lung, on chemotherapy, presents with the episodes of diarrhea and abdominal pain. The symptoms started with the new medication, but the medication was stopped and but still continued to have some abdominal discomfort and more after restarting the medication. Patient had colostomy. No diarrhea now. No bleeding. No vomiting. Denies any fever. PAST MEDICAL HISTORY: Other past medical history is significant as above, colorectal cancer, mets to the lung. Her last colonoscopy was in 2014 no endoscopy. PAST SURGICAL HISTORY: Positive for abdominoperineal resection and colostomy. ALLERGIES: ALLERGIC TO PENICILLIN AND ZOSYN. FAMILY HISTORY: Noncontributory. SOCIAL HISTORY: Ex-smoker. Denies alcohol use. REVIEW OF SYSTEMS: Positive as above. Other systems reviewed, negative. PHYSICAL EXAMINATION: GENERAL: Patient is lying on the bed, not in acute distress. VITAL SIGNS: Temperature is 98.5, blood pressure is 131/76, respirations 20, O2 saturation 95. HEENT: Atraumatic. Anicteric. NECK: Supple. HEART: S1 and S2 heard. LUNGS: Bilateral air entry present. ABDOMEN: Soft. The colostomy present. EXTREMITIES: No cyanosis. No clubbing. LABORATORY DATA: Hemoglobin 13, hematocrit 39.6, WBC 5.3, platelets 279. Chemistry: Alkaline phosphatase is 140. IMPRESSION: This 57-year-old patient with metastatic colorectal cancer on colostomy. Patient started recently on Stivarga, has episodes of diarrhea and abdominal pain. Symptoms are restarting. Patient admitted with worsening of the symptoms. Patient did have a CT scan of the abdomen and pelvis, which was reviewed. Had a patchy colonic thickening mainly in the ascending colon and also small amount of thickening even in the left colon noticed. Suggestive of possible colitis and sigmoid colitis and also ascending colon noticed. Would recommend patient mild dilation of the common bile duct also noticed. Patient has bilateral lung lesions noticed. The likely cause for the colitis is probably secondary to the infectious colitis versus drug-induced. Patient has metastatic colorectal cancer. RECOMMENDATIONS: 1. Start on the liquid diet. 2. Stool cultures and stool for C. diff. 3. We will start the patient on Levaquin 500 mg daily and Flagyl 500 mg every 8 hourly. We will continue to closely follow up her care and her other comorbidities include COPD. Thank you very much for allowing us to participate in the care of the patient. We will continue to closely follow up her care and suggest further management based on the clinical course. Alfredo David MD
--- NOTE | 2017-11-17 02:07 | HP ---
DATE OF EXAM: 11/16/2017 This is Lia Negron's admission history and physical. For Dr. Brooks CHIEF COMPLAINT: Abdominal pain. HISTORY OF PRESENT ILLNESS: The patient is a 57-year-old female with known metastatic rectal carcinoma with severe lower abdominal pain and diarrhea with patient having had recent treatment changes per Dr. Brooks's recommendations with chemotherapy in the office. With this the pain became unbearable despite the patient taking her narcotic analgesics. With this the patient's recommendations as per emergency room personnel was to be admitted for pain management and also for hydration in the interim. Her pain has modestly improved with analgesics, since admission today, she feels little better with the IV fluids and her pain medications being given. PAST MEDICAL HISTORY: For this patient is that metastatic rectal carcinoma stage IV with documented metastasis in the lung and the liver, treated recently with Vectibix and Camptosar, COPD, history of smoking, bilateral lung nodules, history of rectovaginal fistula with colostomy, failure to thrive, poor dentition. PAST SURGICAL HISTORY: Status post abdominoperineal resection with a colostomy. FAMILY HISTORY AND SOCIAL HISTORY: Patient stop smoking approximately two years prior after significant period of time at least 20 years of pack a day. Denies alcohol use. REVIEW OF SYSTEMS: A 12-point review of system was done, which was negative to questioning except for items mentioned in history of present illness. ALLERGIES: FOR THIS PATIENT INCLUDE PIPERACILLIN AND TAZOBACTAM. MEDICATIONS: Include vitamin D, DuoNeb, ferrous sulfate, Flonase, , magnesium oxide, oxycodone, potassium, Protonix, Singulair. PHYSICAL EXAMINATION: VITAL SIGNS: Temperature 98.5, pulse 64, respirations 20, blood pressure 131/76, pulse oximetry 95%. HEENT: Unremarkable except for poor dentition. NECK: Supple. HEART: Regular rate. LUNGS: Rare rhonchi. ABDOMEN: Soft, nontender with a viable colostomy. EXTREMITIES: No edema. SKIN: Warm and dry. NEUROLOGIC: Awake, alert, oriented x3. LABORATORY DATA: The patient's labs were done. White blood cell count of 5.3, hemoglobin 13, hematocrit 39.6, platelet count of 276,000 with a chem metabolic panel showing a BUN of 3, creatinine 0.4, AST of 37, alk phos is 140. Urinalysis shows small amount of leukocyte esterase. Stool for occult blood was negative. DIAGNOSTIC DATA: The patient did have a CAT scan of her abdomen and pelvis done yesterday. The CAT scan showed under distention versus wall thickening with mild segmental colitis involving the ascending colon, recommend clinical correlation, mild dilatation of common bile duct. Recommend LFTs , otherwise no significant acute process. Bilateral lung masses compatible with no pulmonary metastatic lesions, presacral soft tissue likely representing chronic plus radiation operative changes, post operative change involving the colon. ASSESSMENT: For this patient is that of acute colitis, history of stage IV colorectal carcinoma with documented metastasis in the lung and liver, chronic obstructive pulmonary disease, history of smoking, failure to thrive. PLAN: For this patient after conversation with Dr. Brooks is to have a consult with Dr. David GI for her colitis with the antibiotics to be begun and also consult Dr. Mcmahon, her filter cloth maker with continuation of her present medical regimen. We will add Cipro and Flagyl with morphine for her pain versus oxycodone with Protonix and Singulair to continue with nebulizer treatments. IV fluids will also be given in the interim. We will monitor clinically with labs with a clear liquid diet for now. The prognosis for this patient is guarded. This is a complex patient with a comprehensive medical and necessary and appropriate visit carried out in excess of 50 minutes in [id number] time discussions were held with the consulting doctors for this patient also the emergency room personnel and with the patient's family. Her questions were answered to her satisfaction. Carter Alvarez MD
[2017-11-17] MEDS: oxyCODONE 15 mg Immediate Release Tab PO PRN ×3 (05:18→23:19)
[2017-11-17] MEDS: metroNIDAZOLE IV 500 mg/100 ml 500 MG/100 ML BAG IVPB SCH ×2 (05:18→22:01)
[2017-11-17] MEDS: Pantoprazole 20 mg EC Tab PO SCH ×2 (05:18→17:28)
[2017-11-17 06:42] LABS: BASO # 0.02 K/mm3 (0.0-2.0); BASO % 0.5 % (0.0-3.0); EOS # 0.2 (0.0-0.7); EOS % 5.4 % (1.5-5.0); GRAN # 2.89 (1.4-6.5); LYMPH # 0.7 (1.2-3.4); LYMPH % 16.7 % (22.0-35.0); MEAN CELL VOLUME 97.1 fl (80.0-105.0); MEAN CORPUSCULAR HEMOGLOBIN 31.6 pg (25.0-35.0); MEAN CORPUSCULAR HGB CONC 32.6 g/dl (31.0-37.0); MEAN PLATELET VOLUME 9.6 fl (7.0-11.0); MONO # 0.6 (0.1-0.6); MONO % 12.4 % (1.0-6.0); RBC 4.11 10^6/uL (3.5-6.1); RED CELL DISTRIBUTION WIDTH 14.9 % (11.5-14.5); WHITE BLOOD COUNT 4.4 10^3/ul (4.5-11.0)
[2017-11-17 06:56] LABS: INR 1.31 (0.93-1.08); PROTHROMBIN TIME 15.1 SECONDS (9.4-12.5)
[2017-11-17 07:10] LABS: ALB/GLOB RATIO 1.1 (1.1-1.8); ALBUMIN 2.9 g/dL (3.0-4.8); ALT/SGPT 28 U/L (7-56); AST/SGOT 28 U/L (14-36); BLOOD UREA NITROGEN 2 mg/dL (7-21); CALCIUM 8.7 mg/dL (8.4-10.5); GFR AFRICAN-AMERICAN > 60; GFR NON-AFRICAN AMERICAN > 60
[2017-11-17] MEDS: Arformoterol 15 mcg/2 ml Inh Sol IH SCH ×2 (07:35→20:50)
[2017-11-17] MEDS: Budesonide 0.5 mg/2 ml Inhal Susp UD IH SCH ×2 (07:35→20:50)
--- NOTE | 2017-11-17 08:42 | PN ---
DATE: 11/16/2017 PULMONARY PROGRESS NOTE REFERRING PHYSICIAN: Carter Alvarez MD REASON FOR CONSULT: Chronic obstructive lung disease and metastatic cancer to the lungs. HISTORY OF PRESENT ILLNESS: This is a 57-year-old female known to me from previous admission, has a known metastatic disease, has a rectal carcinoma with extensive mets to the lungs, chronic obstructive lung disease, history of radiation therapy, laparotomy and colostomy, been on chemotherapy, comes into emergency room with cough and shortness of breath, also abdominal pain with diarrhea. No hemoptysis or emesis. No hematuria. No diarrhea reported. PAST MEDICAL HISTORY: Rectal carcinoma with metastatic disease to the lungs, been on radiation therapy as laparotomy, colostomy, had a chemotherapy. ALLERGIES: TO PIPERACILLIN AND TAZOBACTAM. SOCIAL HISTORY: Recently stopped smoking. Denies any alcohol use. FAMILY HISTORY: No significant cardiopulmonary disease reported. MEDICATIONS: She is on DuoNeb every 4 hours p.r.n.; Flagyl 500 mg every 8 hours; Levaquin 500 mg daily; oxycodone immediate release 50 mg every 4 hours p.r.n., oxycodone immediate release 30 mg every 6 hours p.r.n. for severe pain; potassium supplement with fluid; Protonix 20 mg twice a day; Singulair 10 mg daily; Tylenol p.r.n.; and Zofran p.r.n. REVIEW OF SYSTEMS: No headache. No rhinitis. Has a cough, shortness of breath. No chest pain. No nausea and abdominal pain, diarrhea. No leg pain or leg swelling. PHYSIC AL EXAMINATION: GENERAL: Sitting up in a chair, in no acute distress. VITAL SIGNS: Temperature is 98, heart rate 71, respiratory rate is 18, blood pressure 127/82, pulse ox 96% on room air. HEENT: Moist mucous membrane. Crowded airway. NECK: Supple. No JVD. LUNGS: Has scattered rhonchi, prolonged expiratory phase. HEART: S1 and S2. ABDOMEN: Soft, have mild tenderness. Colostomy bag working well. EXTREMITIES: There is no edema. NEUROLOGIC: Awake and alert. Follows simple commands. LABORATORY DATA: Shows hemoglobin 13, hematocrit 39.6, WBC 5.3, platelet count is 279. Sodium 140, potassium 3.8, chloride 105, bicarbonate 26, BUN 3, creatinine 0.4, glucose 89, calcium 8.9, total bili 0.9, AST 37, ALT 30, alk phos is 140, albumin is 3.3. Microbiology, blood culture has been negative. DIAGNOSTIC STUDIES: CAT scan of the head is done, which shows no acute finding. Had a CT of the abdomen and pelvis done which suggest of thickening/mild segmental colitis involving the ascending colon. Mild dilatation of the common bile duct, bilateral lung masses resected with soft tissue changes probably secondary to radiation therapy. IMPRESSION AND PLAN: History of rectal cancer requiring radiation therapy, had a laparotomy status post colostomy, been on chemotherapy, has a colitis with abdominal pain and diarrhea, also extensive metastases to the lungs, chronic obstructive lung disease, being smoking up to recently, agree with Dr. Carter Alvarez with the present management. Continue inhaled bronchodilator. Keep head at 45 degrees and stool for C. diff toxin, pain management, fall precaution. Thank you and we will follow with you. Baldemar Mcmahon MD
[2017-11-17] MEDS: oxyCODONE 30 mg Immediate Release Tab PO PRN ×3 (09:33→18:31)
[2017-11-17] MEDS: levoFLOXacin 500 mg in D5W 500 MG/100 ML BAG IVPB SCH (09:35)
[2017-11-17] MEDS ORDERED: Albuterol-Ipratrop 3 mg / 0.5 (3 ml) UD IH PRN (14:15)
[2017-11-17] MEDS: Potassium Chloride 20 MEQ in Dextrose 5%/0.45% NS 1,000 ML IV SCH (14:30)
--- NOTE | 2017-11-17 15:04 | PN ---
DATE: 11/17/2017 PULMONARY PROGRESS NOTE REFERRING PHYSICIAN: Carter Alvarez MD. SUBJECTIVE: She is standing on side of the bed. Night was unremarkable. Abdominal pain is better. Wants regular food. No cough. No sputum production. No nausea. No vomiting. Denying any diarrhea. No leg pain or leg swelling. OBJECTIVE: GENERAL: In no acute distress. VITAL SIGNS: Temperature is 99, heart rate is 70, respiratory rate is 18, blood pressure 112/74, pulse ox 96% on room air. HEENT: Moist mucous membrane. No ulcer or thrush noted. NECK: Supple. No JVD. LUNGS: Have a fair airflow with rhonchi. HEART: S1 and S2. ABDOMEN: Positive bowel sounds. Mild tenderness. Colostomy bag working well. EXTREMITIES: There is no edema. NEUROLOGICAL: Awake and alert. Follows simple command. LABORATORY DATA: Reviewed and shows hemoglobin 13, hematocrit 39.9, WBC 4.4, platelet is 203. INR 1.31. Sodium , potassium 3.7, chloride 108, bicarbonate 25, BUN 2, creatinine 0.4, glucose 90, calcium is 8.7, AST 28, ALT 28, alk phos is 114, albumin is 2.9. Microbiology: Blood culture, urine culture, there is no growth. MEDICATIONS: She is on Brovana inhaled twice a day, DuoNeb every 6 hours p.r.n., Flagyl 500 mg every 8 hours, Levaquin 500 mg daily, oxycodone immediate release 15 mg every 4 hours p.r.n. and oxycodone immediate release tab is 30 mg every 6 hours for severe pain, potassium supplement is being giving with IV fluid, Protonix 20 mg twice a day, Pulmicort inhaled twice a day, Singulair 10 mg daily, Tylenol p.r.n., Zofran p.r.n. IMPRESSION AND PLAN: History of rectal cancer requiring radiation and chemotherapy, status post laparotomy, colostomy. Admitted with colitis, chronic obstructive lung disease. Has a carcinoma metastatic disease to lungs. Continue bronchodilator. Keep head at 45 degrees. Continue antibiotics. Gastroenterology followup. Stool for Clostridium difficile still pending. Thank you and we will follow with you. Baldemar Mcmahon MD
--- NOTE | 2017-11-17 18:12 | PN ---
DATE: 11/17/2017 This is [facility] visit on the medical floor. For Dr. Brooks. SUBJECTIVE: The patient is a 57-year-old female known to suffer from metastatic rectal carcinoma with colostomy with severe abdominal pain with the patient now noted to have colitis, being treated with IV antibiotics with good effect. She is otherwise reporting her pain is now improved. However, she is on clear liquids, IV fluids and analgesics as per Dr. David's recommendation. She also suffers from COPD and is in no acute distress in this visit. PHYSICAL EXAMINATION: VITAL SIGNS: Temperature 99.7, pulse 70, respirations 19, blood pressure 112/74, pulse oximetry 96%. HEENT: Unremarkable except for poor dentition. NECK: Supple. HEART: Regular rate. LUNGS: Occasional rhonchi. ABDOMEN: Soft, minimal tenderness to gentle palpation with colostomy via left lower quadrant, viable. EXTREMITIES: No edema. SKIN: Warm and dry. NEUROLOGIC: Awake and alert. LABORATORY DATA: The patient's labs were done. White blood cell count of 4.4, hemoglobin 13, hematocrit of 39.9, platelet count 203,000. Chem metabolic panel within normal range. Her INR is 1.31. Urinalysis has small amount of leukocyte esterase. Stool for occult blood was negative. ASSESSMENT: Colitis, stage IV metastatic colorectal cancer with colostomy, chronic obstructive pulmonary disease, intractable pain of cancer, diarrhea. PLAN: To continue present medical regimen as per consultants recommendations. The patient recently was treated with Stivarga, as per Dr. Brooks's protocol for her as chemotherapy with this now being held for the time being. We will continue IV fluids, monitor clinically with labs. Prognosis for this patient is guarded. This is a complex patient with a comprehensive medically necessary and appropriate visit carried out in excess of 20 minutes with the patient's testing reviewed and discussed with the patient along with the conversation with Dr. David, gastrointestinal field technical support consultant regarding her care. Her questions were answered to her satisfaction. Carter Alvarez MD
[2017-11-18] MEDS: metroNIDAZOLE IV 500 mg/100 ml 500 MG/100 ML BAG IVPB SCH ×3 (05:14→22:01)
[2017-11-18] MEDS: Pantoprazole 20 mg EC Tab PO SCH ×2 (05:15→15:24)
[2017-11-18] MEDS: oxyCODONE 30 mg Immediate Release Tab PO PRN ×3 (05:15→23:12)
[2017-11-18] MEDS: Potassium Chloride 20 MEQ in Dextrose 5%/0.45% NS 1,000 ML IV SCH ×2 (05:16→23:11)
[2017-11-18 06:41] LABS: BASO # 0.01 K/mm3 (0.0-2.0); BASO % 0.2 % (0.0-3.0); EOS # 0.2 (0.0-0.7); EOS % 3.2 % (1.5-5.0); GRAN # 3.72 (1.4-6.5); GRAN % 74.1 % (50.0-68.0); HEMOGLOBIN 12.5 g/dL (12.0-16.0); LYMPH # 0.7 (1.2-3.4); LYMPH % 13.3 % (22.0-35.0); MEAN CELL VOLUME 96.5 fl (80.0-105.0); MEAN CORPUSCULAR HEMOGLOBIN 31.3 pg (25.0-35.0); MEAN CORPUSCULAR HGB CONC 32.5 g/dl (31.0-37.0); MONO # 0.5 (0.1-0.6); MONO % 9.2 % (1.0-6.0); RBC 3.99 10^6/uL (3.5-6.1); RED CELL DISTRIBUTION WIDTH 14.9 % (11.5-14.5)
[2017-11-18 06:53] LABS: ALB/GLOB RATIO 1.1 (1.1-1.8); ALT/SGPT 22 U/L (7-56); AST/SGOT 30 U/L (14-36); BLOOD UREA NITROGEN < 2 mg/dL (7-21); CALCIUM 8.5 mg/dL (8.4-10.5); GFR AFRICAN-AMERICAN > 60; GFR NON-AFRICAN AMERICAN > 60
[2017-11-18] MEDS: Budesonide 0.5 mg/2 ml Inhal Susp UD IH SCH ×2 (07:44→19:55)
[2017-11-18] MEDS: Arformoterol 15 mcg/2 ml Inh Sol IH SCH ×2 (07:44→19:55)
[2017-11-18] MEDS: levoFLOXacin 500 mg in D5W 500 MG/100 ML BAG IVPB SCH (10:22)
--- NOTE | 2017-11-18 13:38 | CP.PCM.PN ---
Subjective - Date & Time of Evaluation Date of Evaluation: 11/18/17 Time of Evaluation: 10:00 - Subjective Subjective: Heme Onc Progress Note for Dr. Brooks Patient was seen and examined at bedside. Patient has mild complaints of abdominal pain and has noted she had to change her colostomy three times this morning as there was loose watery movements filling the bag. As per nursing staff, pt reported abdominal pain overnight and received analgesics with good effect. Patient tolerating CLD. and IV abx. patient noted her abdominal pain overall has improved. Patient denied fever, chills, shortness of breath chest pains, nausea, vomiting, or dysuria. Objective - Vital Signs/Intake and Output Vital Signs (last 24 hours): Temp Pulse Resp BP Pulse Ox 98.1 F 71 18 115/69 95 11/18/17 07:41 11/18/17 07:41 11/18/17 07:41 11/18/17 07:41 11/18/17 07:41 Intake and Output: 11/18/17 11/18/17 06:59 18:59 Intake Total 900 240 Output Total 30 Balance 900 210 - Medications Medications: Current Medications Acetaminophen (Tylenol 325mg Tab) 650 mg PO Q4H PRN PRN Reason: Pain, Mild (1-3) Albuterol/Ipratropium (Duoneb 3 Mg/0.5 Mg (3 Ml) Ud) 3 ml IH [id number] PRN PRN Reason: Shortness of Breath Arformoterol Tartrate (Brovana) 15 mcg IH [id number] [facility] Last Admin: 11/18/17 07:44 Dose: 15 mcg Budesonide (Pulmicort Respules) 0.5 mg IH [id number] [facility] Last Admin: 11/18/17 07:44 Dose: 0.5 mg Potassium Chloride 20 meq/ (Dextrose/Sodium Chloride) 1,010 mls @ 70 mls/hr IV .[id number] [facility] Last Admin: 11/18/17 05:16 Dose: 70 mls/hr Levofloxacin/Dextrose (Levaquin 500mg) 500 mg in 100 mls @ 100 mls/hr IVPB DAILY [facility] PRN Reason: Protocol Last Admin: 11/18/17 10:22 Dose: 100 mls/hr Metronidazole (Flagyl) 500 mg in 100 mls @ 100 mls/hr IVPB Q8 [facility] PRN Reason: Protocol Last Admin: 11/18/17 05:14 Dose: 100 mls/hr Montelukast Sodium (Singulair) 10 mg PO DAILY [facility] Last Admin: 11/18/17 10:23 Dose: 10 mg Ondansetron HCl (Zofran Inj) 4 mg IVP Q6H PRN PRN Reason: Nausea/Vomiting Oxycodone HCl (Oxycodone Immediate Release Tab) 15 mg PO Q4H PRN PRN Reason: Pain, moderate (4-7) Last Admin: 11/17/17 23:19 Dose: 15 mg Oxycodone HCl (Oxycodone Immediate Release Tab) 30 mg PO Q6H PRN PRN Reason: Pain, severe (8-10) Last Admin: 11/18/17 10:39 Dose: 30 mg Pantoprazole Sodium (Protonix Ec Tab) 20 mg PO 0600,1600 [facility] Last Admin: 11/18/17 05:15 Dose: 20 mg - Labs Labs: 11/18/17 05:45 11/18/17 05:45 PT 15.1 SECONDS (9.4-12.5) H 11/17/17 06:30 INR 1.31 (0.93-1.08) H 11/17/17 06:30 - Constitutional Appears: Chronically Ill - Head Exam Head Exam: ATRAUMATIC, NORMAL INSPECTION, NORMOCEPHALIC - ENT Exam ENT Exam: Mucous Membranes Dry - Respiratory Exam Respiratory Exam: Clear to Ausculation Bilateral, NORMAL BREATHING PATTERN - Cardiovascular Exam Cardiovascular Exam: REGULAR RHYTHM, +S1, +S2. absent: Murmur - GI/Abdominal Exam GI & Abdominal Exam: Soft, Tenderness (diffuse), Normal Bowel Sounds - Neurological Exam Neurological Exam: Alert, Awake, CN II-XII Intact, Normal Gait, Oriented x3 - Psychiatric Exam Psychiatric exam: Normal Affect, Normal Mood - Skin Skin Exam: Dry, Intact, Normal Color, Warm Assessment and Plan - Assessment and Plan (Free Text) Assessment: 57 F with a PMHx of COPD, and stage 4 metastatic colon ca with colostomy admitted for intractable abdominal pain found to have colitis on IV abx levofloxacin and flagyl, with improved abdominal pain, however still reporting diarrhea. GI, Dr. David and Pulm Dr. Mcmahon following the patient. Continue IV fluids, monitor clinical labs. Patient was recently treated with Stivarga, which is on hold currently, patient had an appointment today, will be rescheduled.
--- NOTE | 2017-11-18 14:19 | CP.PCM.PN ---
<Idania King - Last Filed: 11/18/17 14:18> Subjective - Date & Time of Evaluation Date of Evaluation: 11/18/17 Time of Evaluation: 11:45 - Subjective Subjective: Seen and examined at the bedside earlier today, chart review. Patient abdominal pain intermittent in an slightly better on pain scale 7 out of 10. She does complain of feeling bloated but better. No nausea or vomiting. Reports that there is a slight increase in stool output, changed to a little more frequently this morning but no reports of bleeding. Stool for C. difficile done and was negative. No acute overnight events reported. Objective - Vital Signs/Intake and Output Vital Signs (last 24 hours): Temp Pulse Resp BP Pulse Ox 98.1 F 71 18 115/69 95 11/18/17 07:41 11/18/17 07:41 11/18/17 07:41 11/18/17 07:41 11/18/17 07:41 Intake and Output: 11/18/17 11/18/17 06:59 18:59 Intake Total 900 1080 Output Total 30 Balance 900 1050 - Medications Medications: Current Medications Acetaminophen (Tylenol 325mg Tab) 650 mg PO Q4H PRN PRN Reason: Pain, Mild (1-3) Albuterol/Ipratropium (Duoneb 3 Mg/0.5 Mg (3 Ml) Ud) 3 ml IH [id number] PRN PRN Reason: Shortness of Breath Arformoterol Tartrate (Brovana) 15 mcg IH [id number] [facility] Last Admin: 11/18/17 07:44 Dose: 15 mcg Budesonide (Pulmicort Respules) 0.5 mg IH [id number] [facility] Last Admin: 11/18/17 07:44 Dose: 0.5 mg Potassium Chloride 20 meq/ (Dextrose/Sodium Chloride) 1,010 mls @ 70 mls/hr IV .[id number] [facility] Last Admin: 11/18/17 05:16 Dose: 70 mls/hr Levofloxacin/Dextrose (Levaquin 500mg) 500 mg in 100 mls @ 100 mls/hr IVPB DAILY [facility] PRN Reason: Protocol Last Admin: 11/18/17 10:22 Dose: 100 mls/hr Metronidazole (Flagyl) 500 mg in 100 mls @ 100 mls/hr IVPB Q8 [facility] PRN Reason: Protocol Last Admin: 11/18/17 05:14 Dose: 100 mls/hr Montelukast Sodium (Singulair) 10 mg PO DAILY [facility] Last Admin: 11/18/17 10:23 Dose: 10 mg Ondansetron HCl (Zofran Inj) 4 mg IVP Q6H PRN PRN Reason: Nausea/Vomiting Oxycodone HCl (Oxycodone Immediate Release Tab) 15 mg PO Q4H PRN PRN Reason: Pain, moderate (4-7) Last Admin: 11/17/17 23:19 Dose: 15 mg Oxycodone HCl (Oxycodone Immediate Release Tab) 30 mg PO Q6H PRN PRN Reason: Pain, severe (8-10) Last Admin: 11/18/17 10:39 Dose: 30 mg Pantoprazole Sodium (Protonix Ec Tab) 20 mg PO 0600,1600 [facility] Last Admin: 11/18/17 05:15 Dose: 20 mg - Labs Labs: 11/18/17 05:45 11/18/17 05:45 PT 15.1 SECONDS (9.4-12.5) H 11/17/17 06:30 INR 1.31 (0.93-1.08) H 11/17/17 06:30 - Constitutional Appears: No Acute Distress - Eye Exam Eye Exam: Normal appearance. absent: Scleral icterus - ENT Exam ENT Exam: Mucous Membranes Moist - Neck Exam Neck Exam: Normal Inspection - Respiratory Exam Respiratory Exam: NORMAL BREATHING PATTERN. absent: Respiratory Distress - Cardiovascular Exam Cardiovascular Exam: +S1, +S2 - GI/Abdominal Exam GI & Abdominal Exam: Soft, Tenderness, Normal Bowel Sounds. absent: Guarding, Organomegaly, Rebound Additional comments: positive colostomy with dark brown stool, stoma appears pink and healthy - Extremities Exam Extremities Exam: absent: Calf Tenderness, Pedal Edema - Neurological Exam Neurological Exam: Alert, Awake, Oriented x3 Assessment and Plan - Assessment and Plan (Free Text) Assessment: Assessment: Abdominal pain, status post CT scan, findings suggestive of colitis, infectious versus drug induced Metastatic colorectal cancer with metastasis to the long on chemotherapy ( Strivaga) History of COPD Plan: Advance diet to soft low residual diet as tolerated C. difficile negative Continue antibiotics: Flagyl and Levaquin Continue PPI Patient out of bed Pain management Seen and discussed with Dr. David <Alfredo David V - Last Filed: 11/18/17 22:11> Objective - Vital Signs/Intake and Output Vital Signs (last 24 hours): Temp Pulse Resp BP Pulse Ox 98.8 F 73 19 92/61 L 97 11/18/17 18:00 11/18/17 18:00 11/18/17 18:00 11/18/17 18:00 11/18/17 18:00 Intake and Output: 11/18/17 11/19/17 18:59 06:59 Intake Total 1080 Output Total 30 Balance 1050 - Medications Medications: Current Medications Acetaminophen (Tylenol 325mg Tab) 650 mg PO Q4H PRN PRN Reason: Pain, Mild (1-3) Albuterol/Ipratropium (Duoneb 3 Mg/0.5 Mg (3 Ml) Ud) 3 ml IH [id number] PRN PRN Reason: Shortness of Breath Arformoterol Tartrate (Brovana) 15 mcg IH [id number] [facility] Last Admin: 11/18/17 19:55 Dose: 15 mcg Budesonide (Pulmicort Respules) 0.5 mg IH [id number] [facility] Last Admin: 11/18/17 19:55 Dose: 0.5 mg Potassium Chloride 20 meq/ (Dextrose/Sodium Chloride) 1,010 mls @ 70 mls/hr IV .[id number] [facility] Last Admin: 11/18/17 05:16 Dose: 70 mls/hr Levofloxacin/Dextrose (Levaquin 500mg) 500 mg in 100 mls @ 100 mls/hr IVPB DAILY [facility] PRN Reason: Protocol Last Admin: 11/18/17 10:22 Dose: 100 mls/hr Metronidazole (Flagyl) 500 mg in 100 mls @ 100 mls/hr IVPB Q8 [facility] PRN Reason: Protocol Last Admin: 11/18/17 22:01 Dose: 100 mls/hr Montelukast Sodium (Singulair) 10 mg PO DAILY [facility] Last Admin: 11/18/17 10:23 Dose: 10 mg Ondansetron HCl (Zofran Inj) 4 mg IVP Q6H PRN PRN Reason: Nausea/Vomiting Oxycodone HCl (Oxycodone Immediate Release Tab) 15 mg PO Q4H PRN PRN Reason: Pain, moderate (4-7) Last Admin: 11/18/17 19:51 Dose: 15 mg Oxycodone HCl (Oxycodone Immediate Release Tab) 30 mg PO Q6H PRN PRN Reason: Pain, severe (8-10) Last Admin: 11/18/17 10:39 Dose: 30 mg Pantoprazole Sodium (Protonix Ec Tab) 20 mg PO 0600,1600 [facility] Last Admin: 11/18/17 15:24 Dose: 20 mg - Labs Labs: 11/18/17 05:45 11/18/17 05:45 PT 15.1 SECONDS (9.4-12.5) H 11/17/17 06:30 INR 1.31 (0.93-1.08) H 11/17/17 06:30 Attending/Attestation - Attestation I have personally seen and examined this patient.: Yes I have fully participated in the care of the patient.: Yes I have reviewed all pertinent clinical information, including history, physical exam and plan: Yes Notes (Text): This is an addendum to GI progress report dictated by Idania King APN.The patient was seen and examined earlier. Medical records, lab studies, imagings were reviewed. Last 24 hours events reviewed. Agreed with the above treatment plan as outlined in Idania King APN's notes with the addition of the following still complains of diarrhea but lessMR On Levaquin and Flagyl Nonspecific colitis versus gastroenteritis follow-up culture Advance to low residue diet to ft diet 11/18/17 22:09
[2017-11-18] MEDS: oxyCODONE 15 mg Immediate Release Tab PO PRN ×2 (15:19→19:51)
--- NOTE | 2017-11-19 02:06 | PN ---
DATE: 11/18/2017 PULMONARY PROGRESS NOTE REFERRING PHYSICIAN: Carter Alvarez MD. SUBJECTIVE: The patient is sitting on side of the bed. Night was unremarkable. Feels better. No headache. No rhinitis. No cough. No sputum production. Still has mild abdominal pain and loose stool. No leg pain or leg swelling. OBJECTIVE: GENERAL: In no acute distress. VITAL SIGNS: Temperature is 98, heart rate 73, respiratory rate is 20, blood pressure 92/61, pulse ox of 97% on room air. HEENT: Moist mucous membranes. Crowded airway. NECK: Supple. No JVD. LUNGS: Have a fair airflow with few rhonchi. HEART: S1 and S2. ABDOMEN: Soft, nontender. No organomegaly. G-tube area looks okay. Mild abdominal tenderness, though. EXTREMITIES: There is no edema. NEUROLOGICAL: Awake and alert. Follows simple command. MEDICATIONS: She is on Brovana inhaled twice a day, DuoNeb every 6 hours p.r.n., Flagyl 500 mg every 8 hours, Levaquin 500 mg daily, oxycodone immediate release 50 mg every 4 hours p.r.n., oxycodone immediate release every 6 hours p.r.n. that is 30 mg for severe pain, potassium with IV fluid 70 mL/hour, Protonix 20 mg twice a day, Pulmicort inhaled twice a day, Singulair 10 mg daily, Tylenol p.r.n. basis, Zofran p.r.n. basis. LABORATORY DATA: Shows hemoglobin 12.5, hematocrit 38.5, WBC 5, platelet count is 200. Sodium 140, potassium 4, chloride 107, bicarbonate 25, BUN is less than 2, creatinine 0.4, glucose 94, calcium is 8.5, AST 30, ALT 22, alk phos is 110, albumin is 3. Microbiology: Stool for C. diff is negative. Blood culture has been negative. IMPRESSION AND PLAN: Rectal carcinoma requiring radiation and chemotherapy, status post laparotomy and colostomy, has a colitis, chronic obstructive lung disease, has a carcinoma metastatic disease to the lung. Pulmonary point of view, she is doing okay. Continue bronchodilator. Being followed by Gastroenterology. May need p.r.n. Imodium if this is colitis secondary to chemotherapy. Thank you and we will follow with you. Baldemar Mcmahon MD [facility] # [id number]
[2017-11-19] MEDS: metroNIDAZOLE IV 500 mg/100 ml 500 MG/100 ML BAG IVPB SCH ×3 (05:50→21:41)
[2017-11-19] MEDS: oxyCODONE 15 mg Immediate Release Tab PO PRN ×2 (05:52→16:29)
[2017-11-19] MEDS: Budesonide 0.5 mg/2 ml Inhal Susp UD IH SCH ×2 (07:45→20:13)
[2017-11-19] MEDS: Arformoterol 15 mcg/2 ml Inh Sol IH SCH ×2 (07:45→20:13)
[2017-11-19] MEDS: oxyCODONE 30 mg Immediate Release Tab PO PRN ×2 (10:40→22:16)
--- NOTE | 2017-11-19 11:28 | CP.PCM.PN ---
<Rupali Rankin - Last Filed: 11/19/17 17:18> Subjective - Date & Time of Evaluation Date of Evaluation: 11/19/17 Time of Evaluation: 10:00 - Subjective Subjective: PGY-[address] David's service Patient was seen and examined at bedside. No acute distress. Patient state that he is feeling better. Patient reports that abdominal pain has improved and is intermittent. No nausea or vomiting. Reports that she continues to have liquided stool stool output from ostomy. no reports of bleeding. Stool for C. difficile done and was negative. chart review. Objective - Vital Signs/Intake and Output Vital Signs (last 24 hours): Temp Pulse Resp BP Pulse Ox 99.2 F 67 20 117/73 96 11/19/17 06:00 11/19/17 06:00 11/19/17 06:00 11/19/17 06:00 11/19/17 06:00 Intake and Output: 11/19/17 11/19/17 06:59 18:59 Intake Total 240 Balance 240 - Medications Medications: Current Medications Acetaminophen (Tylenol 325mg Tab) 650 mg PO Q4H PRN PRN Reason: Pain, Mild (1-3) Albuterol/Ipratropium (Duoneb 3 Mg/0.5 Mg (3 Ml) Ud) 3 ml IH [id number] PRN PRN Reason: Shortness of Breath Arformoterol Tartrate (Brovana) 15 mcg IH [id number] [facility] Last Admin: 11/19/17 07:45 Dose: 15 mcg Budesonide (Pulmicort Respules) 0.5 mg IH [id number] [facility] Last Admin: 11/19/17 07:45 Dose: 0.5 mg Potassium Chloride 20 meq/ (Dextrose/Sodium Chloride) 1,010 mls @ 70 mls/hr IV .[id number] [facility] Last Admin: 11/18/17 23:11 Dose: 70 mls/hr Metronidazole (Flagyl) 500 mg in 100 mls @ 100 mls/hr IVPB Q8 [facility] PRN Reason: Protocol Last Admin: 11/19/17 05:50 Dose: 100 mls/hr Montelukast Sodium (Singulair) 10 mg PO DAILY [facility] Last Admin: 11/19/17 10:40 Dose: 10 mg Ondansetron HCl (Zofran Inj) 4 mg IVP Q6H PRN PRN Reason: Nausea/Vomiting Oxycodone HCl (Oxycodone Immediate Release Tab) 15 mg PO Q4H PRN PRN Reason: Pain, moderate (4-7) Last Admin: 11/19/17 05:52 Dose: 15 mg Oxycodone HCl (Oxycodone Immediate Release Tab) 30 mg PO Q6H PRN PRN Reason: Pain, severe (8-10) Last Admin: 11/19/17 10:40 Dose: 30 mg Pantoprazole Sodium (Protonix Ec Tab) 20 mg PO 0600,1600 [facility] Last Admin: 11/18/17 15:24 Dose: 20 mg - Labs Labs: 11/18/17 05:45 11/18/17 05:45 PT 15.1 SECONDS (9.4-12.5) H 11/17/17 06:30 INR 1.31 (0.93-1.08) H 11/17/17 06:30 - Constitutional Appears: Well, No Acute Distress - Head Exam Head Exam: ATRAUMATIC, NORMAL INSPECTION, NORMOCEPHALIC Additional comments: poor dental hygiene - Eye Exam Eye Exam: EOMI, Normal appearance - ENT Exam ENT Exam: Mucous Membranes Moist - Respiratory Exam Respiratory Exam: Clear to Ausculation Bilateral, NORMAL BREATHING PATTERN. absent: Rhonchi, Wheezes, Respiratory Distress - Cardiovascular Exam Cardiovascular Exam: REGULAR RHYTHM - GI/Abdominal Exam GI & Abdominal Exam: Soft, Normal Bowel Sounds. absent: Distended, Firm, Guarding, Tenderness - Extremities Exam Extremities Exam: Normal Inspection. absent: Pedal Edema, Tenderness - Neurological Exam Neurological Exam: Alert, Awake, Oriented x3 - Skin Skin Exam: Dry, Intact, Normal Color, Warm Assessment and Plan - Assessment and Plan (Free Text) Assessment: Abdominal pain, status post CT scan, findings suggestive of colitis, infectious versus drug induced Metastatic colorectal cancer with metastasis to the long on chemotherapy ( Strivaga) History of COPD Plan: Nonspecific colitis versus gastroenteritis stool cultures negative, blood and urine cultures negative C. difficile negative patient continues to have crampy abd pain consider purred diet however patient states that she wants to cont soft low residual diet cont abx flagyl and levaquin Continue PPI Patient out of bed Pain management Seen and discussed with Dr. David <Alfredo David V - Last Filed: 11/19/17 23:22> Objective - Vital Signs/Intake and Output Vital Signs (last 24 hours): Temp Pulse Resp BP Pulse Ox 98.5 F 60 19 112/70 97 11/19/17 16:47 11/19/17 16:47 11/19/17 16:47 11/19/17 16:47 11/19/17 16:47 Intake and Output: 11/19/17 11/20/17 18:59 06:59 Intake Total 1080 Balance 1080 - Medications Medications: Current Medications Acetaminophen (Tylenol 325mg Tab) 650 mg PO Q4H PRN PRN Reason: Pain, Mild (1-3) Albuterol/Ipratropium (Duoneb 3 Mg/0.5 Mg (3 Ml) Ud) 3 ml IH [id number] PRN PRN Reason: Shortness of Breath Arformoterol Tartrate (Brovana) 15 mcg IH [id number] [facility] Last Admin: 11/19/17 20:13 Dose: 15 mcg Budesonide (Pulmicort Respules) 0.5 mg IH [id number] [facility] Last Admin: 11/19/17 20:13 Dose: 0.5 mg Potassium Chloride 20 meq/ (Dextrose/Sodium Chloride) 1,010 mls @ 70 mls/hr IV .[id number] [facility] Last Admin: 11/19/17 16:42 Dose: 70 mls/hr Metronidazole (Flagyl) 500 mg in 100 mls @ 100 mls/hr IVPB Q8 [facility] PRN Reason: Protocol Stop: 11/20/17 23:00 Last Admin: 11/19/17 21:41 Dose: 100 mls/hr Levofloxacin/Dextrose (Levaquin 500mg) 500 mg in 100 mls @ 100 mls/hr IVPB DAILY [facility] PRN Reason: Protocol Last Admin: 11/19/17 19:09 Dose: 100 mls/hr Montelukast Sodium (Singulair) 10 mg PO DAILY [facility] Last Admin: 11/19/17 10:40 Dose: 10 mg Ondansetron HCl (Zofran Inj) 4 mg IVP Q6H PRN PRN Reason: Nausea/Vomiting Oxycodone HCl (Oxycodone Immediate Release Tab) 15 mg PO Q4H PRN PRN Reason: Pain, moderate (4-7) Last Admin: 11/19/17 16:29 Dose: 15 mg Oxycodone HCl (Oxycodone Immediate Release Tab) 30 mg PO Q6H PRN PRN Reason: Pain, severe (8-10) Last Admin: 11/19/17 22:16 Dose: 30 mg Pantoprazole Sodium (Protonix Ec Tab) 20 mg PO 0600,1600 [facility] Last Admin: 11/19/17 16:29 Dose: 20 mg - Labs Labs: 11/18/17 05:45 11/18/17 05:45 PT 15.1 SECONDS (9.4-12.5) H 11/17/17 06:30 INR 1.31 (0.93-1.08) H 11/17/17 06:30 Attending/Attestation - Attestation I have personally seen and examined this patient.: Yes I have fully participated in the care of the patient.: Yes I have reviewed all pertinent clinical information, including history, physical exam and plan: Yes Notes (Text): This is an addendum to GI progress report dictated by Asphalt Layer.The patient was seen and examined earlier. Medical records, lab studies, imagings were reviewed. Last 24 hours events reviewed. Agreed with the above treatment plan as outlined in Asphalt Layer's notes the with the addition of the following 11/19/17 23:21
--- NOTE | 2017-11-19 15:48 | PN ---
DATE: 11/19/2017 PULMONARY PROGRESS NOTE REFERRING PHYSICIAN: Carter Alvarez MD SUBJECTIVE: The patient is sitting at side of the bed. Night was unremarkable. Her diet is advanced by GI. No cough. No sputum production. No nausea. No vomiting. No abdominal pain. Still has a loose bowel movement. No leg pain or leg swelling. OBJECTIVE: GENERAL: In no acute distress. VITAL SIGNS: Temperature is 99, heart rate 67, respiratory rate is 20, blood pressure 117/73, pulse ox 96% on room air. HEENT: Moist mucous membranes. Crowded airway. NECK: Supple. No JVD. LUNGS: Have a fair airflow with few rhonchi. HEART: S1 and S2. ABDOMEN: Soft, nontender, nondistended. Colostomy bag looks okay, draining yellowish stool. EXTREMITIES: There is no edema. NEUROLOGICAL: Awake and alert. Follows simple command. MEDICATIONS: She is on Brovana inhaled twice a day, albuterol/Atrovent nebulizer every 6 hours p.r.n., oxycodone immediate release 50 mg every 4 hours p.r.n., oxycodone immediate release 30 mg for severe pain, potassium with sodium chloride 70 mL/hour, Protonix 20 mg twice a day, Pulmicort inhaled twice a day, Singulair 10 mg daily, Tylenol p.r.n., Zofran p.r.n. basis. LABORATORY DATA: Shows no new lab is available since yesterday. Stool for C. diff and cultures are unremarkable. IMPRESSION AND PLAN: Rectal carcinoma requiring radiation and chemotherapy, had a laparotomy with colostomy, admitted with colitis. Clostridium difficile and culture has been negative. Chronic obstructive lung disease, also has a metastatic disease to the lungs. Pulmonary point of view, doing okay. Continue bronchodilator. Keep head at 45 degrees. Being followed by GI. Colitis maybe related to chemotherapy. Gastric prophylaxis. GI and Oncology followup. Thank you and we will follow with you. Baldemar Mcmahon MD
[2017-11-19] MEDS: Pantoprazole 20 mg EC Tab PO SCH (16:29)
[2017-11-19] MEDS: Potassium Chloride 20 MEQ in Dextrose 5%/0.45% NS 1,000 ML IV SCH (16:42)
[2017-11-19] MEDS: levoFLOXacin 500 mg in D5W 500 MG/100 ML BAG IVPB SCH (19:09)
[2017-11-20] MEDS: metroNIDAZOLE IV 500 mg/100 ml 500 MG/100 ML BAG IVPB SCH ×2 (05:32→13:56)
[2017-11-20] MEDS: Pantoprazole 20 mg EC Tab PO SCH (05:33)
[2017-11-20] MEDS: oxyCODONE 15 mg Immediate Release Tab PO PRN ×2 (05:34→09:38)
[2017-11-20 07:02] LABS: BASO # 0.01 K/mm3 (0.0-2.0); BASO % 0.2 % (0.0-3.0); EOS # 0.2 (0.0-0.7); EOS % 2.9 % (1.5-5.0); GRAN # 3.88 (1.4-6.5); GRAN % 69.4 % (50.0-68.0); HEMOGLOBIN 12.2 g/dL (12.0-16.0); LYMPH # 0.8 (1.2-3.4); LYMPH % 13.4 % (22.0-35.0); MEAN CELL VOLUME 96.4 fl (80.0-105.0); MEAN CORPUSCULAR HEMOGLOBIN 31.3 pg (25.0-35.0); MEAN CORPUSCULAR HGB CONC 32.4 g/dl (31.0-37.0); MEAN PLATELET VOLUME 10.3 fl (7.0-11.0); MONO # 0.8 (0.1-0.6); MONO % 14.1 % (1.0-6.0); RBC 3.9 10^6/uL (3.5-6.1); RED CELL DISTRIBUTION WIDTH 14.8 % (11.5-14.5); WHITE BLOOD COUNT 5.6 10^3/ul (4.5-11.0)
[2017-11-20 07:15] LABS: ALB/GLOB RATIO 1.2 (1.1-1.8); ALBUMIN 3.1 g/dL (3.0-4.8); ALT/SGPT 24 U/L (7-56); AST/SGOT 27 U/L (14-36); BLOOD UREA NITROGEN 6 mg/dL (7-21); CALCIUM 8.8 mg/dL (8.4-10.5); GFR AFRICAN-AMERICAN > 60; GFR NON-AFRICAN AMERICAN > 60
[2017-11-20 07:42] VITALS: BP 103/72; PULSE 61; RESP 16; TEMP 98.2; O2SAT 96
[2017-11-20] MEDS: Arformoterol 15 mcg/2 ml Inh Sol IH SCH (07:45)
[2017-11-20] MEDS: Budesonide 0.5 mg/2 ml Inhal Susp UD IH SCH (07:46)
[2017-11-20] MEDS: levoFLOXacin 500 mg in D5W 500 MG/100 ML BAG IVPB SCH (09:36)
[2017-11-20] MEDS: Potassium Chloride 20 MEQ in Dextrose 5%/0.45% NS 1,000 ML IV SCH (09:37)
[2017-11-20] MEDS: oxyCODONE 30 mg Immediate Release Tab PO PRN (13:55)
--- NOTE | 2017-11-20 15:51 | CP.PCM.PN ---
<Idania King - Last Filed: 11/20/17 15:51> Subjective - Date & Time of Evaluation Date of Evaluation: 11/20/17 Time of Evaluation: 10:15 - Subjective Subjective: Seen and examined at the bedside earlier today, chart review. No acute overnight events reported. The patient reports improvement of abdominal pain. No reports of nausea, vomiting. Tolerating oral intake. Objective - Vital Signs/Intake and Output Vital Signs (last 24 hours): Temp Pulse Resp BP Pulse Ox 98.2 F 61 16 103/72 96 11/20/17 06:00 11/20/17 06:00 11/20/17 06:00 11/20/17 06:00 11/20/17 06:00 Intake and Output: 11/20/17 11/20/17 06:59 18:59 Intake Total 1500 Balance 1500 - Medications Medications: Current Medications Acetaminophen (Tylenol 325mg Tab) 650 mg PO Q4H PRN PRN Reason: Pain, Mild (1-3) Albuterol/Ipratropium (Duoneb 3 Mg/0.5 Mg (3 Ml) Ud) 3 ml IH [id number] PRN PRN Reason: Shortness of Breath Arformoterol Tartrate (Brovana) 15 mcg IH [id number] [facility] Last Admin: 11/20/17 07:45 Dose: 15 mcg Budesonide (Pulmicort Respules) 0.5 mg IH [id number] [facility] Last Admin: 11/20/17 07:46 Dose: 0.5 mg Potassium Chloride 20 meq/ (Dextrose/Sodium Chloride) 1,010 mls @ 70 mls/hr IV .[id number] [facility] Last Admin: 11/20/17 09:37 Dose: 70 mls/hr Metronidazole (Flagyl) 500 mg in 100 mls @ 100 mls/hr IVPB Q8 [facility] PRN Reason: Protocol Stop: 11/20/17 23:00 Last Admin: 11/20/17 05:32 Dose: 100 mls/hr Levofloxacin/Dextrose (Levaquin 500mg) 500 mg in 100 mls @ 100 mls/hr IVPB DAILY [facility] PRN Reason: Protocol Last Admin: 11/20/17 09:36 Dose: 100 mls/hr Montelukast Sodium (Singulair) 10 mg PO DAILY [facility] Last Admin: 11/20/17 09:36 Dose: 10 mg Ondansetron HCl (Zofran Inj) 4 mg IVP Q6H PRN PRN Reason: Nausea/Vomiting Oxycodone HCl (Oxycodone Immediate Release Tab) 15 mg PO Q4H PRN PRN Reason: Pain, moderate (4-7) Last Admin: 11/20/17 09:38 Dose: 15 mg Oxycodone HCl (Oxycodone Immediate Release Tab) 30 mg PO Q6H PRN PRN Reason: Pain, severe (8-10) Last Admin: 11/19/17 22:16 Dose: 30 mg Pantoprazole Sodium (Protonix Ec Tab) 20 mg PO 0600,1600 [facility] Last Admin: 11/20/17 05:33 Dose: 20 mg - Labs Labs: 11/20/17 06:40 11/20/17 06:40 PT 15.1 SECONDS (9.4-12.5) H 11/17/17 06:30 INR 1.31 (0.93-1.08) H 11/17/17 06:30 - Constitutional Appears: No Acute Distress - Head Exam Head Exam: NORMOCEPHALIC - Eye Exam Eye Exam: Normal appearance. absent: Scleral icterus - ENT Exam ENT Exam: Mucous Membranes Moist - Respiratory Exam Respiratory Exam: NORMAL BREATHING PATTERN. absent: Respiratory Distress - Cardiovascular Exam Cardiovascular Exam: +S1, +S2 - GI/Abdominal Exam GI & Abdominal Exam: Soft, Normal Bowel Sounds. absent: Guarding, Tenderness, Rebound Additional comments: positive colostomy intact, no melena or bright red blood. - Extremities Exam Extremities Exam: absent: Calf Tenderness - Neurological Exam Neurological Exam: Alert, Awake, Oriented x3 - Skin Skin Exam: Dry, Warm Assessment and Plan - Assessment and Plan (Free Text) Assessment: Assessment: Abdominal pain, status post CT scan, findings suggestive of colitis, infectious versus drug induced,Nonspecific colitis versus gastroenteritis Metastatic colorectal cancer with metastasis to the long on chemotherapy ( Strivaga) History of COPD Plan: stool cultures negative, blood and urine cultures negative C. difficile negative Recommend purred diet however patient states that she wants to cont soft low residual diet on flagyl and levaquin Continue PPI Patient out of bed Pain management upon discharge recommend to complete oral antibiotics total of 5-7 days, discussed w/ expert medical writer Dr. Dodge working w/ Dr. Brooks. Also discuss w/ patient elective outpatient colonoscopy to be considered and coordinated with oncology, patient currently on chemotherapy. Seen and discussed with Dr. David <Alfredo David V - Last Filed: 11/20/17 22:26> Objective - Vital Signs/Intake and Output Vital Signs (last 24 hours): Temp Pulse Resp BP Pulse Ox 98.2 F 61 16 103/72 96 11/20/17 06:00 11/20/17 06:00 11/20/17 06:00 11/20/17 06:00 11/20/17 06:00 Intake and Output: 11/20/17 11/21/17 18:59 06:59 Intake Total 1080 Balance 1080 - Labs Labs: 11/20/17 06:40 11/20/17 06:40 PT 15.1 SECONDS (9.4-12.5) H 11/17/17 06:30 INR 1.31 (0.93-1.08) H 11/17/17 06:30 Attending/Attestation - Attestation I have personally seen and examined this patient.: Yes I have fully participated in the care of the patient.: Yes I have reviewed all pertinent clinical information, including history, physical exam and plan: Yes Notes (Text): This is an addendum to GI progress report dictated by Idania King APN.The patient was seen and examined earlier. Medical records, lab studies, imagings were reviewed. Last 24 hours events reviewed. Agreed with the above treatment plan as outlined in Idania King APN's notes the with the addition of the following 11/20/17 22:25
--- NOTE | 2017-11-20 18:42 | PN ---
DATE: 11/20/2017 PULMONARY PROGRESS NOTE REFERRING PHYSICIAN: Carter Alvarez MD SUBJECTIVE: She is lying in the bed at 45 degrees. Night was unremarkable. Breathing is better. No cough. No sputum production. No nausea. No vomiting. Diarrhea is improved. Abdominal pain is improved. No leg swelling. OBJECTIVE: GENERAL: In no acute distress. VITAL SIGNS: Temperature is 98, heart rate 61, respiratory rate is 16, blood pressure 103/72, pulse ox 96% on room air. HEENT: Moist mucous membrane. Crowded airway. NECK: Supple. No JVD. LUNGS: Has fair airflow with few rhonchi. HEART: Reveals S1, S2. ABDOMEN: Soft. Colostomy bag work okay. EXTREMITIES: There is no edema. NEUROLOGICAL: Awake and alert. Follows simple command. MEDICATIONS: She is on Brovana inhaled twice a day, DuoNeb every 6 hours p.r.n., Flagyl 500 mg every 8 hours, Levaquin 500 mg daily, oxycodone immediate release 50 mg every 4 hours p.r.n. and also 30 mg immediate release every 6 hours for severe pain, IV fluid with potassium, Protonix 40 mg twice a day, Pulmicort inhaled twice a day, Singulair 10 mg daily, Tylenol p.r.n., Zofran p.r.n. basis. LABORATORY DATA: Shows hemoglobin 12.2, hematocrit 37.6, WBC 5.6, platelet count is 204. Sodium 141, potassium 4.3, chloride 106, bicarbonate 25, BUN 6, creatinine 0.5, glucose 95, calcium 8.8, AST 27, ALT 24, alkaline phosphatase is 95. Albumin is 3.1. IMPRESSION AND PLAN: Rectal carcinoma requiring radiation and chemotherapy and laparotomy with colostomy, been on chemotherapy, chronic obstructive lung disease, has a rectal carcinoma, metastases to the lungs. Pulmonary point view, doing okay. Spoke to Dr. Brooks today. May go home on inhaled bronchodilator when cleared by GI. May need to manipulate chemotherapy. Colitis could be cause of chemotherapy. Gastric prophylaxis. Fall precaution. Encouraged p.o. fluid intake. Outpatient followup. Need pulmonary function test. Thank you and we will follow with you. Baldemar Mcmahon MD [facility] # [id number]
--- NOTE | 2017-11-21 09:51 | PQF GENQUE ---
This form is a permanent part of the medical record DR. HUTCHINSON, Please verify if patient's colitis is related with chemo therapy. Clarification of your documentation is requested to better reflect the severity of illness and intensity of treatment of your patient. Indicators present [] Specify: [] [] Specify: [] [] Specify: [] Location in the medical record that reflects the above clinical findings: [] Treatment Provided: [] PHYSICIAN'S RESPONSE Based on your medical judgment of the clinical indicators outlined above please clarify the following: [] Practitioner response [] If unable to determine, please check the box, sign and date. Present On Admission (POA) Indicator: [] Present at the time of admission [] Not present at the time of admission [] Clinically Undetermined In responding to this query, please exercise your independent professional judgment. The fact that a question is asked does not imply that any particular answer is desired or expected. Thank you for your clarification on this documentation. If you have any questions please call:[ ] * Thank you, [X ] JESSE HARRISmilk sampler PORTIA
--- NOTE | 2017-11-21 16:38 | CP.PCM.DIS ---
Provider - Provider Date of Admission: 11/15/17 23:35 Attending physician: Carter Alvarez MD Time Spent in preparation of Discharge (in minutes): 45 Hospital Course - Lab Results Lab Results: Micro Results 11/16/17 13:30 Stool Stool Culture - Final NO SALMONELLA, SHIGELLA OR CAMPYLOBACTER ISOLATED. 11/16/17 13:30 Stool C. difficile Antigen & Toxin A,B (M - Final Most Recent Lab Values WBC 5.6 10^3/ul (4.5-11.0) 11/20/17 06:40 RBC 3.90 10^6/uL (3.5-6.1) 11/20/17 06:40 Hgb 12.2 g/dL (12.0-16.0) 11/20/17 06:40 Hct 37.6 % (36.0-48.0) 11/20/17 06:40 MCV 96.4 fl (80.0-105.0) 11/20/17 06:40 MCH 31.3 pg (25.0-35.0) 11/20/17 06:40 MCHC 32.4 g/dl (31.0-37.0) 11/20/17 06:40 RDW 14.8 % (11.5-14.5) H 11/20/17 06:40 Plt Count 204 10^3/uL (120.0-450.0) 11/20/17 06:40 MPV 10.3 fl (7.0-11.0) 11/20/17 06:40 Gran % 69.4 % (50.0-68.0) H 11/20/17 06:40 Lymph % (Auto) 13.4 % (22.0-35.0) L 11/20/17 06:40 [place] % (Auto) 14.1 % (1.0-6.0) H 11/20/17 06:40 Eos % (Auto) 2.9 % (1.5-5.0) 11/20/17 06:40 Baso % (Auto) 0.2 % (0.0-3.0) 11/20/17 06:40 Gran # 3.88 (1.4-6.5) 11/20/17 06:40 Lymph # (Auto) 0.8 (1.2-3.4) L 11/20/17 06:40 [place] # (Auto) 0.8 (0.1-0.6) H 11/20/17 06:40 Eos # (Auto) 0.2 (0.0-0.7) 11/20/17 06:40 Baso # (Auto) 0.01 K/mm3 (0.0-2.0) 11/20/17 06:40 PT 15.1 SECONDS (9.4-12.5) H 11/17/17 06:30 INR 1.31 (0.93-1.08) H 11/17/17 06:30 Sodium 141 mmol/L (132-148) 11/20/17 06:40 Potassium 4.3 mmol/L (3.6-5.0) 11/20/17 06:40 Chloride 106 mmol/L (98-107) 11/20/17 06:40 Carbon Dioxide 25 mmol/L (21-33) 11/20/17 06:40 Anion Gap 14 (10-20) 11/20/17 06:40 BUN 6 mg/dL (7-21) L 11/20/17 06:40 Creatinine 0.5 mg/dl (0.7-1.2) L 11/20/17 06:40 Est GFR ( Amer) > 60 11/20/17 06:40 Est GFR (Non-Af Amer) > 60 11/20/17 06:40 Random Glucose 95 mg/dL (70-110) 11/20/17 06:40 Calcium 8.8 mg/dL (8.4-10.5) 11/20/17 06:40 Total Bilirubin 0.4 mg/dL (0.2-1.3) 11/20/17 06:40 AST 27 U/L (14-36) 11/20/17 06:40 ALT 24 U/L (7-56) 11/20/17 06:40 Alkaline Phosphatase 95 U/L (38-126) 11/20/17 06:40 Total Protein 5.8 g/dL (5.8-8.3) 11/20/17 06:40 Albumin 3.1 g/dL (3.0-4.8) 11/20/17 06:40 Globulin 2.7 gm/dL 11/20/17 06:40 Albumin/Globulin Ratio 1.2 (1.1-1.8) 11/20/17 06:40 Lipase 33 U/L (23-300) 11/15/17 18:30 Urine Color Yellow (YELLOW) 11/15/17 18:30 Urine Appearance Clear (CLEAR) 11/15/17 18:30 Urine pH 6.0 (4.7-8.0) 11/15/17 18:30 Ur Specific [place] 1.010 (1.005-1.035) 11/15/17 18:30 Urine Protein Negative mg/dL (<30 mg/dL) 11/15/17 18:30 Urine Glucose (UA) Negative mg/dL (NEGATIVE) 11/15/17 18:30 Urine Ketones Negative mg/dL (NEGATIVE) 11/15/17 18:30 Urine Blood Negative (NEGATIVE) 11/15/17 18:30 Urine Nitrate Negative (NEGATIVE) 11/15/17 18:30 Urine Bilirubin Negative (NEGATIVE) 11/15/17 18:30 Urine Urobilinogen 0.2 E.U./dL (<1 E.U./dL) 11/15/17 18:30 Ur Leukocyte Esterase Small [place]/uL (NEGATIVE) H 11/15/17 18:30 Urine RBC Negative /hpf (0-2) 11/15/17 18:30 Urine WBC 0 - 2 /hpf (0-6) 11/15/17 18:30 Ur Epithelial Cells 1 - 3 /hpf (0-5) 11/15/17 18:30 Stool Occult Blood Negative (NEGATIVE) 11/16/17 13:30 - Hospital Course Hospital Course: 57 y/o Female with pmh of stage 4 metastatic rectal carcinoma metastatic to the lung s/p bowel resection and colosotmy, neutropenia, currently on systemic chemotherapy admitted for intractable abdominal pain found to have colitis on IV abx levofloxacin and flagyl, with improved abdominal pain, however still reporting diarrhea. GI, Dr. David and Pulm Dr. Mcmahon following the patient. Continue IV fluids, monitor clinical labs. Patient was recently treated with Stivarga, which is on hold currently, patient had an appointment today, will be rescheduled. Patient to be discharge and to follow up with Dr Brooks as outpatient. Discharge Exam - Head Exam Head Exam: NORMOCEPHALIC - Eye Exam Eye Exam: EOMI, Normal appearance, PERRL Pupil Exam: NORMAL ACCOMODATION, PERRL - ENT Exam ENT Exam: Mucous Membranes Dry - Respiratory Exam Respiratory Exam: NORMAL BREATHING PATTERN, UNREMARKABLE - Cardiovascular Exam Cardiovascular Exam: REGULAR RHYTHM, +S1, +S2 - GI/Abdominal Exam GI & Abdominal Exam: Normal Bowel Sounds - Neurological Exam Neurological exam: Alert, CN II-XII Intact, Normal Gait, Oriented x3, Reflexes Normal - Psychiatric Exam Psychiatric exam: Normal Affect, Normal Mood - Skin Skin Exam: Dry, Intact, Normal Color, Warm Discharge Plan - Discharge Medications Prescriptions: Albuterol/Ipratropium [Duoneb 3 mg/0.5 mg (3 ml) UD] 3 ml IH [id number] PRN 14 Days neb PRN Reason: Shortness Of Breath Arformoterol [Brovana] 15 mcg IH [id number] 14 Days neb Budesonide [Pulmicort Respules] 0.5 mg IH [id number] 14 Days neb levoFLOXacin [Levaquin] 500 mg PO DAILY #7 tab Metronidazole [Flagyl] 500 mg PO Q8 #21 tablet oxyCODONE [oxyCODONE Immediate Release Tab] 15 mg PO Q6 #120 tab - Follow Up Plan Condition: FAIR Disposition: HOME/ ROUTINE Instructions: Irritable Bowel Syndrome, Ulcerative Colitis (DC) Additional Instructions: 1. Hold Stivarga until followup appointment with Dr. Brooks next week. 2. Patient is to follow up with Dr. Mcmahon within 1-2 week 3. Patient is to complete antibiotics course for 7 days as prescribed 4. Patient is to consider outpatient colonoscopy with Dr. David in approximately 3 weeks through colostomy. 5. Patient is to follow modified diet as per Presentation Specialist as instructed 6. Patient is welcome to return to [facility] if symptoms change or worsen. Referrals: Esperanza Brooks MD [Staff Provider] - Alfredo David MD [Medical Doctor] - Baldemar Mcmahon MD [Staff Provider] -
== END 2017-11-20 17:42 | disposition home or self-care (01) | DRG 394 ==
LOC: ED 17:14 → ERH 23:35 → 3RNO 11-16 00:46
PROVIDERS: ADMIT Family Medicine; ATTEND Family Medicine
PROC: 3E0F7GC Introduction of Other Therapeutic Substance into Respiratory Tract, Via Natural or Artificial Opening (ICD-10-PCS; principal; 2017-11-17)
DX: K52.1 Toxic gastroenteritis and colitis (principal); T45.1X5A Adverse effect of antineoplastic and immunosuppressive drugs, initial encounter; C78.7 Secondary malignant neoplasm of liver and intrahepatic bile duct; C78.00 Secondary malignant neoplasm of unspecified lung; C19 Malignant neoplasm of rectosigmoid junction; J44.9 Chronic obstructive pulmonary disease, unspecified; R62.7 Adult failure to thrive; G89.3 Neoplasm related pain (acute) (chronic); Z93.3 Colostomy status; Z88.0 Allergy status to penicillin; Z87.891 Personal history of nicotine dependence

== ENCOUNTER 2017-12-19 11:31 | Day surgery (SDC) | payer MEDICARE, MEDICAID ==
[2017-12-17 10:16] VITALS: BMI 18.6
[2017-12-19] MEDS ORDERED: Lidocaine 1% Inj (20ml) ONE (14:02)
[2017-12-19] MEDS ORDERED: Propofol 10 mg/ml Inj (20 ML) ONE (14:02)
[2017-12-19] MEDS ORDERED: Sodium Chloride 0.9% 1,000 ML IV SCH (14:30)
[2017-12-19 16:05] VITALS: BP 148/93; PULSE 64; RESP 15; TEMP 98.3
[2017-12-19 16:14] VITALS: O2SAT 97
== END 2017-12-19 15:55 | disposition home or self-care (01) ==
LOC: ENDO 11:31
PROVIDERS: ATTEND Internal Medicine Gastroenterology
DX: K52.9 Noninfective gastroenteritis and colitis, unspecified (principal); Z85.038 Personal history of other malignant neoplasm of large intestine
CPT/HCPCS: 45380; 88305; J2704; J7030; J7040

== ENCOUNTER 2018-06-25 12:44 | Outpatient (CLI) | payer MEDICARE, MEDICAID | END 2018-06-25 12:45 | disposition home or self-care (01) | LOC: OPLAB 12:44 ==

== ENCOUNTER 2018-06-30 14:59 | Outpatient (CLI) | payer MEDICARE, MEDICAID | END 2018-06-30 15:00 | disposition home or self-care (01) | LOC: OPLAB 14:59 ==

== ENCOUNTER 2018-07-07 11:18 | Outpatient (CLI) | payer MEDICARE, MEDICAID | END 2018-07-07 11:19 | disposition home or self-care (01) | LOC: OPLAB 11:18 ==

== ENCOUNTER 2018-07-08 11:35 | Outpatient (CLI) | payer MEDICARE, MEDICAID | END 2018-07-08 11:36 | disposition home or self-care (01) | LOC: OPLAB 11:35 ==

== ENCOUNTER 2018-07-13 11:43 | Outpatient (CLI) | payer MEDICARE, MEDICAID | END 2018-07-13 11:44 | disposition home or self-care (01) | LOC: OPLAB 11:43 | DX: E83.40 Disorders of magnesium metabolism, unspecified (principal); D64.9 Anemia, unspecified; E78.5 Hyperlipidemia, unspecified; M81.0 Age-related osteoporosis without current pathological fracture ==

== ENCOUNTER 2018-07-14 11:51 | Outpatient (CLI) | payer MEDICARE, MEDICAID | END 2018-07-14 11:52 | disposition home or self-care (01) | LOC: OPLAB 11:51 ==

== ENCOUNTER 2018-07-14 12:43 | Outpatient (CLI) | payer MEDICARE, MEDICAID | END 2018-07-14 12:44 | disposition home or self-care (01) | LOC: RAD 12:43 ==

== ENCOUNTER 2018-07-20 11:29 | Outpatient (CLI) | payer MEDICARE, MEDICAID | END 2018-07-20 11:30 | disposition home or self-care (01) | LOC: OPLAB 11:29 | DX: E83.40 Disorders of magnesium metabolism, unspecified (principal); M81.0 Age-related osteoporosis without current pathological fracture; E78.5 Hyperlipidemia, unspecified; D64.9 Anemia, unspecified ==

== ENCOUNTER 2018-07-21 13:06 | Outpatient (CLI) | payer MEDICARE, MEDICAID | END 2018-07-21 13:07 | disposition home or self-care (01) | LOC: OPLAB 13:06 ==

== ENCOUNTER 2018-07-27 13:10 | Outpatient (CLI) | payer MEDICARE, MEDICAID | END 2018-07-27 13:11 | disposition home or self-care (01) | LOC: OPLAB 13:10 ==

== ENCOUNTER 2018-07-28 12:49 | Outpatient (CLI) | payer MEDICARE, MEDICAID | END 2018-07-28 12:50 | disposition home or self-care (01) | LOC: OPLAB 12:49 ==

== ENCOUNTER 2018-08-04 12:18 | Outpatient (CLI) | payer MEDICARE, MEDICAID | END 2018-08-04 12:19 | disposition home or self-care (01) | LOC: OPLAB 12:18 | DX: D64.9 Anemia, unspecified (principal); E83.40 Disorders of magnesium metabolism, unspecified; M81.0 Age-related osteoporosis without current pathological fracture; E78.5 Hyperlipidemia, unspecified ==

== ENCOUNTER 2018-08-05 12:41 | Outpatient (CLI) | payer MEDICARE, MEDICAID | END 2018-08-05 12:42 | disposition home or self-care (01) | LOC: OPLAB 12:41 ==

== ENCOUNTER 2018-08-10 12:04 | Outpatient (CLI) | payer MEDICARE, MEDICAID | END 2018-08-10 12:05 | disposition home or self-care (01) | LOC: OPLAB 12:04 ==

== ENCOUNTER 2018-08-11 12:21 | Outpatient (CLI) | payer MEDICARE, MEDICAID | END 2018-08-11 12:22 | disposition home or self-care (01) | LOC: OPLAB 12:21 ==

== ENCOUNTER 2018-08-17 12:52 | Outpatient (CLI) | payer MEDICARE, MEDICAID | END 2018-08-17 12:53 | disposition home or self-care (01) | LOC: OPLAB 12:52 ==

== ENCOUNTER 2018-08-18 14:10 | Outpatient (CLI) | payer MEDICARE, MEDICAID | END 2018-08-18 14:11 | disposition home or self-care (01) | LOC: OPLAB 14:10 ==

== ENCOUNTER 2018-08-25 12:28 | Outpatient (CLI) | payer MEDICARE, MEDICAID | END 2018-08-25 12:29 | disposition home or self-care (01) | LOC: OPLAB 12:28 ==

== ENCOUNTER 2018-08-31 13:25 | Outpatient (CLI) | payer MEDICARE, MEDICAID | END 2018-08-31 13:26 | disposition home or self-care (01) | LOC: OPLAB 13:25 ==

== ENCOUNTER 2018-09-01 13:23 | Outpatient (CLI) | payer MEDICARE, MEDICAID | END 2018-09-01 13:24 | disposition home or self-care (01) | LOC: OPLAB 13:23 ==

== ENCOUNTER 2018-09-07 12:54 | Outpatient (CLI) | payer MEDICARE, MEDICAID | END 2018-09-07 12:55 | disposition home or self-care (01) | LOC: OPLAB 12:54 ==

== ENCOUNTER 2018-09-08 13:20 | Outpatient (CLI) | payer MEDICARE, MEDICAID | END 2018-09-08 13:21 | disposition home or self-care (01) | LOC: OPLAB 13:20 ==

== ENCOUNTER 2018-09-15 13:46 | Outpatient (CLI) | payer MEDICARE, MEDICAID | END 2018-09-15 13:47 | disposition home or self-care (01) | LOC: OPLAB 13:46 ==

== ENCOUNTER 2018-09-16 13:01 | Outpatient (CLI) | payer MEDICARE, MEDICAID | END 2018-09-16 13:02 | disposition home or self-care (01) | LOC: OPLAB 13:01 ==

== ENCOUNTER 2018-09-17 12:15 | Outpatient (CLI) | payer MEDICARE, MEDICAID | END 2018-09-17 12:16 | disposition home or self-care (01) | LOC: OPLAB 12:15 ==

== ENCOUNTER 2018-09-22 13:25 | Outpatient (CLI) | payer MEDICARE, MEDICAID | END 2018-09-22 13:26 | disposition home or self-care (01) | LOC: OPLAB 13:25 ==

== ENCOUNTER 2018-09-23 13:17 | Outpatient (CLI) | payer MEDICARE, MEDICAID | END 2018-09-23 13:18 | disposition home or self-care (01) | LOC: OPLAB 13:17 ==

== ENCOUNTER 2018-09-28 13:07 | Outpatient (CLI) | payer MEDICARE, MEDICAID | END 2018-09-28 13:08 | disposition home or self-care (01) | LOC: OPLAB 13:07 ==

== ENCOUNTER → 2018-09-29 | Outpatient (CLI) | payer MEDICARE, MEDICAID | LOC: OPLAB 13:16 ==

== ENCOUNTER 2018-10-05 13:33 | Outpatient (CLI) | payer MEDICARE, MEDICAID | END 2018-10-05 13:34 | disposition home or self-care (01) | LOC: OPLAB 13:33 ==

== ENCOUNTER 2018-10-06 11:19 | Outpatient (CLI) | payer MEDICARE, MEDICAID | END 2018-10-06 11:20 | disposition home or self-care (01) | LOC: OPLAB 11:19 ==

== ENCOUNTER 2018-10-12 05:56 | Outpatient (CLI) | payer MEDICARE, MEDICAID | END 2018-10-16 05:53 | disposition home or self-care (01) | LOC: PET-BROA 05:56 ==

== ENCOUNTER 2018-10-19 18:19 | Outpatient (CLI) | payer MEDICARE, MEDICAID | END 2018-10-19 18:20 | disposition home or self-care (01) | LOC: LAB 18:19 ==

== ENCOUNTER 2018-10-26 12:37 | Outpatient (CLI) | payer MEDICARE, MEDICAID | END 2018-10-26 12:38 | disposition home or self-care (01) | LOC: OPLAB 12:37 ==

== ENCOUNTER → 2018-10-27 | Outpatient (CLI) | payer MEDICARE, MEDICAID | LOC: OPLAB 12:42 ==

== ENCOUNTER 2018-11-09 12:45 | Outpatient (CLI) | payer MEDICARE, MEDICAID | END 2018-11-09 12:46 | disposition home or self-care (01) | LOC: OPLAB 12:45 ==

== ENCOUNTER 2018-11-10 13:09 | Outpatient (CLI) | payer MEDICARE, MEDICAID | END 2018-11-10 13:10 | disposition home or self-care (01) | LOC: OPLAB 13:09 ==